=== PATIENT | male | born 1960 | race Caucasian/White ===

== ENCOUNTER 2019-09-14 10:53 | Outpatient (CLI) | payer OTHER, SELFPAY ==
--- NOTE | 2019-09-14 11:01 | US_ITS ---
WS: [id number] ULTRASOUND ABDOMEN LIMITED CLINICAL INFORMATION: RUQ PAIN COMPARISON: None. FINDINGS: Liver Size: Enlarged Craniocaudal length: 20.1 cm. Echogenicity: Diffuse fatty infiltration Surface nodularity: None. Mass (size and location): None. Bile ducts Intrahepatic ducts: Normal. Common bile duct diameter: 5.5 mm. Gallbladder Normal. Gallstones: None. Gallbladder sludge: None. Gallbladder wall thickening: None. Pericholecystic fluid: None. Sonographic Juan sign: Absent. Pancreas Normal as visualized. Right kidney: Normal. Hydronephrosis: None. Size: 11.5 cm x 6.6 cm x 6.1 cm. Right upper pole renal cyst measuring 1.4 x 1.3 x 1.4 cm Abdominal aorta and IVC Visualized portions are normal. Ascites: None. US/US abdomen limited [id number] IMPRESSION: 1. Hepatomegaly with diffuse fatty infiltration. 2. Gallbladder is normal. 3. No hydronephrosis in right kidney. 4. Right renal cyst measuring 1.4 x 1.3 x 1.4 cm
== END 2019-09-14 10:54 | disposition home or self-care (01) ==
LOC: RAD 10:56
PROVIDERS: Family Provider Family Medicine; PCP Family Medicine; Visit Provider Family Medicine
DX: K76.0 Fatty (change of) liver, not elsewhere classified (principal); N28.1 Cyst of kidney, acquired; R10.11 Right upper quadrant pain
CPT/HCPCS: 76705

== ENCOUNTER 2019-09-15 22:43 | Emergency (ER) | payer OTHER, SELFPAY ==
[2019-09-15 22:48] VITALS: BP 152/90; PULSE 71; RESP 18; TEMP 36.4; O2SAT 98; BMI 29.1
--- NOTE | 2019-09-15 22:58 | ED_ITS ---
Entered by Tonie Harris, acting as scribe for Jose Pierce DO HPI - Extremity Problem General: Chief complaint: Extremity Injury, Upper Stated complaint: right arm pain Time Seen by Provider: 09/15/19 23:12 Source: patient Mode of arrival: ambulatory Limitations: no limitations History of Present Illness: HPI Narrative: 59 yo m came to the er for rt shoulder pain. Pt states that [facility] and was told he had a bone spur. Pt states that he has been in so much pain and has not bee able to sleep or move his shoulder at all. Pt states that he cannot move his shoulder and has pain radiating down his arm. MD Complaint: extremity pain Onset (ago): day(s) (today) Pain Consistency: constant Location: right (shoulder) Quality: sharp Radiation: proximal and distal Relieving factors: nothing Associated symptoms: Reports no associated symptoms; Deny chest pain, fever(s) or rash Review of Systems Const: Denies: fever or chills Eyes: Denies: change in vision or blurry vision Card: Denies: chest pain, palpitations, irregular heart rhythm, edema, shortness of breath on exertion or shortness of breath when lying down Resp: Denies: shortness of breath, productive cough, non-productive cough or wheezing GI: Denies: abdominal pain, nausea or vomiting : Denies: difficulty urinating or blood in urine Musc: Denies: neck pain Skin/Breast: Denies: rash, itching or redness Neuro: Denies: headache, dizziness, vertigo or confusion PFSH ED PFSH: Statuses (acute, chronic, etc) shown below reflect problem list status as previously entered and may not be historically accurate Social History Smoking and tobacco status: never smoked Physical Exam Const: GENERAL APPEARANCE: well developed ORIENTATION/CONSCIOUSNESS: Yes oriented to person, Yes oriented to place and Yes oriented to time HENMT: COMMON NORMALS: normocephalic, external ears normal and external nose normal HEAD & SCALP: normocephalic; no scalp tenderness FACE & SINUS: normal facial exam NOSE: external nose normal and no nasal discharge EXTERNAL EAR: Yes external ears normal MOUTH: tongue normal Eye: COMMON NORMALS: PERRL, EOMs intact bilaterally and conjunctivae normal EYELID: eyelids normal CONJUNCTIVA: Yes conjunctivae normal PUPIL: Yes PERRL Neck/C-Spine: COMMON NORMALS: full ROM GENERAL: No tracheal deviation CERVICAL SPINE: Yes normal cervical lordosis and No cervical spine tenderness Chest: COMMONS NORMALS: inspection of chest normal CHEST: No tenderness Resp: COMMON NORMALS: clear to auscultation bilaterally EFFORT & INSPECTION: No tachypneic, No respiratory distress, No retractions, No uses accessory muscles and No tracheal deviation AUSCULTATION: clear to auscultation bilaterally, no rhonchi, no wheezes and lung sounds not diminished Cardio: COMMON NORMALS: regular rate and regular rhythm RATE: regular rate RHYTHM: regular rhythm HEART SOUNDS: no murmurs PERIPHERAL PULSES: radial pulses present GI: INSPECTION: No abdominal distension AUSCULTATION: No hyperactive bowel sounds and No hypoactive bowel sounds PALPATION: No guarding and No rigid Extremity: NARRATIVE EXTREMITY EXAM: Examination of the right shoulder reveals tenderness over the biceps groove. There is some mild joint line tenderness. There is mild rotator cuff footprint tenderness. No AC joint tenderness. Main area of tenderness is the biceps. He has limited range of motion due to pain. There is no swelling or effusion noted by palpation. Neuro: SENSORIUM/ORIENTATION: Yes oriented to person, Yes oriented to place and Yes oriented to time Psych: COMMON NORMALS: mental status grossly normal Skin: COMMON NORMALS: no rashes or lesions noted GENERAL SKIN EXAM: no rashes or lesions noted Course ED course: 59-year-old male with nontraumatic right-sided shoulder pain. He cries on exam. X-ray reveals some mild glenohumeral arthritis. There is significant AC joint arthritis with spurring. There is also evidence of calcific tendinopathy of the rotator cuff. No cause for concern of infection. Vital Signs: Vital signs: Vital Signs Temperature 97.6 F 09/15/19 22:48 Pulse Rate 69 09/16/19 00:25 Respiratory Rate 17 09/16/19 00:25 Blood Pressure 139/85 09/16/19 00:25 Pulse Oximetry 96 09/16/19 00:25 Discharge Plan Discharge Patient Disposition: Home, Self-Care Clinical Impression: Bicipital tendinitis, right shoulder, Calcific tendinitis of right shoulder Condition: Stable Prescriptions: [place] 7.5-325 mg tablet 1 tab PO Q6H Qty: 10 RF: 0 Medrol (M[place]esh) 4 mg tablets,dose pack See Rx Instructions .ROUTE .COMPLEX Qty: 21 RF: 0 Discharge Orders: Discharge Order (Routine); Ordered 09/16/19 Ordered By: Jose Pierce Referrals: Kady Murguia DO [Primary Care Provider] - 4-7 days Discharge Diet: Usual diet Discharge Activity: Increase activity as tolerated Patient Instructions: Rotator Cuff Tendinitis (ED), Calcific Tendinitis (ED) Discharge Date/Time: 09/16/19 00:26 Coding Level of Care Code ED Manager Copy for Chg Fwd The documentation recorded by the Steven martinez Stephanie Lyn, accurately reflects the service I personally performed and the decisions made by Stan carlos Jeremy John, DO Sep 15, 2019 22:43
--- NOTE | 2019-09-15 23:34 | XRR_ITS ---
PROCEDURE INFORMATION: Exam: XR Right Shoulder Exam date and time: 09/15/2019 11:52 PM Age: 59 years old Clinical indication: Right; Patient HX: RT shoulder pain, states he has a bone spur TECHNIQUE: Imaging protocol: XR Right shoulder. Views: 2 or more views. COMPARISON: No relevant prior studies available. FINDINGS: Bones/joints: Mild degenerative changes of the right acromioclavicular and glenohumeral joints. Multiple tiny calcified density superior to the humeral head may be loose bodies within the glenohumeral joint versus tendon calcifications. Soft tissues: Normal. XR/XR shoulder RT min 2V* [id number] IMPRESSION: Mild degenerative changes.
[2019-09-15 23:49] VITALS: RESP 18; O2SAT 68
[2019-09-15] MEDS: HYDROmorphone 1 mg/mL INJ 1 mL 2 MG IM (23:49)
[2019-09-15] MEDS: ketorolac 10 mg Tablet PO (23:50)
[2019-09-15] MEDS: ondansetron 4 MG Tablet PO (23:50)
[2019-09-16] MEDS: dexamethasone 4 mg Tablet 8 MG PO (00:05)
[2019-09-16 00:25] VITALS: BP 139/85; PULSE 69; RESP 17; O2SAT 96
== END 2019-09-16 00:26 | disposition home or self-care (01) ==
PROVIDERS: Emergency Provider Emergency Medicine; Family Provider Family Medicine; PCP Family Medicine
DX: M75.21 Bicipital tendinitis, right shoulder (principal); M75.31 Calcific tendinitis of right shoulder
CPT/HCPCS: 73030; 96372; 99281; 99283; J1170; J8540; Q0162

== ENCOUNTER → 2019-10-12 08:00 | Outpatient (BNVA) | payer OTHER, SELFPAY | PROVIDERS: Family Provider Family Medicine; PCP Family Medicine; Visit Provider Urology | DX: R33.9 Retention of urine, unspecified (principal); R97.20 Elevated prostate specific antigen [PSA]; N40.1 Benign prostatic hyperplasia with lower urinary tract symptoms | CPT/HCPCS: 81001 ==

== ENCOUNTER 2019-10-25 20:00 | Outpatient (CLI) | payer OTHER, SELFPAY | END 2019-10-25 20:01 | disposition home or self-care (01) | LOC: SLEEP 10-26 10:21 | PROVIDERS: Family Provider Family Medicine; PCP Family Medicine; Visit Provider Emergency Medicine Emergency Medical Services | DX: G47.33 Obstructive sleep apnea (adult) (pediatric) (principal) | CPT/HCPCS: 95810 ==

== ENCOUNTER → 2020-01-16 07:48 | Outpatient (BNVA) | payer OTHER, SELFPAY | PROVIDERS: Family Provider Family Medicine; PCP Family Medicine; Visit Provider Urology | DX: R97.20 Elevated prostate specific antigen [PSA] (principal); N40.1 Benign prostatic hyperplasia with lower urinary tract symptoms; R35.0 Frequency of micturition | CPT/HCPCS: 81001; 84153 ==

== ENCOUNTER → 2020-07-18 07:40 | Outpatient (BNVA) | payer OTHER, SELFPAY | PROVIDERS: Family Provider Family Medicine; PCP Family Medicine; Visit Provider Urology | DX: N40.1 Benign prostatic hyperplasia with lower urinary tract symptoms (principal); R35.0 Frequency of micturition; R97.20 Elevated prostate specific antigen [PSA] | CPT/HCPCS: 81003; 84153 ==

== ENCOUNTER 2020-11-22 12:01 | Emergency (ER) | payer OTHER, SELFPAY ==
[2020-11-22 12:09] VITALS: BP 138/84; PULSE 78; RESP 18; TEMP 36.4; O2SAT 96; BMI 27.8
--- NOTE | 2020-11-22 13:05 | W.ED.ABDPA2 ---
HPI - Abdominal Pain General: Chief Complaint: Abdominal Pain Stated Complaint: RUQ PAIN Time Seen by Provider: 11/22/20 12:36 Source: patient Mode of arrival: ambulatory Limitations: no limitations History of Present Illness: HPI narrative: Patient presents to the emergency department with right upper quadrant pain that started earlier today. He noticed the pain when he was riding a golf cart [place] the [place]. [place] Yesterday, he played golf and after he finished his golf session he went to the driving range and hit about 800 shots. He thinks his pain is from the golf and that he may have pulled a muscle but feels food and nutrition services supervisor thought it may be his appendix and so asked him to come to the emergency department to be evaluated. MD elicited complaint: abdominal pain Pertinent past history: none Onset (ago): hour(s) (4) Pain Consistency: constant Location: RUQ Severity: moderate Quality: sharp Radiation: none Migration to: no migration Exacerbating factors: movement Relieving factors: nothing Associated Symptoms: Denies anorexia, belching, bloating, change in bowel habits, change in stool character, chills, coffee ground emesis, constipation, GI cramping, diarrhea, dyspepsia, dysuria, excessive flatus, fever(s), heartburn, hematochezia, hematuria, hematemesis, fecal incontinence, loose stools, melena, nausea, poor appetite, syncope and vomiting Review of Systems General: Reports: 10 or more systems reviewed and unremarkable except in HPI and below Const: Denies: fever(s) or chills Card: Denies: syncope GI: Denies: nausea, vomiting, hematemesis, coffee ground emesis, heartburn, diarrhea, constipation, bloating, GI cramping, belching, excessive flatus, fecal incontinence, change in bowel habits, change in stool character, hematochezia or melena : Denies: dysuria or hematuria PFSH ED PFSH: Medical History Benign prostatic hyperplasia with lower urinary tract symptoms Elevated PSA Erectile dysfunction Urinary retention Surgical History H/O prostate biopsy History of amputation of finger Status post colonoscopy Family History Mother , IN HER 60'S COPD (chronic obstructive pulmonary disease) Father Prostate cancer Denies family history of Anesthesia complication Bleeding disorder Social History Smoking and tobacco status: former smoker Alcohol intake: current Alcohol intake frequency: holidays/special occasions only Adopted: No Caregiver/support person: No Lives independently: No Household members: spouse Marital status: Current occupational status: employed History of recent travel: No Current gender identity: Male Physical Exam Const: COMMON NORMALS: no acute distress, average body habitus, patient oriented x3, no limitations, healthy appearing, alert and well nourished Neck/C-Spine: COMMON NORMALS: no meningeal signs and no JVD Resp: COMMON NORMALS: normal respiratory effort, No retractions, No use of accessory muscles, clear to auscultation bilaterally and percussion normal AUSCULTATION: clear to auscultation bilaterally PERCUSSION: percussion normal Cardio: COMMON NORMALS: no JVD, regular rate, regular rhythm, S1 normal heart sound present, S2 normal heart sound present, No gallops present (Cardio), No clicks present (Cardio), No murmurs present (Cardio), No rub (Cardio) and Peripheral pulses 2+ throughout RATE: regular rate RHYTHM: regular rhythm HEART SOUNDS: S1 normal heart sound present and S2 normal heart sound present PERIPHERAL PULSES: Peripheral pulses 2+ throughout GI: COMMON NORMALS: Normal to inspection, nondistended, normoactive bowel sounds present, Soft to palpation, No hepatosplenomegaly present, no masses and no bruits PALPATION: Yes Soft to palpation, Yes Tenderness to palpation present (GI) Details: RUQ and Yes No hepatosplenomegaly present Extremity: COMMON NORMALS: normal to inspection, full ROM, capillary refill normal, no calf tenderness and no pedal edema Neuro: COMMON NORMALS: patient oriented x3 SENSORIUM/ORIENTATION: Yes alert MENINGEAL SIGNS: Yes no meningeal signs Skin: COMMON NORMALS: no rashes or lesions noted, no wounds, turgor normal, no jaundice, no petechiae and no mottling GENERAL SKIN EXAM: no rashes or lesions noted and turgor normal Course Reevaluation(s): Reevaluation #1: Discussed his lab and findings with him, negative for acute findings. Liver function test normal, no signs of an infection and UA negative. He most likely has a strain of his abdominal wall muscles and will be managed as such conservatively. He voiced understanding and is in agreement with the plan. Time: 14:06 Vital Signs: Vital signs: Vital Signs Temperature 97.6 F 11/22/20 12:09 Pulse Rate 78 11/22/20 12:09 Respiratory Rate 18 11/22/20 12:09 Blood Pressure 138/84 11/22/20 12:09 Pulse Oximetry 96 11/22/20 12:09 MDM - Abdominal Pain MDM Narrative: Medical decision making narrative: 60 year old male who presents to the ED with RUQ pain. He played a lot of golf yesterday and he thought this may be the cause of his pain. He however wanted to be checked to make sure nothing life-threatening was going on. Examination and evaluation was unremarkable in the emergency department and there was no indication for imaging. He is discharged home and is managed as a case of a muscular strain. Medical Records: Attestation: I reviewed the patient's medical records. Lab Data: Attestation: I reviewed the patient's lab results. Labs: Lab Results 11/22/20 11/22/20 11/22/20 Range/Units 12:50 13:28 13:28 WBC 7.1 (4.0-10.0) 10^3/ uL RBC 5.45 H (4.1-5.3) 10^6/u L Hgb 15.1 (11.7-16.6) g/dL Hct 46.0 (42.0-52.0) % MCV 84.4 (80-94) fL MCH 27.7 L (28.0-34.0) pg MCHC 32.8 (30.0-36.0) g/dL RDW 12.8 (12.1-15.1) % Plt Count 258 (130-400) 10^3/c mm MPV 11.1 H (7.4-10.4) fL Neut % (Auto) 69.6 % Lymph % (Auto) 21.9 % Dickenson % (Auto) 7.1 % Eos % (Auto) 0.3 % Baso % (Auto) 0.7 % Neut # (Auto) 4.94 (1.8-7.7) 10^3/u L Lymph # (Auto) 1.6 (0.8-4.8) 10^3/u L Dickenson # (Auto) 0.5 (0.2-0.9) 10^3/u L Eos # (Auto) 0.0 (0.0-0.8) 10^3/u L Baso # (Auto) 0.1 (0.0-0.1) 10^3/u L Nucleated RBC % (a uto) 0 % Nucleated RBCs # 0.0 /100WBC Sodium 136 (136-145) mmol/L Potassium 4.0 (3.5-5.1) mmol/L Chloride 104 (98-107) mmol/L Carbon Dioxide 24 (22-29) mmol/L Anion Gap 12.0 (5-19) BUN 14 (8-23) mg/dL Creatinine 0.8 (0.7-1.2) mg/dL GFR Calculation 98.0 (90-130) mL/min Glucose 91 (65-115) mg/dL Calculated Osmolal ity 282 L (285-295) mOsm/k g Calcium 8.6 (8.5-10.5) mg/dL Total Bilirubin 0.3 (0.15-1.2) mg/dL AST 14 (0-40) U/L ALT 24 (0-41) U/L Alkaline Phosphata se 57 (40-130) IU/L C-Reactive Protein 1.9 (0.0-4.9) mg/L Total Protein 6.7 (6.6-8.7) g/dL Albumin 4.3 (3.5-5.2) g/dL Globulin 2.4 (1.3-4.6) g/dL Lipase 40 (13-60) U/L Urine Color Yellow (Yellow) Urine Appearance Clear (CLEAR) Urine pH 5 (5-7) Ur Specific Gravit y 1.020 (1.005-1.030) Urine Protein Neg (Negative) Urine Glucose (UA) Norm (Normal) Urine Ketones Negative (Negative) Urine Blood Neg (Negative) Urine Nitrate Negative (Negative) Urine Bilirubin Neg (Negative) Urine Urobilinogen Norm (Negative) mg/dL Ur Leukocyte Maddie ase Negative (Negative) Discharge Plan Discharge Patient Disposition: Home Clinical Impression: Abdominal muscle strain Qualifiers: Encounter type: initial encounter Qualified Code(s): S39.011A - Strain of muscle, fascia and tendon of abdomen, initial encounter Condition: Stable Prescriptions: Continued meloxicam 15 mg tablet 15 mg PO DAILY PRN (Reason: Pain) RF: 0 tamsulosin 0.4 mg capsule 0.4 mg PO QAM RF: 0 finasteride 5 mg tablet 5 mg PO QAM RF: 0 Discharge Orders: Discharge ED (Routine); Ordered 11/22/20 Ordered By: Boone Fenton Referrals: Lorenzo Avitia DO [Primary Care Provider] - 1-3 days Discharge Diet: Usual diet Discharge Activity: Limit activity as instructed Patient Instructions: Muscle Strain (ED) Activity Restrictions/Additional Instructions: Return for any new or worsening symptoms. Take Tylenol or ibuprofen as needed for pain. Apply ice to the affected area for 15 minutes at the time with at least 20 minutes break between each application of ice for the first 24 hours, and then you can switch to warm compress like a heating pad. Follow-up with your primary care provider within 3 days. Coding Level of Care Code ED Bicycle Mechanic for Josr Bennett
[2020-11-22 13:34] LABS: Basophils # 0.1 10^3/uL (0.0-0.1); Basophils % 0.7 %; Eosinophils % 0.3 %; Hemoglobin 15.1 g/dL (11.7-16.6); Lymphocytes # 1.6 10^3/uL (0.8-4.8); Lymphocytes % 21.9 %; Mean Corpuscular HGB Conc 32.8 g/dL (30.0-36.0); Mean Corpuscular Hemoglobin 27.7 pg (28.0-34.0); Mean Corpuscular Volume 84.4 fL (80-94); Mean Platelet Volume 11.1 fL (7.4-10.4); Monocytes # 0.5 10^3/uL (0.2-0.9); Monocytes % 7.1 %; Neutrophils # 4.94 10^3/uL (1.8-7.7); Neutrophils % 69.6 %; Nucleated Red Blood Cells % 0 %; Platelet Count 258 10^3/cmm (130-400); Red Blood Count 5.45 10^6/uL (4.1-5.3); Red Cell Distribution Width 12.8 % (12.1-15.1); White Blood Count 7.1 10^3/uL (4.0-10.0)
[2020-11-22 13:52] LABS: Add Urine Microscopic? NO; Charge for UA Resulting for Rev
[2020-11-22 13:54] LABS: Bilirubin Urine Neg (Negative); Blood Urine Neg (Negative); Glucose Urine UA Norm (Normal); Ketones Urine Negative (Negative); Leukocyte Esterase Urine Negative (Negative); Nitrate Urine Negative (Negative); Protein Urine Neg (Negative); Urine Appearance Clear (CLEAR); Urine Color Yellow (Yellow); Urobilinogen Urine Norm (Negative); pH Urine 5 (5-7)
[2020-11-22 13:59] LABS: Alanine Aminotransferase 24 U/L (0-41); Albumin Level 4.3 g/dL (3.5-5.2); Alkaline Phosphatase 57 IU/L (40-130); Aspartate Amino Transferase 14 U/L (0-40); Blood Urea Nitrogen 14 mg/dL (8-23); C Reactive Protein 1.9 mg/L (0.0-4.9); Calcium 8.6 mg/dL (8.5-10.5); Carbon Dioxide 24 mmol/L (22-29); Chloride 104 mmol/L (98-107); Globulin 2.4 g/dL (1.3-4.6); Glucose 91 mg/dL (65-115); Lipase 40 U/L (13-60); Osmolality Calculated 282 mOsm/kg (285-295); Sodium 136 mmol/L (136-145); Total Bilirubin 0.3 mg/dL (0.15-1.2); Total Protein 6.7 g/dL (6.6-8.7)
== END 2020-11-22 14:14 | disposition home or self-care (01) ==
PROVIDERS: Emergency Provider Family Medicine; PCP Emergency Medicine Emergency Medical Services
DX: S39.011A Strain of muscle, fascia and tendon of abdomen, initial encounter (principal); Z87.891 Personal history of nicotine dependence; X50.3XXA Overexertion from repetitive movements, initial encounter; Y93.53 Activity, golf
CPT/HCPCS: 80053; 81003; 83690; 85025; 86140; 99283

== ENCOUNTER 2021-05-07 11:46 | Emergency (ER) | payer OTHER, SELFPAY ==
--- NOTE | 2021-05-07 12:18 | W.ED.CHESTPA ---
HPI - Chest Pain General: Chief Complaint: Chest Pain Stated Complaint: [facility] Time Seen by Provider: 05/07/21 12:18 History of Present Illness: HPI narrative: Mr. Collazo is a 61-year-old gentleman without significant relevant past medical history who presents emergency department due to chest pain. He reports occasional episodes of chest discomfort which self resolved in the past over the last night, starting at rest, he had a 30 to 45-minute episode of chest pressure squeezing in the middle of his chest that was moderate in intensity. No other typical associated cardiac chest pain factors. He cannot think of specific provoking, exacerbating, or alleviating factors. No other changes in health reported. He saw his PCP today and was referred to the emergency department. Review of Systems General: Reports: 10 or more systems reviewed and unremarkable except in HPI and below PFSH ED PFSH: Medical History Benign prostatic hyperplasia with lower urinary tract symptoms Elevated PSA Erectile dysfunction Urinary retention Surgical History H/O prostate biopsy History of amputation of finger Status post colonoscopy Family History Mother , IN HER 60'S COPD (chronic obstructive pulmonary disease) Father Prostate cancer Denies family history of Anesthesia complication Bleeding disorder Social History Smoking and tobacco status: former smoker Alcohol intake: current Alcohol intake frequency: holidays/special occasions only Adopted: No Caregiver/support person: No Lives independently: No Household members: spouse Marital status: Current occupational status: employed History of recent travel: No Current gender identity: Male Physical Exam Narrative: EXAM NARRATIVE: GENERAL/CONSTITUTIONAL - well-appearing. No acute distress. Eyes - PERRL, no conjunctival injection ENMT - Atraumatic external nose and ears. Moist mucous membranes NECK - supple. trachea midline CARDIOVASCULAR - regular rate and rhythm. No peripheral edema RESPIRATORY -clear to auscultation bilaterally. No retractions or accessory muscle use. ABDOMEN/GI - Nontender/Nondistended. No tenderness to percussion or evidence of peritonitis MSK - Extremities without obvious deformity or tenderness to palpation SKIN - Warm, Dry NEURO - alert and appropriately oriented. Moves all extremities equally. PSYCH - Appropriate mood and affect Course ED course: - Patient was seen and evaluated by me at bedside - Patient placed on cardiac monitors, IV access obtained - Initial evaluation notable for no acute distress, nontoxic appearance - Labs notable for negative troponin greater than 6 hours from symptom onset - Imaging notable for no acute abnormality to explain symptoms - Upon serial reexamination after treatment the patient was similar without recurrence of pain - Based on patient history, evaluation, labs, and imaging as interpreted the most likely cause of the patient's condition is chest pain. The patient is likely somewhere between low and moderate risk using heart score. I discussed risk stratification and major adverse cardiac events with the patient. I offered him admission for stress testing which he declined and prefers to follow-up as an outpatient. Unfortunately, as he normally follows at the [facility], case management people to directly schedule stress testing and he will require cardiology approval first. - The results of ED evaluation were discussed with the patient including prescriptions and/or symptomatic cares (if applicable) including appropriate and responsible use, followup plan, and return precautions. The patient verbalized understanding and felt safe for discharge. - Patient discharged in satisfactory condition. Vital Signs: Vital signs: Vital Signs Temperature 97.0 F L 05/07/21 12:25 Pulse Rate 62 05/07/21 14:20 Respiratory Rate 15 05/07/21 14:20 Blood Pressure 127/74 05/07/21 14:20 Pulse Oximetry 99 05/07/21 14:20 MDM - Chest Pain Medical Records: Attestation: I reviewed the patient's medical records. Lab Data: Attestation: I reviewed the patient's lab results. Labs: Lab Results 05/07/21 05/07/21 05/07/21 12:41 12:41 12:41 WBC 4.7 10^3/uL 10^3/ uL (4.0-10.0) RBC 5.85 10^6/uL H 10 ^6/uL (4.1-5.3) Hgb 16.3 g/dL g/dL (11.7-16.6) Hct 49.7 % % (42.0-52.0) MCV 85.0 fl fl (80-94) MCH 27.9 pg L pg (28.0-34.0) MCHC 32.8 g/dL g/dL (30.0-36.0) RDW 13.0 % % (12.1-15.1) Plt Count 217 10^3/cmm 10^3 /cmm (130-400) MPV 11.7 fL H fL (7.4-10.4) Neut % (Auto) 64.0 % % Lymph % (Auto) 28.1 % % Sac % (Auto) 6.3 % % Eos % (Auto) 0.4 % % Baso % (Auto) 0.6 % % Neut # (Auto) 3.03 10^3/uL 10^3 /uL (1.8-7.7) Lymph # (Auto) 1.3 10^3/uL 10^3/ uL (0.8-4.8) Sac # (Auto) 0.3 10^3/uL 10^3/ uL (0.2-0.9) Eos # (Auto) 0.0 10^3/uL 10^3/ uL (0.0-0.8) Baso # (Auto) 0.0 10^3/uL 10^3/ uL (0.0-0.1) Nucleated RBC % (a uto) 0 % % Nucleated RBCs # 0.0 /100WBC /100W BC Sodium 134 mmol/L L mmol /L (136-145) Potassium 5.0 mmol/L mmol/L (3.5-5.1) Chloride 100 mmol/L mmol/L (98-107) Carbon Dioxide 26 mmol/L mmol/L (22-29) Anion Gap 13.0 (5-19) BUN 14 mg/dL mg/dL (8-23) Creatinine 0.7 mg/dL mg/dL (0.7-1.2) GFR Calculation 113.9 mL/min mL/m in (90-130) Glucose 90 mg/dL mg/dL (65-115) Calculated Osmolal ity 278 mOsm/kg L mOs m/kg (285-295) Calcium 9.3 mg/dL mg/dL (8.5-10.5) Total Bilirubin 0.7 mg/dL mg/dL (0.15-1.2) AST 21 U/L U/L (0-40) ALT 30 U/L U/L (0-41) Alkaline Phosphata se 67 IU/L IU/L (40-130) Troponin T Baselin e 8 ng/L ng/L (0-15) NT-Pro-B Natriuret Pep 47 pg/mL pg/mL (0-125) Total Protein 6.7 g/dL g/dL (6.6-8.7) Albumin 4.4 g/dL g/dL (3.5-5.2) Globulin 2.3 g/dL g/dL (1.3-4.6) Lipase 58 U/L U/L (13-60) EKG Data^: EKG 1: Attestation: I personally reviewed and interpreted this EKG as follows: EKG interpretation date: 05/07/21 EKG interpretation time: 12:59 Interpretation: Twelve-lead shows a regular rhythm at 58 NC interval 184, QRS duration 132, QTc 449 Normal axis Interpretation: Sinus bradycardia. Bundle-branch block Discharge Plan Discharge Patient Disposition: Home Clinical Impression: Chest pain, Abnormal ECG Condition: Stable Prescriptions: No Action ibuprofen 200 mg Tablet 400 - 600 mg PO Q4H PRN (Reason: Pain) RF: 0 meloxicam 15 mg tablet 15 mg PO DAILY PRN (Reason: Pain) RF: 0 tamsulosin 0.4 mg capsule 0.4 mg PO QAM RF: 0 finasteride 5 mg tablet 5 mg PO QAM RF: 0 Discharge Orders: Discharge ED (Routine); Ordered 05/07/21 Ordered By: Randolph Travis Referrals: Lorenzo Avitia DO [Primary Care Provider] - Discharge Diet: Usual diet Discharge Activity: Resume usual activity Patient Instructions: Chest Pain (ED) Activity Restrictions/Additional Instructions: Thank you for visiting the emergency department. You were seen and evaluated for chest pain. The exact cause of your symptoms is somewhat unclear, as discussed we recommend cardiology follow-up with stress test and echocardiogram. Please follow-up with your primary care provider. Please return to the emergency department for recurrence of pain or anything else that you are concerned about and feel needs emergency department evaluation. Coding Level of Care Code ED Laundry Housekeeper for Josr Bennett
[2021-05-07 12:20] VITALS: BP 139/73; PULSE 62; RESP 20; O2SAT 98; BMI 29.0
[2021-05-07 12:25] VITALS: BP 139/73; PULSE 62; RESP 11; TEMP 36.1; O2SAT 98
--- NOTE | 2021-05-07 12:26 | ECG_ITS ---
[facility] Test Date: 2021-05-07 Pat Name: Randolph Collazo Department: Room: Gender: Male Behavioral Analyst: : 1960 Requested By: Randolph Travis Order Number: [id number] Tawanda MD: Jenny Polanco M.D. Measurements Intervals [place] Rate: 58 P: 25 AR: 184 QRS: 72 QRSD: 132 T: 17 QT: 452 QTc: 446 Interpretive Statements SINUS BRADYCARDIA RIGHT BUNDLE BRANCH BLOCK [120+ ms QRS DURATION, UPRIGHT V1, 40+ ms S IN I/aVL/V4/V5/V6] No previous ECG available for comparison Electronically Signed On 05-07-2021 23:32:04 CDT by Jenny Polanco M.D. [id number]
--- NOTE | 2021-05-07 12:26 | XR_ITS ---
WS: [id number] Portable AP upright chest, 05/07/2021 Clinical Data: chest pain Comparison: None. Findings: No nodules, masses or effusions are seen. The heart is normal. The pulmonary vascularity is not increased. No pneumonia or pneumothorax is seen. There is minimal patchy atelectasis at the left costophrenic angle. Monitor leads are on the chest wall. XR/XR chest 1V portable [id number] Impression: Negative chest.
[2021-05-07] MEDS: aspirin 81 mg Chew Tablet 324 MG PO (12:33)
--- NOTE | 2021-05-07 12:34 | PC.NURSE ---
PATIENT CONNECTED TO MORTGAGE OR LOAN UNDERWRITER.
[2021-05-07 13:05] LABS: Basophils % 0.6 %; Eosinophils % 0.4 %; Hematocrit 49.7 % (42.0-52.0); Hemoglobin 16.3 g/dL (11.7-16.6); Lymphocytes # 1.3 10^3/uL (0.8-4.8); Lymphocytes % 28.1 %; Mean Corpuscular HGB Conc 32.8 g/dL (30.0-36.0); Mean Corpuscular Hemoglobin 27.9 pg (28.0-34.0); Mean Platelet Volume 11.7 fL (7.4-10.4); Monocytes # 0.3 10^3/uL (0.2-0.9); Monocytes % 6.3 %; Neutrophils # 3.03 10^3/uL (1.8-7.7); Nucleated Red Blood Cells % 0 %; Platelet Count 217 10^3/cmm (130-400); Red Blood Count 5.85 10^6/uL (4.1-5.3); White Blood Count 4.7 10^3/uL (4.0-10.0)
[2021-05-07 13:31] LABS: Troponin(5th) Baseline 8 ng/L (0-15)
[2021-05-07 13:40] LABS: Alanine Aminotransferase 30 U/L (0-41); Albumin Level 4.4 g/dL (3.5-5.2); Alkaline Phosphatase 67 IU/L (40-130); Blood Urea Nitrogen 14 mg/dL (8-23); Calcium 9.3 mg/dL (8.5-10.5); Carbon Dioxide 26 mmol/L (22-29); Chloride 100 mmol/L (98-107); Globulin 2.3 g/dL (1.3-4.6); Glomerular Filtration Rate 113.9 mL/min (90-130); Glucose 90 mg/dL (65-115); Lipase 58 U/L (13-60); NT Pro B Type Natriuretic Pept 47 pg/mL (0-125); Osmolality Calculated 278 mOsm/kg (285-295); Sodium 134 mmol/L (136-145); Total Bilirubin 0.7 mg/dL (0.15-1.2); Total Protein 6.7 g/dL (6.6-8.7)
[2021-05-07 13:42] VITALS: BP 139/73; PULSE 60; RESP 16; O2SAT 98
[2021-05-07 13:48] LABS: Aspartate Amino Transferase 21 U/L (0-40)
[2021-05-07 14:20] VITALS: BP 127/74; PULSE 62; RESP 15; O2SAT 99
--- NOTE | 2021-05-08 11:49 | DCPLANNER ---
Mark muñoz had message to schedule a follow up appointment for patient with heart care. revenue accounting manager called heart care, spoke with Vijaya, gave clinic patients information. A follow up appointment was scheduled for Wednesday, May 19, 2021 at 2:[address] Polanco. revenue accounting manager called patient with appointment information. Patient has [employer] insurance, case assembler emailed patients information to November with [facility], with appointment information so that the authorization process could be started.
--- NOTE | 2021-06-26 07:53 | DCPLANNER ---
Patient had a follow up appointment scheduled for 05.19.[address] Polanco at [facility] - patient did attend appointment.
== END 2021-05-07 14:20 | disposition home or self-care (01) ==
PROVIDERS: Emergency Provider Emergency Medicine; PCP Emergency Medicine Emergency Medical Services
DX: R07.9 Chest pain, unspecified (principal); R94.31 Abnormal electrocardiogram [ECG] [EKG]; Z87.891 Personal history of nicotine dependence
CPT/HCPCS: 71045; 80053; 83690; 83880; 84484; 85025; 93005; 99283

== ENCOUNTER 2021-06-25 12:35 | Outpatient (CLI) | payer OTHER, SELFPAY ==
[2021-06-25 12:40] VITALS: BMI 30.7
--- NOTE | 2021-06-25 12:40 | ECG_ITS ---
[facility] Test Date: 2021-06-25 Pat Name: Randolph Collazo Department: Room: Gender: Male Pattern Worker: Camille Fierro : 1960 Requested By: Jenny Polanco Order Number: [id number] Tawanda MD: Jenny Polanco M.D. Interpretive Statements NAME OF STUDY: TREADMILL STRESS ECHOCARDIOGRAM INDICATION: Chest Pain, PROCEDURE: The baseline electrocardiogram showed [normal sinus rhythm right bundle branch block pattern. Nonspecific T wave changes. . At the baseline, the patient's blood pressure was 153/93 mm Hg with a heart rate of 87. The patient exercised for 8 minutes on a standard Pedro Luis protocol. Patient attained a maximum heart rate of 136 beats per minute( 86 % of the maximum predicted heart rate) with a blood pressure at the peak exercise of 218/110 mm Hg. The EKG at the peak exercise revealed no significant changes. Patient did not have any chest pain or any significant arrhythmis with the exercise The echocardiographic pictures were taken at the baseline, immediate post exercise and during the recovery phase, at the standard views. During the recovery phase, there were no new changes. Blood pressure at the end of the recovery phase was 148/73 mm Hg with a heart rate of 85 per minute. CONCLUSION: 1. No significant EKG changes with the [treadmill exercise 2. No exercise-induced chest pain or cardiac arrhythmia 3. Fair exercise tolerance, attained a maximum of 10.2 METs 4. Echocardiographic pictures were taken at the standard views; see separate report. Electronically Signed On 06-26-2021 23:27:08 CLIENT INSIGHTS CONSULTANT by Jenny Polanco M.D. [id number]
[2021-06-25 13:14] VITALS: BP 171/57; PULSE 95
--- NOTE | 2021-06-25 13:45 | USCV_ITS ---
Randolph Collazo Age: 61 Gender: M : 1960 Exam Date: 06/25/2021 12:58 Ordering Phys: Jenny Polanco MD ([email or web address]) Technologist: Exam Location: [facility] [place] Indication: CP Rhythm: Sinus Patient History: Cardiac Medications: Medications in past 24 hours: Contrast: Stress Results Protocol: Pedro Luis Total dose(mL): Exercise Duration (min:sec): METS: Resting HR: Resting BP: / Peak HR: Peak BP: / Max Predicted HR: 157 % Max Predicted HR Target HR: 133 Double Product: Stress Summary: BP Response: Reason for Termination: Cardiac Symptoms: ECG Analysis Resting ECG: Please see separate report Stress ECG: Please see separate report Arrhythmia: Please see separate report MEASUREMENTS (Male/Female) Normal Values FINDINGS The baseline echocardiogram revealing normal LV size ejection fraction. Aortic valve appeared to be thickened. Leaflets could not be visualized well. Mild concentric left ventricular hypertrophy was noted. Segmental wall motion analysis revealed mild hypokinesia of the basal septum. With the peak exercise, there was a good augmentation of all the segments with no exercise-induced wall motion abnormalities . During the recovery phase, there were no new wall motion normalities. CONCLUSIONS 1. Normal echocardiographic response to treadmill exercise. 2. No significant coronary ischemia based on the above findings Dr Jenny Polanco MD FACC (Electronically Signed) Final Date: 26 June 2021 08:49 S
== END 2021-06-25 12:36 | disposition home or self-care (01) ==
LOC: CDL 12:35
PROVIDERS: PCP Emergency Medicine Emergency Medical Services; Visit Provider Internal Medicine Cardiovascular Disease
DX: R07.89 Other chest pain (principal)
CPT/HCPCS: 93017; 93350

== ENCOUNTER → 2021-07-21 08:10 | Outpatient (BNVA) | payer OTHER, SELFPAY | PROVIDERS: PCP Emergency Medicine Emergency Medical Services; Visit Provider Urology | DX: N40.1 Benign prostatic hyperplasia with lower urinary tract symptoms (principal); R35.0 Frequency of micturition; R97.20 Elevated prostate specific antigen [PSA] | CPT/HCPCS: 81003; 84153 ==

== ENCOUNTER 2022-01-20 07:12 | Outpatient (CLI) | payer OTHER, SELFPAY | END 2022-01-20 07:13 | disposition home or self-care (01) | LOC: LAB 07:16 | PROVIDERS: PCP Emergency Medicine Emergency Medical Services; Visit Provider Urology | DX: N40.1 Benign prostatic hyperplasia with lower urinary tract symptoms (principal); R97.20 Elevated prostate specific antigen [PSA]; R35.0 Frequency of micturition | CPT/HCPCS: 36415; 51798; 81003; 84153; 99213 ==

== ENCOUNTER 2022-04-17 10:41 | Outpatient (CLI) | payer OTHER, SELFPAY | END 2022-04-17 10:42 | disposition home or self-care (01) | LOC: LAB 10:43 | PROVIDERS: PCP Emergency Medicine Emergency Medical Services; Visit Provider Urology | DX: R97.20 Elevated prostate specific antigen [PSA] (principal) | CPT/HCPCS: 36415; 84153 ==

== ENCOUNTER → 2022-04-21 07:40 | Outpatient (BNVA) | payer OTHER, SELFPAY | PROVIDERS: PCP Emergency Medicine Emergency Medical Services; Visit Provider Urology | DX: N40.1 Benign prostatic hyperplasia with lower urinary tract symptoms (principal); R97.20 Elevated prostate specific antigen [PSA]; R35.0 Frequency of micturition | CPT/HCPCS: 99213 ==

== ENCOUNTER → 2022-10-22 07:39 | Outpatient (BNVA) | payer OTHER, SELFPAY | PROVIDERS: PCP Emergency Medicine Emergency Medical Services; Visit Provider Urology | DX: R97.20 Elevated prostate specific antigen [PSA] (principal); N40.1 Benign prostatic hyperplasia with lower urinary tract symptoms; R35.0 Frequency of micturition | CPT/HCPCS: 51798; 81003; 99213 ==

== ENCOUNTER 2023-01-01 09:19 | Outpatient (CLI) | payer OTHER, SELFPAY ==
--- NOTE | 2023-01-01 09:29 | US_ITS ---
WS: [id number] TESTICULAR ULTRASOUND HISTORY: LUMP L SCROTUM AREA COMPARISON: None available. TECHNIQUE: Real-time and color Doppler imaging or utilized to perform a testicular ultrasound. Right testicle: 4.7 cm x 3.1 cm x 3.2 cm. Normal size and echogenicity. No mass or torsion. Normal color Doppler is present throughout. Systolic and diastolic velocities are both present. No significant hydrocele. Right epididymis: Normal epididymis with no increased vascularity. Left testicle: 5.2 cm x 3.0 cm x 2.9 cm. Normal size and echogenicity. No mass or torsion. Normal color Doppler is present throughout. Systolic and diastolic velocities are both present. No significant hydrocele. Left epididymis: Minimally complex cyst head of the LEFT epididymis measures 2.6 x 2.5 x 2.3 cm. A fe w low-level echoes. There is adjacent small amount of fluid in the testicle. US/US scrotum [id number] IMPRESSION: 1. No testicular mass or torsion. 2. LEFT epididymal spermatocele measures 2.6 x 2.5 x 2.3 cm.
== END 2023-01-01 09:20 | disposition home or self-care (01) ==
LOC: RAD 09:21
PROVIDERS: PCP Emergency Medicine Emergency Medical Services; Visit Provider Emergency Medicine Emergency Medical Services
DX: N43.41 Spermatocele of epididymis, single (principal); N50.89 Other specified disorders of the male genital organs
CPT/HCPCS: 76870

== ENCOUNTER → 2023-04-07 14:37 | Outpatient (BNVA) | payer OTHER, SELFPAY | PROVIDERS: PCP Emergency Medicine Emergency Medical Services; Visit Provider Nurse Practitioner Family | DX: L57.8 Other skin changes due to chronic exposure to nonionizing radiation (principal); L57.0 Actinic keratosis; B35.1 Tinea unguium; L21.8 Other seborrheic dermatitis; Z85.828 Personal history of other malignant neoplasm of skin; D22.5 Melanocytic nevi of trunk | CPT/HCPCS: 17000; 17003; 99214 ==

== ENCOUNTER → 2023-10-07 08:11 | Outpatient (BNVA) | payer OTHER, SELFPAY | PROVIDERS: PCP Emergency Medicine Emergency Medical Services; Visit Provider Nurse Practitioner Family | DX: L57.0 Actinic keratosis (principal); D22.4 Melanocytic nevi of scalp and neck; L57.8 Other skin changes due to chronic exposure to nonionizing radiation; L81.4 Other melanin hyperpigmentation; Z85.828 Personal history of other malignant neoplasm of skin | CPT/HCPCS: 17000; 99213 ==

== ENCOUNTER → 2023-10-29 07:51 | Outpatient (BNVA) | payer OTHER, SELFPAY | PROVIDERS: PCP Emergency Medicine Emergency Medical Services; Visit Provider Podiatrist Foot & Ankle Surgery | DX: M20.41 Other hammer toe(s) (acquired), right foot (principal); M20.42 Other hammer toe(s) (acquired), left foot; L84 Corns and callosities; M21.41 Flat foot [pes planus] (acquired), right foot; M21.42 Flat foot [pes planus] (acquired), left foot | CPT/HCPCS: 99203 ==

== ENCOUNTER 2024-01-20 13:44 | Outpatient (CLI) | payer OTHER, SELFPAY ==
--- NOTE | 2024-01-20 13:50 | US_ITS ---
WS: [id number] TESTICULAR ULTRASOUND HISTORY: EPIDIDYMAL CYST/EPIDIDYMAL PAIN COMPARISON: 01/01/2023 TECHNIQUE: Real-time and color Doppler imaging or utilized to perform a testicular ultrasound. Right testicle: 5.3 cm x 2.8 cm x 3.5 cm. Normal size and echogenicity. No mass or torsion. Normal color Doppler is present throughout. Systolic and diastolic velocities are both present. Small simple hydrocele. Right epididymis: Normal epididymis with no increased vascularity. Left testicle: 4.7 cm x 2.6 cm x 3.2 cm. Normal size and echogenicity. No mass or torsion. Normal color Doppler is present throughout. Systolic and diastolic velocities are both present. No significant hydrocele. Left epididymis: LEFT spermatocele 2.2 x 2.0 x 2.3 cm. Similar to the prior exam. US/US scrotum [id number] IMPRESSION: 1. Stable LEFT spermatocele since 01/01/2023. 2. No testicular mass or torsion. 3. No epididymitis.
== END 2024-01-20 13:45 | disposition home or self-care (01) ==
LOC: RAD 13:45
PROVIDERS: PCP Emergency Medicine Emergency Medical Services; Visit Provider Nurse Practitioner Family
DX: N50.3 Cyst of epididymis (principal); N43.41 Spermatocele of epididymis, single; N50.819 Testicular pain, unspecified
CPT/HCPCS: 76870

== ENCOUNTER → 2024-03-02 11:22 | Outpatient (BNVA) | payer OTHER, SELFPAY | PROVIDERS: PCP Emergency Medicine Emergency Medical Services; Visit Provider Nurse Practitioner Family | DX: L57.0 Actinic keratosis (principal); Z85.828 Personal history of other malignant neoplasm of skin; D22.4 Melanocytic nevi of scalp and neck; L57.8 Other skin changes due to chronic exposure to nonionizing radiation; L81.4 Other melanin hyperpigmentation; L91.0 Hypertrophic scar | CPT/HCPCS: 17004; 99213 ==

== ENCOUNTER → 2024-09-04 08:41 | Outpatient (BNVA) | payer OTHER, SELFPAY | PROVIDERS: PCP Emergency Medicine Emergency Medical Services; Visit Provider Nurse Practitioner Family | DX: D22.4 Melanocytic nevi of scalp and neck (principal); L57.8 Other skin changes due to chronic exposure to nonionizing radiation; L81.4 Other melanin hyperpigmentation; L91.0 Hypertrophic scar; L21.8 Other seborrheic dermatitis; Z08 Encounter for follow-up examination after completed treatment for malignant neoplasm; Z85.828 Personal history of other malignant neoplasm of skin; L57.0 Actinic keratosis | CPT/HCPCS: 17000; 99214 ==

== ENCOUNTER 2025-01-10 09:06 | Outpatient (CLI) | payer OTHER, SELFPAY | END 2025-01-10 09:07 | disposition home or self-care (01) | LOC: LAB 09:10 | PROVIDERS: PCP Nurse Practitioner Family; Visit Provider Urology | DX: R97.20 Elevated prostate specific antigen [PSA] (principal) | CPT/HCPCS: 36415; 84153 ==

== ENCOUNTER 2025-02-07 05:30 | Emergency (ER) | payer OTHER, MEDICARE, SELFPAY ==
--- OUTSIDE RECORDS SUMMARY | 2024-07-26 12:00 | XMS_ITS ---
Author Organization [facility] Address [address] [place] [address] Care Team Providers Care Manager Of Broadcast Content Name Role Phone [facility] Lorenzo RUSHING Primary Care Provider Un available BANDAR HOPPER Unavailable [phone] Ac Calderón Unavailable Unavailable RANDOLPH VINCENT Unavailable [phone] REASON FOR VISIT 6 mo w/ fr/pvr/psa Encounters Encounter Location Date Provider Diagnosis [facility] [address] [place] [address] 07/26/2024 RANDOLPH VINCENT Plan Of Treatment Next Appt Details Provider Name:RANDOLPH Salinas, 02/07/2025 11:00:00 AM, [address] [place], [address], Progress Notes * Dmitri COLLAZOOB:1960 (64 yo M)Acc No.[id number]:07/26/2024 Progress Notes Patient: Randolph DODD Provider: Edelmira Vincent MD :1960 A ge:64 Y S ex:Male Date:07/26/2024 [place] [facility] [id number] Pcp:Lorenzo Gavin DO Subjective: * Chief Complaints: * 1 . 6 mo w/ fr/pvr/psa. * Medical History: Objective: * Vitals: Assessment: Plan: * Treatment: * Billing Information: * Visit Code: * Procedure Codes: * Electronic signature of ARIANNA VINCENT MD on 02/07/2025 at 05:39 AM CDT Sign off status: Pending * Provider: Edelmira Vincent MD Date: 1 09/26/2023 Generated for Jaqui mathews/Wally/Jennifer on: 0 02/07/2025 05:39 AM CDT
--- OUTSIDE RECORDS SUMMARY | 2024-09-07 03:30 | XMS_ITS | Encounter Summary ---
Author Name [facility] Organization [facility] [place] Address [address] [place] [address] Care Team Providers Care Cotton Tier Name Role Phone PEGGY BALTAZAR Primary Care Provider Unavailabl e Insurance Providers: All historical and current Section Date Range: From patient's date of to the date document was created. This section includes the names of all active insurance providers for the patient. Insurance Provider Type of Coverage Plan Name Start of Policy Coverage End of Policy Coverage Group Number Member ID Insurance Provider's Telephone Number Policy Ervin's Name Patient's Relationship to Policy Ervin MEDICARE (WNR) MEDICARE (M) PART B Apr 16, 2023 PART B [id number] [phone] JOSE HUGGINS PATIENT MEDICARE (WNR) MEDICARE (M) PART A Apr 16, 2023 PART A [id number] [phone] JOSE HUGGINS PATIENT -FO R-LIFE [place] [facility] FOR LIFE WNR Apr 16, 2023 FOR LIFE [id number] [phone] JOSE HUGGINS PATIENT Selected Encounter This section includes the information on record at [place] for the Encounter. Date/Time Encounter Type Encounter Description Reason Provider Source Sep 07, 2024 08:30 AM OFFICE O/P EST MOD 30 MIN PRIMARY CARE/MEDICINE ICD-10-CM Z00.01 Encounter for general adult medical exam w abnormal findings PEGGY BALTAZAR Benjamin Encounter Template Text not used by [place] Assessments - Encounter Diagnoses This section includes the primary and secondary diagnoses documented for the Encounter. Date/Time Primary/Secondary Diagnosis Diagnosis Name Provider Source Sep 07, 2024 10:11 AM PRIMARY Encounter for general adult medical exam w abnormal findings [facility] Sep 07, 2024 10:11 AM SECONDARY Dizziness and giddiness [facility] Sep 07, 2024 10:11 AM SECONDARY Elevated blood-pressure reading, w/o diagnosis of htn [facility] Sep 07, 2024 10:11 AM SECONDARY Hyperlipidemia, unspecified [facility] Sep 07, 2024 10:11 AM SECONDARY Sleep apnea, unspecified PEGGY BALTAZAR [facility] Plan of Treatment: Future Appointments (+ 6 months) and Future Tests (+/- 45 days) The Plan of Treatment section includes future care activities for the patient from all [place] treatmentfacilities. This section includes future appointments and future orders which are active, pending or scheduled. Future Appointments This section includes appointments that were scheduled to occur 6 months from the date of the Encounter, up to a maximum of 20 appointments. The data comes from all [place] treatment facilities. Appointment Date/Time Appointment Type Appointme nt Facility Name Sep 08, 2024 03:30 PM AMBULATORY - NONE [place] [facility] Sep 15, 2024 09:45 AM [facility] - [facility] Oct 13, 2024 03:30 PM [facility]BUL[facility]ORY - MEDIC[place] [facility] Oct 23, 2024 03:00 PM [facility] [place] Nov 01, 2024 03:00 PM AMBULATORY - NONE [place] [facility] Nov 30, 2024 10:25 AM AMBULATORY - MEDICINE [place] [facility] Dec 01, 2024 03:30 PM AMBULATORY - MEDICINE [place] [facility] Dec 08, 2024 11:00 AM [facility] [place] [facility] December 15, 2024 03:00 PM [facility] [place] [facility] January 05, 2025 10:00 AM AMBULATORY - MEDICINE [facility] January 12, 2025 03:00 PM AMBULATORY - MEDICINE [facility] Feb 07, 2025 11:00 AM AMBULATORY - MEDICINE [facility] Active, Pending, and Scheduled Orders This section includes a listing of several types of active, pending, and scheduled orders, including clinic medications orders, diagnostic test orders, procedure orders and consult orders; where the start date of the order is 45 days before the date of the Encounter or 45 days after the date of theEncounter. The data comes from all [place] treatment facilities. Test Date/Time Test Type Test Details Facility Name Sep 07, 2024 09:19 AM Laboratory - Chemi stry Order ANCILLARY STREP (PB) THROAT PHARYNX SP [facility] Lab Results: +/- 30 days of the encounter This section includes the Chemistry and Hematology Lab Results on record with [place] for the patient. Radiology Reports and Pathology Reports are provided separately, in subsequent sections. Lab Results This section contains the Chemistry/Hematology Results that were resulted 30 days before or 30 daysafter the date of the Encounter. Date/Time Source Result Type Result - Unit Interpretation Reference Range Specimen Type Comment Sep 07, 2024 09:23 AM [facility] ANCILLARY STREP (PB) SWAB Specimen Type: SWAB Comment: Test performed by: Gopal Gordon [id number] Meter #: [id number] Ordering Provider: PEGGY BALTAZAR Report Released Date/Time: Sep 07, 2024 09:30 AM Reporting Lab: [facility] [address] [facility] [address] Performing Lab: [facility] [address] [facility] [address] ANCILLARY STREP (PB) negative Sep 06, 2024 10:47 AM [facility] URINALYSIS (STL-PB) URINE Specimen Type: URIN E No comment entered. Ordering Provider: PEGGY BALTAZAR Report Released Date/Time: Sep 06, 2024 10:46 AM Reporting Lab: [place] [facility] [address] [place] [address] Performing Lab: [place] [facility] [address] [place] [address] URINE COLOR Yellow Yellow U.BILIRUBIN NEGATIVE mg/dL Negative U.PH 6.0 5.0-8.0 URINE WBC/HPF 2 /[HPF] 0-5 URINE RBC/HPF 2 /[HPF] 0-5 APPEARANCE TURBID H Clear U.NITRITE NEGATIVE mg/dL Negative MUCUS FEW /[LPF] H Negative-Rare URN.GLUCOSE NORMAL mg/dL Negative URN.PROTEIN NEGATIVE mg/dL URN.UROBILINOGEN NORMAL mg/dL Normal URN.BLOOD NEGATIVE mg/dL Negative-Trace URN.KETONES NEGATIVE mg/dL Negative-Trac e URN.LEUK.EST. NEGATIVE Negative-Trace URN.SPECIFIC GRAVITY 1.029 1.005-1.029 Sep 06, 2024 08:17 AM [facility] B12 SERUM Specimen Type: SERUM No comment entered. Ordering Provider: PEGGY BALTAZAR Report Released Date/Time: Aug 28, 2024 05:26 PM Reporting Lab: [place] [facility] [address] [place] [address] Performing Lab: [place] [facility] [address] [place] [id number] B12 447 pg/mL 213-816 Sep 06, 2024 08:17 AM [facility] FOLATE (PB) SERUM Specimen Typ e: SERUM No comment entered. Ordering Provider: PEGGY BALTAZAR Report Released Date/Time: Aug 28, 2024 05:26 PM Reporting Lab: [place] [facility] [address] [place] [address] Performing Lab: [place] [facility] [address] [place] [address] FOLATE (PB) 12.3 ng/mL 7-20 Sep 06, 2024 08:17 AM [facility] COMPREHENSIVE METABOLIC PANEL PLASMA Specimen Type: PLASMA No comment entered. Ordering Provider: PEGGY BALTAZAR Report Released Date/Time: Aug 28, 2024 05:26 PM Reporting Lab: [place] [facility] [address] [place] [address] Performing Lab: [place] [facility] [address] [place] [address] CREATININE 0.90 mg/dL 0.7-1.3 UREA NITROGEN 17 mg/dL 9-25 GLUCOSE 108 mg/dL H 72-99 SODIUM 141 meq/L 136-145 POTASSIUM 3.8 meq/L 3.5-5 CHLORIDE 107 meq/L 98-107 CARBON DIOXIDE 24 meq/L 22-31 CALCIUM 8.9 mg/dL 8.4-10.4 PROTEIN 7.2 g/dL 6-8.6 ALBUMIN 4.2 g/dL 3.4-5 TOTAL BILIRUBIN 0.8 mg/dL 0.2-1.2 ALKALINE PHOSPHATASE 55 U/L 40-150 AST/SGOT 16 U/L 5-34 ALT/SGPT 32 U/L 8-40 EGFR (CKD-EPI 2020) 94 Sep 06, 2024 08:17 AM [facility] HGA1C BLOOD Specimen Type: BLOOD No comment entered. Ordering Provider: PEGGY BALTAZAR Report Released Date/Time: Aug 28, 2024 05:26 PM Reporting Lab: [place] [facility] [address] [place] [address] Performing Lab: [place] [facility] [address] [place] [address] HGA1C 5.9 4.0-6.0 Sep 06, 2024 08:17 AM [facility] CBC BLOOD Specimen Type: BLOOD No comment entered. Ordering Provider: PEGGY BALTAZAR Report Released Date/Time: Aug 28, 2024 05:26 PM Reporting Lab: [place] [facility] [address] [place] [address] Performing Lab: [place] [facility] [address] [place] [address] WBC 6.2 10*3/uL 3.6-11.2 RBC 5.58 10*6/uL 4.10-5.70 HGB 15.5 g/dL 13.1-16.8 HCT 46.8 38.2-48.4 MCV 83.9 fL 80.0-100.0 MCH 27.8 pg 27.0-34.0 MCHC 33.1 g/dL 33.0-36.0 PLT 199 10*3/uL 150-400 MPV 12.5 fL H 7.5-11.2 RDW 13.2 11.8-15.1 LYMPHOCYTES, AUTO % 23.7 MONOCYTES, AUTO % 8.7 NEUTROPHILS, AUTO % 65.4 EOSINOPHILS, AUTO % 1.0 BASOPHILS, AUTO % 0.6 LYMPHOCYTES, ABSOLUTE 1.48 10*3/uL 0.77- 4.50 MONOCYTES, ABSOLUTE 0.54 10*3/uL 0.19-0. 8 NEUTROPHILS, ABSOLUTE 4.08 10*3/uL 2.10- 8.00 EOSINOPHILS, ABSOLUTE 0.06 10*3/uL 0.00- 0.60 BASOPHILS, ABSOLUTE 0.04 10*3/uL 0.00-0. 20 IMMATURE GRANS, AUTO % 0.6 IMMATURE GRANS, AUTO ABS 0.04 10*3/uL 0. 00-0.05 Sep 06, 2024 08:17 AM [facility] VITAMIN D, 25-HYDROXY SERUM Specimen Type: SE RUM No comment entered. Ordering Provider: PEGGY BALTAZAR Report Released Date/Time: Aug 28, 2024 05:26 PM Reporting Lab: [place] [facility] [address] [place] [address] Performing Lab: [place] [facility] [address] [place] [id number] VITAMIN D, 25-HYDROXY 31.5 ng/mL 30-96 Sep 06, 2024 08:17 AM [facility] CHOLESTEROL PANEL (PB) PLASMA Specimen Type: P LASMA No comment entered. Ordering Provider: PEGGY BALTAZAR Report Released Date/Time: Aug 28, 2024 05:26 PM Reporting Lab: [place] [facility] [address] [place] [address] Performing Lab: [place] [facility] [address] [place] [address] CHOLESTEROL 166 mg/dL 0-200 TRIGLYCERIDE 220 mg/dL H 0-150 CALCULATED LDL 88.0 mg/dL HDL(New) 34.0 mg/dL L >40 HDL % OF TOTAL CHOLESTEROL (PB) 20.5 >25 Sep 06, 2024 08:17 AM [facility] PROST. SPECIFIC AG.(PB-STL) SERUM Specimen Ty pe: SERUM No comment entered. Ordering Provider: PEGGY BALTAZAR Report Released Date/Time: Aug 28, 2024 05:26 PM Reporting Lab: [place] [facility] [address] [place] [address] Performing Lab: [place] [facility] [address] [place] [address] PROST. SPECIFIC AG.(PB-STL) 3.06 ng/mL 0 -4 Sep 06, 2024 08:17 AM [facility] TSH (MA-PB) SERUM Specimen Typ e: SERUM No comment entered. Ordering Provider: PEGGY BALTAZAR Report Released Date/Time: Aug 28, 2024 05:26 PM Reporting Lab: [place] [facility] [address] [place] [address] Performing Lab: [place] [facility] [address] [place] [address] TSH 2.681 u[IU]/mL 0.47-5 Vital Signs: All taken on the encounter date This section contains inpatient and outpatient Vital Signs collected on the date of the Encounter. Date/Time Temperature Pulse Blood Pressure Respiratory Rate SP02 Pain Height Weight Body Mass Index Source Sep 07, 2024 08:38 AM 97.6 56 143/81 20 97 6 214.8 30 [facility] Social History: Smoking Status (Most current) and Tobacco Use (All prior to encounter date) This section includes the most current, and the historical, smoking and tobacco- related health factors from the [place] facility where the Encounter took place. Current Smoking Status This section includes the most current smoking, or tobacco-related health factor, from the [place] facility where the Encounter took place. Date/Time Current Smoking Status Comment Facil ity Sep 08, 2023 08:30 AM VA-TOBACCO FORMER USER [facility] Tobacco Use History This section includes a history of the smoking, or tobacco-related health factors, that were collected on or before the date of the Encounter. The data comes from the [place] facility where the Encounter took place. Date/Time Smoking Status/Tobacco Use Comment F acility Sep 08, 2023 08:30 AM VA-TOBACCO QUIT < 1 YEAR [facility] Sep 08, 2022 08:30 AM VA-TOBACCO USE > 1 5 LESS THAN 30 YEARS [facility] Sep 08, 2022 08:30 AM VA-TOBACCO USE ADVICE [facility] Sep 08, 2022 08:30 AM VA-TOBACCO USE INFORMATION ASSISTANT NO [facility] Sep 08, 2022 08:30 AM VA-TOBACCO USE MED NO [facility] Sep 08, 2022 08:30 AM VA-TOBACCO USE WI 30 MIN OF WAKE UP [facility] Sep 08, 2022 08:30 AM VA-TOBACCO USER EVERY DAY [facility] Sep 08, 2021 08:30 AM VA-TOBACCO NEVER USED [facility] Sep 10, 2020 10:00 AM VA-TOBACCO FORMER USER [facility] Sep 10, 2020 10:00 AM VA-TOBACCO QUIT 5 TO < 15 YRS [facility] Sep 07, 2019 10:32 AM VA-TOBACCO FORMER USER [facility] Sep 07, 2019 10:32 AM VA-TOBACCO QUIT 1 TO < 5 YRS [facility] Encounter Notes: All associated encounter notes This section contains the clinical notes associated to the Encounter. 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 [place] states that he has been doing Madhu maneuver at home has found it on the internet and states that he is doing much better since doing the maneuver. I told him that if that maneuver is helping then maybe he has BPPV we talked about it and hat the treatment was what he was doing. wants to also start using CPAP again, consult placed for new CPAP set up to possibly try a nose pillow or nose mask. was in the [place] between August 1977-1996. 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 is also having some sinus pressure he has some bulging to tympanic membranes no redness he is complaining of concern chronic rhinitis sinusitis symptoms will send medication to him in the mail and we will also do a dietitian consult for his elevated triglycerides he is not wanting to take any additional meds. He would like to try doing some cardio adding some fiber in his diet and doing the dietitian consult before adding an additional pill to his medications. Allergies: Patient has answered NKA REVIEW OF SYSTEMS: HEENT: No visual or auditory symptoms. RESPIRATORY: No shortness of breath, cough or sputum. CARDIOVASCULAR: No chest pain or palpitation. GI: No abdominal pain, nausea, vomiting or bowel changes. MUSCULOSKELETAL: No muscle aches or pains. SKIN: No new rashes, no unhealing lesions, no moles. : No urinary symptoms. PSYCH: Denies being depressed or anxious. VITALS: Temperature: 97.6 F [36.4 C] (09/07/2024 08:38) Respiratory Rate: 20 (09/07/2024 08:38) Pulse Rate: 56 (09/07/2024 08:38) Blood Pressure: 143/81 (09/07/2024 08:38) HT: 71 in [180.3 cm] (09/07/2019 10:50) WT: 214.8 lb [97.43 kg] (09/07/2024 08:38) BMI: 30.0 97% (09/07/2024 08:38) PHYSICAL EXAM: General: NAD noted, A&Ox3, pleasant, appears stated age HEENT: NCAT, TM's clear, nares and oropharynx clear Neck: Supple with normal active ROM, without any lymphadenopathy Heart: RRR, no murmur, clicks, or rub Resp: Lungs CTA bilaterally, respirations even and unlabored Abdomen: Soft, non-distended, non-tender Ext: No clubbing, cyanosis, edema or obvious deformity Neuro: Grossly intact Psych: Affect normal, answers questions appropriately throughout visit DIAGNOSTIC STUDIES: Labs Performed/Reviewed at Today's Visit: review labs Radiology/Imaging Performed/Reviewed at Today's Visit: None Reason for studies: On the following Active Medications: Active Outpatient Medications (including Supplies): Active Outpatient Medications Status 1) CYCLOBENZAPRINE HCL 10MG TAB TAKE ONE TABLET BY MOUTH THREE ACTIVE TIMES A DAY NEEDED MAY CAUSE DROWSINESS. DO NOT DRINK ALCOHOL WHILE TAKING THIS MEDICATION. Indication: FOR MUSCLE SPASM 2) FINASTERIDE 5MG TAB TAKE ONE TABLET BY MOUTH ONCE A DAY ACTIVE SWALLOW WHOLE, DO NOT CRUSH, SPLIT, OR CHEW. Indication: FOR BENIGN PROSTATIC HYPERPLASIA 3) KETOCONAZOLE 2% CREAM APPLY LIGHTLY TO AFFECTED AREA(S) ONCE ACTIVE A DAY TO AREAS OF SCALING ON FACE FOR 2 WEEKS THEN NEEDED FOR RECURRENCE 4) KETOCONAZOLE 2% SHAMPOO USE SHAMPOO TO AFFECTED AREA(S) ACTIVE DIRECTED TWO TO THREE TIMES A WEEK TO SCALP AND CLEMENT. LET SIT FOR 5 MINUTES THEN RINSE. (EXTERNAL USE ONLY) (SHAKE WELL) 5) MUPIROCIN 2% OINT APPLY SPARINGLY TO AFFECTED AREA(S) TWICE ACTIVE A DAY EXTERNAL USE ONLY. Indication: FOR BACTERIAL INFECTION 6) ROSUVASTATIN CA 40MG TAB TAKE ONE-HALF TABLET BY MOUTH EVERY ACTIVE EVENING TO LOWER CHOLESTEROL Indication: FOR HIGH CHOLESTEROL 7) TAMSULOSIN HCL 0.4MG CAP TAKE ONE CAPSULE BY MOUTH EVERY ACTIVE EVENING APPROXIMATELY 30 MINUTES AFTER THE SAME MEAL EACH DAY Indication: FOR BENIGN PROSTATIC HYPERPLASIA 8) TERBINAFINE HCL 250MG TAB TAKE ONE TABLET BY MOUTH ONCE A ACTIVE DAY FOR Indication: TOENAIL FUNGUS Active Non-VA Medications Status 1) Non-VA CHOLECALCIF 25MCG (D3-1,000UNIT) TAB 25MCG BY MOUTH ACTIVE ONCE A DAY 2) Non-VA FISH OIL 1000MG (500MG DHA/EPA) CAP 1000MG BY MOUTH ACTIVE TWICE A DAY 10 Total Medications 1) Benign Prostatic Hypertrophy With Outflow Obstruction (SCT [id number]) 2) Panic attack 3) H/O: vasectomy 4) Neuralgia of left sciatic nerve 5) Elevated PSA 6) Sleep Apnea (SCT [id number]) 7) HLD - Hyperlipidemia ===== MEDICATION RECONCILIATION: ACTIVE/ OUTPATIENT MEDICATIONS: MRT1 - Med Reconciliation INCLUDED IN THIS LIST: Alphabetical list of active outpatient prescriptions dispensed from this [facility] (local) and dispensed from another [facility] or [facility] facility (remote) as well as inpatient orders (local pending and active), local clinic medications, locally documented non-VA medications, and local prescriptions that have or been discontinued in the past 90 days. Non-VA Meds Last Documented On: Sep 08, 2023 NOTE The display of VA prescriptions dispensed from another VA or [facility] facility (remote) is limited to active outpatient prescription entries matched to National Drug File at the originating site and may not include some items such as investigational drugs, compounds, etc. NOT INCLUDED IN THIS LIST: Medications self-entered by the patient into personal health records (i.e. Doctor kinetic) are NOT included in this list. Non-VA medications documented outside this [facility], remote inpatient orders (regardless of status) and remote clinic medications are NOT included in this list. The patient and provider must always discuss medications the patient is taking, regardless of where the medication was dispensed or obtained. Non-VA CHOLECALCIF 25MCG (D3-1,000UNIT) TAB TAKE ONE TABLET BY MOUTH ONCE A DAY VA RX: Patient wants to buy from Non-VA pharmacy OUTPT CYCLOBENZAPRINE HCL 10MG TAB (Status = Active) TAKE ONE TABLET BY MOUTH THREE TIMES A DAY NEEDED FOR MUSCLE SPASM MAY CAUSE DROWSINESS. DO NOT DRINK ALCOHOL WHILE TAKING THIS MEDICATION. Rx# [id number] Last Released: 12/22/23 Qty/Days Supply: 60 Rx Expiration Date: 12/20/24 Refills Remainin Indication: FOR MUSCLE SPASM OUTPT FINASTERIDE 5MG TAB (Status = Active) TAKE ONE TABLET BY MOUTH ONCE A DAY FOR BENIGN PROSTATIC HYPERPLASIA SWALLOW WHOLE, DO NOT CRUSH, SPLIT, OR CHEW. Rx# [id number] Last Released: 07/18/24 Qty/Days Supply: 90 Rx Expiration Date: 10/14/24 Refills Remainin Indication: FOR BENIGN PROSTATIC HYPERPLASIA Non-VA FISH OIL 1000MG (500MG DHA/EPA) CAP TAKE 1 CAPSULE BY MOUTH TWICE A DAY VA RX: Non-VA Med for Outside Prescription OUTPT KETOCONAZOLE 2% CREAM (Status = Active) APPLY LIGHTLY TO AFFECTED AREA(S) ONCE A DAY TO AREAS OF SCALING ON FACE FOR 2 WEEKS THEN NEEDED FOR RECURRENCE Rx# [id number] Last Released: Qt Supply: Rx Expiration Date: 09/05/25 Refills Remainin OUTPT KETOCONAZOLE 2% SHAMPOO (Status = Active) USE SHAMPOO TO AFFECTED AREA(S) DIRECTED TWO TO THREE TIMES A WEEK TO SCALP AND CLEMENT. LET SIT FOR 5 MINUTES THEN RINSE. (EXTERNAL USE ONLY) (SHAKE WELL) Rx# [id number] Last Released: Qty/ Supply: Rx Expiration Date: 09/05/25 Refills Remainin OUTPT MUPIROCIN 2% OINT (Status = Active) APPLY SPARINGLY TO AFFECTED AREA(S) TWICE A DAY FOR BACTERIAL INFECTION EXTERNAL USE ONLY. Rx# [id number] Last Released: 10/22/23 Qty/Days Supply: 06/06 Rx Expiration Date: 10/21/24 Refills Remainin Indication: FOR BACTERIAL INFECTION OUTPT ROSUVASTATIN CA 40MG TAB (Status = Active) TAKE ONE-HALF TABLET BY MOUTH EVERY EVENING FOR HIGH CHOLESTEROL TO LOWER CHOLESTEROL Rx# [id number] Last Released: 07/18/24 Qty/Days Supply: Rx Expiration Date: 09/08/24 Refills Remainin Indication: FOR HIGH CHOLESTEROL OUTPT TAMSULOSIN HCL 0.4MG CAP (Status = Active) TAKE ONE CAPSULE BY MOUTH EVERY EVENING FOR BENIGN PROSTATIC HYPERPLASIA APPROXIMATELY 30 MINUTES AFTER THE SAME MEAL EACH DAY Rx# [id number] Last Released: 07/21/24 Qty/Days Supply: Rx Expiration Date: 07/20/25 Refills Remainin Indication: FOR BENIGN PROSTATIC HYPERPLASIA OUTPT TERBINAFINE HCL 250MG TAB (Status = Active) TAKE ONE TABLET BY MOUTH ONCE A DAY TOENAIL FUNGUS FOR TOENAIL FUNGUS Rx# [id number] Last Released: 10/28/23 Qty/Days Supply: Rx Expiration Date: 10/21/24 Refills Remainin Indication: TOENAIL FUNGUS SUPPLIES PHARMACY TERMS AND POSSIBLE PATIENT ACTIONS INPT = UT inpatient order IV = UT intravenous medication OUTPT = [facility] outpatient prescription PHARMACY POSSIBLE PATIENT TERMS EXPLANATION ACTIONS -------- ---- ACTIVE A prescription that can be If you have refills, filled at the local VA pharmacy. you may request a refill of this prescription from your VA pharmacy. CLINIC A medication you received during If you have questions a visit to a VA clinic or about this medication emergency department. contact your VA healthcare team. DISCONTINUED A prescription your provider has Contact your VA stopped. It is no longer healthcare team if you available to be sent to you or need more of this picked up at the [facility] pharmacy medication. window. A prescription which is too old Contact your VA to fill. This does not refer to healthcare team if you the expiration date of the need more of this medication in the container. medication. NON-VA A medication that came from If this medication someplace other than a VA information is pharmacy. This may be a incorrect or out of prescription from either the VA date, please tell your or non-VA providers that was VA healthcare team. filled outside the VA. Or, it may be an [id number] (OTC), herbal, dietary supplements or sample medication. ON HOLD An active prescription that will Contact your VA not be filled until pharmacy pharmacy when you need resolves the issue. more of this medication. PARKED An active prescription that will Contact your VA not be filled until the patient pharmacy when you need requests it. this medication. PENDING This prescription order has been If you have been sent to the pharmacy for review instructed to start and is not ready yet. this medication now, contact your VA pharmacy. SUSPENDED An active prescription that is Contact your [facility] not scheduled to be filled yet. pharmacy if you need You should receive it before this medication now. you run out. DISCONTINUED: none ADDED/CHANGES: none NON-VA MEDICATIONS NOT LISTED ABOVE (List, including Herbals and OTC): Reviewed with patient/family members. Copy given to patient. yes Patient verbalized understanding? ===== ASSESSMENT/IMPRESSION: Annual adult well exam -current Obstructive sleep apnea -current Hyperlipidemia mixed -current Elevated blood pressure -current BPPV -current PLAN OF CARE: Annual adult well exam plan to go over labs drawn a couple days ago reviewed Obstructive sleep apnea plan to consult for respiratory for new CPAP machine ordered today Hyperlipidemia mixed, plan to consult dietitian. Plan to increase cardio and monitor dietary modifications as well as adding fiber to diet Elevated blood pressure plan to monitor blood pressure at home will recheck blood pressure with a nurse appointment in 1 weeks BPPV plan to continue the exercises per his desire from you tube(Madhu maneuver) Follow-up: _12_ months and/or as needed and keep regularly scheduled appointment. Discussed diet and exercise as relevant to patient conditions. Patient is advised this primary care clinic has open access and he can make a same day appointment anytime a problem/concern arises. Patient further advised he can be seen on a walk-in basis as needed. Patient is provided clinic contact information. Treatment plan as noted above and the After Visit Summary was reviewed with ; opportunity provided to report concerns and ask question regarding aspects of care or treatment or services; concurrence reached and verbalized understanding. Discussed with patient that in the event of community imaging/testing being ordered in the future, once the imaging testing has been completed, please notify PACT of within 1 week by a [facility] PACT member; this is due to intermittent lapses in notification of imaging completion within CPRS. All questions answered; agrees to plan of care. Follow up as listed above, annually, and as needed. Keep all completion at outside facility if not called with results appointments. Medications Reconciled. Time spent 30 minutes. Peggy [facility] CB APR Float /ashley/ ARELY Morin, MSN, [facility] Signed: 09/07/2024 10:13 09/07/2024 ADDENDUM STATUS: COMPLETED Notified [place] that Strep test was negative. voiced understanding and all questions and concerns addressed at this time. /ashley/ Evan Herron RN BSN [facility] Signed: 09/07/2024 15:23 PEGGY BALTAZAR [facility] Sep 07, 2024 08:39 AM PRIMARY CARE NURSI BG NOTE: LOCAL TITLE: PRIMARY CARE NURSING PROGRESS NOTE (TEXT) NURSING P STANDARD TITLE: PRIMARY CARE NURSING NOTE DATE OF NOTE: SEP 07, 2024@08:39 ENTRY DATE: SEP 07, 2024@08:39:20 AUTHOR: EVAN HERRONIGNER: URGENCY: STATUS: COMPLETED Established Patient ANNALEE HUGGINS IS A 64 YEAR OLD MALE BEING SEEN IN CLINIC SEP 07, 2024. = = REASON FOR VISIT: Annual visit and lab review. reports feeling dizzy and pressure behind eye 3 weeks ago. Are you receiving care any where other than the [facility]? No HEALTH AND SURGICAL HISTORY: No new surgeries Does patient report using home oxygen? No CURRENT ACTIVE MEDICATIONS FOR REVIEW: Allergies/ADRs (Tool #5) FACILITY ALLERGY/ADR -------- No Remote Allergy/ADR Data available for this patient [facility] No Known Allergies Med. Reconciliation (Tool #1) INCLUDED IN THIS LIST: Alphabetical list of active outpatient prescriptions dispensed from this [facility] (local) and dispensed from another VA or [facility]D facility (remote) as well as inpatient orders (local pending and active), local clinic medications, locally documented non-VA medications, and local prescriptions that have or been discontinued in the past 90 days. Non-VA Meds Last Documented On: Sep 08, 2023 NOTE The display of VA prescriptions dispensed from another VA or DoD facility (remote) is limited to active outpatient prescription entries matched to National Drug File at the originating site and may not include some items such as investigational drugs, compounds, etc. NOT INCLUDED IN THIS LIST: Medications self-entered by the patient into personal health records (i.e. Doctor kinetic) are NOT included in this list. Non-VA medications documented outside this VA, remote inpatient orders (regardless of status) and remote clinic medications are NOT included in this list. The patient and provider must always discuss medications the patient is taking, regardless of where the medication was dispensed or obtained. Non-VA CHOLECALCIF 25MCG (D3-1,000UNIT) TAB TAKE ONE TABLET BY MOUTH ONCE A DAY VA RX: Patient wants to buy from Non-VA pharmacy OUTPT CYCLOBENZAPRINE HCL 10MG TAB (Status = Active) TAKE ONE TABLET BY MOUTH THREE TIMES A DAY NEEDED FOR MUSCLE SPASM MAY CAUSE DROWSINESS. DO NOT DRINK ALCOHOL WHILE TAKING THIS MEDICATION. Rx# [id number] Last Released: 12/22/23 Qty/Days Supply: Rx Expiration Date: 12/20/24 Refills Remainin Indication: FOR MUSCLE SPASM OUTPT FINASTERIDE 5MG TAB (Status = Active) TAKE ONE TABLET BY MOUTH ONCE A DAY FOR BENIGN PROSTATIC HYPERPLASIA SWALLOW WHOLE, DO NOT CRUSH, SPLIT, OR CHEW. Rx# [id number] Last Released: 07/18/24 Qty/Days Supply: 90 Rx Expiration Date: 10/14/24 Refills Remainin Indication: FOR BENIGN PROSTATIC HYPERPLASIA Non-VA FISH OIL 1000MG (500MG DHA/EPA) CAP TAKE 1 CAPSULE BY MOUTH TWICE A DAY VA RX: Non-VA Med for Outside Prescription OUTPT KETOCONAZOLE 2% CREAM (Status = Active) APPLY LIGHTLY TO AFFECTED AREA(S) ONCE A DAY TO AREAS OF SCALING ON FACE FOR 2 WEEKS THEN NEEDED FOR RECURRENCE Rx# [id number] Last Released: Qt Supply: Rx Expiration Date: 09/05/25 Refills Remainin OUTPT KETOCONAZOLE 2% SHAMPOO (Status = Active) USE SHAMPOO TO AFFECTED AREA(S) DIRECTED TWO TO THREE TIMES A WEEK TO SCALP AND CLEMENT. LET SIT FOR 5 MINUTES THEN RINSE. (EXTERNAL USE ONLY) (SHAKE WELL) Rx# [id number] Last Released: QtDays Supply: 12030 Rx Expiration Date: 09/05/25 Refills Remainin OUTPT MUPIROCIN 2% OINT (Status = Active) APPLY SPARINGLY TO AFFECTED AREA(S) TWICE A DAY FOR BACTERIAL INFECTION EXTERNAL USE ONLY. Rx# [id number] Last Released: 10/22/23 Qty/Days Supply: 06/06 Rx Expiration Date: 10/21/24 Refills Remainin Indication: FOR BACTERIAL INFECTION OUTPT ROSUVASTATIN CA 40MG TAB (Status = Active) TAKE ONE-HALF TABLET BY MOUTH EVERY EVENING FOR HIGH CHOLESTEROL TO LOWER CHOLESTEROL Rx# [id number] Last Released: 07/18/24 Qty/Days Supply: Rx Expiration Date: 09/08/24 Refills Remainin Indication: FOR HIGH CHOLESTEROL OUTPT TAMSULOSIN HCL 0.4MG CAP (Status = Active) TAKE ONE CAPSULE BY MOUTH EVERY EVENING FOR BENIGN PROSTATIC HYPERPLASIA APPROXIMATELY 30 MINUTES AFTER THE SAME MEAL EACH DAY Rx# [id number] Last Released: 07/21/24 Qty/Days Supply: Rx Expiration Date: 07/20/25 Refills Remainin Indication: FOR BENIGN PROSTATIC HYPERPLASIA OUTPT TERBINAFINE HCL 250MG TAB (Status = Active) TAKE ONE TABLET BY MOUTH ONCE A DAY TOENAIL FUNGUS FOR TOENAIL FUNGUS Rx# [id number] Last Released: 10/28/23 Qty/Days Supply: Rx Expiration Date: 10/21/24 Refills Remainin Indication: TOENAIL FUNGUS SUPPLIES PHARMACY TERMS AND POSSIBLE PATIENT ACTIONS INPT = [facility] inpatient order IV = [facility] intravenous medication OUTPT = [place] outpatient prescription PHARMACY POSSIBLE PATIENT TERMS EXPLANATION ACTIONS -------- ---- ACTIVE A prescription that can be If you have refills, filled at the local [place] pharmacy. you may request a refill of this prescription from your VA pharmacy. CLINIC A medication you received during If you have questions a visit to a [place] clinic or about this medication emergency department. contact your [place] healthcare team. DISCONTINUED A prescription your provider has Contact your VA stopped. It is no longer healthcare team if you available to be sent to you or need more of this picked up at the [place] pharmacy medication. window. A prescription which is too old Contact your VA to fill. This does not refer to healthcare team if you the expiration date of the need more of this medication in the container. medication. NON-VA A medication that came from If this medication someplace other than a VA information is pharmacy. This may be a incorrect or out of prescription from either the VA date, please tell your or non VA providers that was VA healthcare team. filled outside the VA. Or, it may be an [id number] (OTC), herbal, dietary supplements or sample medication. ON HOLD An active prescription that will Contact your VA not be filled until pharmacy pharmacy when you need resolves the issue. more of this medication. PARKED An active prescription that will Contact your VA not be filled until the patient pharmacy when you need requests it. this medication. PENDING This prescription order has been If you have been sent to the pharmacy for review instructed to start and is not ready yet. this medication now, contact your VA pharmacy. SUSPENDED An active prescription that is Contact your [place] not scheduled to be filled yet. pharmacy if you need You should receive it before this medication now. you run out. Patient reports taking medications as ordered. IS PATIENT TAKING ANY OVER THE COUNTER MEDICATIONS, SUCH VITAMINS OR HERBAL SUPPLEMENTS, INCLUDING ANY MEDICATIONS PRESCRIBED BY ANOTHER PHYSICIAN? No ALLERGIES/ADVERSE REACTIONS: Patient has answered NKA Does patient have any new allergies to report since last visit? VITALS: TEMPERATURE: 97.6 F [36.4 C] (09/07/2024 08:38) BP: 143/81 (09/07/2024 08:38) RESP: 20 (09/07/2024 08:38) PULSE: 56 (09/07/2024 08:38) HT: 71 in [180.3 cm] (09/07/2019 10:50) WT: 214.8 lb [97.43 kg] (09/07/2024 08:38) BMI: 30.0 PAIN ASSESSMENT: (Most Recent Pain Score in Vitals Package: 6 (09/07/2024 08:38) ) The patient indicated that they and their close contacts have not traveled outside of the [place] in the past 21 days. The patient reports the following symptoms: No symptoms present The patient is not immunocompromised. The patient does not report having a history of Multi Drug Resistant Organism (MDRO) within the last five years. The patient does not report having been exposed to measles, chickenpox, or zoster in last 30 days. STRESS: Thank you for your service. Now let us serve you. At the [facility], we strive to provide you with exceptional health care that improves your health and well-being. Are you feeling sad, empty, or depressed? No Do you need to talk about things in your life that worry you or cause you stress? No Do you need to talk about personal problems, family problems, alcohol use, drug use, or mental or emotional illness? No SUICIDE SCREENING: The patient was asked, Over the past two weeks, how often have you been bothered by thoughts that you would be better off or of hurting yourself in some way? Not At All SPIRITUAL ASSESSMENT: Are there oriental orthodox practices or spiritual concerns you want the filter worker, your physician, and other health care team members to immediately know about? No Patient advised to call the clinic for any concerns, questions, or symptoms. Patient and/or caregiver verbalized understanding of plan of care. Suicide Screen - V: C-SSRS Screening [place] Suicide Severity Rating Scale (C-SSRS) screener 1. Over the past month, have you wished you were or wished you could go to sleep and not wake up? No 2. Over the past month, have you had any actual thoughts of killing yourself? No 3. Over the past month, have you been thinking about how you might do this? Response not required due to responses to other questions. 4. Over the past month, have you had these thoughts and had some intention of acting on them? Response not required due to responses to other questions. 5. Over the past month, have you started to work out or worked out the details of how to kill yourself? Response not required due to responses to other questions. 6. If yes, at any time in the past month did you intend to carry out this plan? Response not required due to responses to other questions. 7. In your lifetime, have you ever done anything, started to do anything, or prepared to do anything to end your life (for example, collected pills, obtained a gun, gave away valuables, went to the roof but didn't jump)? No 8. If YES, was this within the past 3 months? Response not required due to responses to other questions. Sexual Orientation - CP,L,N,P,PH,PS,S,U: The patient thinks of their sexual orientation as: Straight or Heterosexual PTSD Screening - V: PC-PTSD-5 A PTSD screening test (PC-PTSD-5) was negative (score=2). IN THE PAST MONTH, have you ever had any experience that was so frightening, horrible or traumatic. For example: A serious accident or fire a physical or sexual assault or abuse An earthquake or flood A war Seeing someone be killed or seriously injured Having a loved one through homicide or suicide 1. Have you ever experienced this kind of event? YES 2. Had nightmares about the event(s) or thought about the event(s) when you did not want to? YES 3. Tried hard not to think about the event(s) or went out of your way to avoid situations that reminded you of the event(s)? YES 4. Been constantly on guard, watchful, or easily startled? NO 5. [place] numb or detached from people, activities, or your surroundings? NO 6. [place] guilty or unable to stop blaming yourself or others for the event(s) or any problems the event(s) may have caused? NO COVID-19 Immunization - L,N,P,PH,U: Refused Moderna Monovalent COVID-19 vaccine Immunization: COVID-19 (MODERNA), MRNA, LNP-S, PF, 50 MCG/0.5 ML (AGES 12+ YEARS) Refusal Reason: PATIENT DECISION Patient refuses all immunization(s) in the COVID-19 group Date Documented: 09/07/24 09:06 Alcohol Use Screen (AUDIT-C) - V: Alcohol Screen: SCREEN FOR ALCOHOL (AUDIT-C) An alcohol screening test (AUDIT-C) was negative (score=0). 1. How often did you have a drink containing alcohol in the past year? Consider a drink to be a 12 ounce can or bottle of regular beer, 8 ounces of malt liquor, a 5 ounce glass of table wine, or a 1.5 ounce shot of liquor (like scotch, gin, or vodka). Never 2. How many drinks containing alcohol did you have on a typical day when you were drinking in the past year? Response not required due to responses to other questions. 3. How often did you have six or more drinks on one occasion in the past year? Response not required due to responses to other questions. Depression Screening - V: Perform PHQ-2 A PHQ-2 screen was performed. The score was 0 which is a negative screen for depression. Over the past two weeks, how often have you been bothered by the following problems? 1. Little interest or pleasure in doing things Not at all 2. Feeling down, depressed, or hopeless Not at all Advanced Directive Screen/Maintenance Plumber: ADVANCE DIRECTIVE SCREENING: I asked if the patient has an advance directive, and determined that: Patient does not have an Advance Directive. Patient was given form to update and return when completed. ADVANCE DIRECTIVE NOTIFICATION I provided the patient with written notification about advance directives. Level of understanding: Good Influenza Immunization - L,N,P,PH,U: Deferral / Refusal The patient declines to receive the recommended dose of seasonal influenza vaccine. Immunization: INFLUENZA, UNSPECIFIED FORMULATION Refusal Reason: PATIENT DECISION Patient refuses all immunization(s) in the FLU group Date Documented: 09/07/24 09:09 Pneumococcal Conjugate Vaccine (PCV15/PCV20) - L,N,P,PH,U: Refuses PCV vaccine Immunization: PNEUMOCOCCAL CONJUGATE, UNSPECIFIED FORMULATION Refusal Reason: PATIENT DECISION Patient refuses all immunization(s) in the PneumoPCV group Date Documented: 09/07/24 09:09 Pain Assessment: - PAIN ASSESSMENT: .. This patient's last pain assessment score was: 6 (09/07/2024 08:38). A detailed pain assessment showed the following: Pain characteristics (per patient's own words) Constant, Aching, Burning, Numbness Location of current pain Leg, Low Back Onset/Duration of the current pain. Constant or variable? More than a year Patient's self identified pain goal: 0 Weight Control/Nutrition Counseling: * The patient received the following counseling at this encounter: Patient was encouraged to restrict fat, especially saturated fats, in a normal diet. Benefit of a diet high in fiber was discussed. Patient was advised to include 5 or more servings of fruit and vegetables and six or more servings of grains as a well balanced diet. Patient/Nurse Interview: * * Patient stated that adequate information was received regarding the condition and/or treatment. Hepatitis B Immunization - L,N,P,PH,U: The patient declines to receive the recommended dose of Hepatitis B vaccine. Immunization: HEP B, UNSPECIFIED FORMULATION Refusal Reason: PATIENT DECISION Patient refuses all immunization(s) in the HepB group Comment: to have titer drawn per provider Date Documented: 09/07/24 09:11 Per [facility] Directive 1605.06, wristband documentation: Patient wristband was removed and destroyed by (staff name) Evan Herron and placed in the designated [employer] bin. /ashley/ Evan Herron DEPARTMENTAL SECRETARY [facility] Signed: 09/07/2024 09:11 EVAN HERRON [facility]
--- OUTSIDE RECORDS SUMMARY | 2024-09-15 04:45 | XMS_ITS | Encounter Summary ---
Author Name [facility] [facility] [place] Address [address] [place] [address] Care Team Providers Care Certified Emergency Vehicle Technician Name Role Phone LUIS BALTAZAR Primary Care Provider Unavailabl e Insurance [...] PART B Apr 16, 2023 PART B [id number] [phone] JOSE HUGGINS PATIENT MEDICARE (WNR) MEDICARE (M) PART A Apr 16, 2023 PART A [id number] JOSE HUGGINS PATIENT -FO R-LIFE [facility] FOR LIFE WNR Apr 16, 2023 FOR LIFE [id number] [phone] JOSE HUGGINS PATIENT Selected Encounter This section includes the information on record at [place] for the Encounter. Date/Time Encounter Type Encounter Description Reason Provider Source Sep 15, 2024 09:45 AM OFF/OP EST MAY X REQ PHY/QHP PRIMARY CARE/MEDICINE ICD-10-CM I10 Essential (primary) hypertension AMY HERRON IHE Encounter Template Text not used by [place] Assessments - Encounter Diagnoses This section includes the primary and secondary diagnoses documented for the Encounter. Date/Time Primary/Secondary Diagnosis Diagnosis Name Provider Source Sep 15, 2024 04:14 PM PRIMARY Essential (primary) hypertension EVAN HERRON [facility] Plan of Treatment: Future Appointments (+ 6 months) and Future Tests (+/- 45 days) The Plan of Treatment section includes future care activities for the patient from all [place] [facility]. This section includes future appointments and future orders which are active, pending or scheduled. Future Appointments This section includes appointments that were scheduled to occur 6 months from the date of the Encounter, up to a maximum of 20 appointments. The data comes from all [place] treatment facilities. Appointment Date/Time Appointment Type Appointme nt Facility Name Oct 13, 2024 03:30 PM AMBULATORY - MEDICINE [place] [facility] Oct 23, 2024 03:00 PM AMBULATORY - MEDICINE [facility] Nov 01, 2024 03:00 PM AMBULATORY - NONE [place] [facility] Nov 30, 2024 10:25 AM AMB[facility]ORY - MEDICINE [place] [facility] Dec 01, 2024 03:30 PM AMB[facility]ORY - MEDICINE [place] [facility] Dec 08, 2024 11:00 AM AMBULATORY - MEDICINE [facility] December 15, 2024 03:00 PM AMBULATORY - MEDICINE [facility] January 05, 2025 10:00 AM AMBULATORY - MEDICINE [facility] January 12, 2025 03:00 PM AMBULATORY - MEDICINE [facility] Feb 07, 2025 11:00 AM [facility] Active, Pending, and Scheduled Orders This section includes a listing of several types of active, pending, and scheduled orders, including clinic medications orders, diagnostic test orders, procedure orders and consult orders; where the start date of the order is 45 days before the date of the Encounter or 45 days after the date of theEncounter. The data comes from all [facility]. Test Date/Time Test Type Test Details Facility Name Sep 07, 2024 09:19 AM Laboratory - Chemi stry Order ANCILLARY STREP (PB) THROAT PHARYNX SP [facility] Lab Results: +/- 30 days of the encounter This section includes the Chemistry and Hematology Lab Results on record with [facility] for the patient. Radiology Reports and Pathology Reports are provided separately, in subsequent sections. Lab Results This section contains the Chemistry/Hematology Results that were resulted 30 days before or 30 daysafter the date of the Encounter. Date/Time Source Result Type Result - Unit Interpretation Reference Range Specimen Type Comment Sep 07, 2024 09:23 AM [facility] ANCILLARY STREP (PB) SWAB Specimen Type: SWAB Comment: Test performed by: Gopal Gordon [id number] Meter #: [id number] Ordering Provider: LUIS BALTAZAR Report Released Date/Time: Sep 07, 2024 09:30 AM Reporting Lab: [facility] [address] [facility] [address] Performing Lab: [facility] [address] [facility] [address] ANCILLARY STREP (PB) negative Sep 06, 2024 10:47 AM [facility] URINALYSIS (STL-PB) URINE Specimen Type: URIN E No comment entered. Ordering Provider: LUIS BALTAZAR Report Released Date/Time: Sep 06, 2024 10:46 AM Reporting [facility] [address] [place] [facility] [address] Performing Lab: [facility] [address] [facility] [address] URINE COLOR Yellow Yellow U.BILIRUBIN NEGATIVE mg/dL [...] 1.029 1.005-1.029 Sep 06, 2024 08:17 AM [facility] B12 SERUM Specimen Type: SERUM No comment entered. Ordering Provider: LUIS BALTAZAR Report Released Date/Time: Aug 28, 2024 05:26 PM Reporting Lab: [place] [facility] [address] [place] [id number] Performing Lab: [place] [facility] [address] [place] [id number] B12 447 pg/mL 213-816 Sep 06, 2024 08:17 AM [facility] FOLATE (PB) SERUM Specimen Typ e: SERUM No comment entered. Ordering Provider: LUIS BALTAZAR Report Released Date/Time: Aug 28, 2024 05:26 PM Reporting Lab: [place] [facility] [address] [place] [id number] Performing Lab: [place] [facility] [address] [place] [id number] FOLATE (PB) 12.3 ng/mL 7-20 Sep 06, 2024 08:17 AM [facility] COMPREHENSIVE METABOLIC PANEL PLASMA Specimen Type: PLASMA No comment entered. Ordering Provider: LUIS BALTAZAR Report Released Date/Time: Aug 28, 2024 05:26 PM Reporting Lab: [place] [facility] [address] [place] [id number] Performing Lab: [place] [facility] [address] [place] [id number] CREATININE 0.90 mg/dL 0.7-1.3 UREA NITROGEN 17 [...] 2020) 94 Sep 06, 2024 08:17 AM [facility] HGA1C BLOOD Specimen Type: BLOOD No comment entered. Ordering Provider: LUIS BALTAZAR Report Released Date/Time: Aug 28, 2024 05:26 PM Reporting Lab: [place] [facility] [address] [place] [id number] Performing Lab: [place] [facility] [address] [place] [id number] HGA1C 5.9 4.0-6.0 Sep 06, 2024 08:17 AM [facility] CBC BLOOD Specimen Type: BLOOD No comment entered. Ordering Provider: LUIS BALTAZAR Report Released Date/Time: Aug 28, 2024 05:26 PM Reporting Lab: [place] [facility] [address] [place] [id number] Performing Lab: [place] [facility] [address] [place] [id number] WBC 6.2 10*3/uL 3.6-11.2 RBC 5.58 10*6/uL [...] 0. 00-0.05 Sep 06, 2024 08:17 AM [facility] VITAMIN D, 25-HYDROXY SERUM Specimen Type: SE RUM No comment entered. Ordering Provider: LUIS BALTAZAR Report Released Date/Time: Aug 28, 2024 05:26 PM Reporting Lab: [place] [facility] [address] [place] [address] Performing Lab: [place] [facility] [address] [place] [address] VITAMIN D, 25-HYDROXY 31.5 ng/mL 30-96 Sep 06, 2024 08:17 AM [facility] CHOLESTEROL PANEL (PB) PLASMA Specimen Type: P LASMA No comment entered. Ordering Provider: LUIS BALTAZAR Report Released Date/Time: Aug 28, 2024 05:26 PM Reporting Lab: [place] [facility] [address] [place] [id number] Performing Lab: [place] [facility] [address] [place] [id number] CHOLESTEROL 166 mg/dL 0-200 TRIGLYCERIDE 220 mg/dL H 0-150 CALCULATED LDL 88.0 mg/dL HDL(New) 34.0 mg/dL L >40 HDL % OF TOTAL CHOLESTEROL (PB) 20.5 >25 Sep 06, 2024 08:17 AM [facility] PROST. SPECIFIC AG.(PB-STL) SERUM Specimen Ty pe: SERUM No comment entered. Ordering Provider: LUIS BALTAZAR Report Released Date/Time: Aug 28, 2024 05:26 PM Reporting Lab: [place] [facility] [address] [place] [id number] Performing Lab: [place] [facility] [address] [place] [id number] PROST. SPECIFIC AG.(PB-STL) 3.06 ng/mL 0 -4 Sep 06, 2024 08:17 AM [facility] TSH ([place]-PB) SERUM Specimen Typ e: SERUM No comment entered. Ordering Provider: LUIS BALTAZAR Report Released Date/Time: Aug 28, 2024 05:26 PM Reporting Lab: [place] [facility] [address] [place] [address] Performing Lab: [place] [facility] [address] [place] [address] TSH 2.681 u[IU]/mL 0.47-5 Vital Signs: All taken on the encounter date This section contains inpatient and outpatient Vital Signs collected on the date of the Encounter. Date/Time Temperature Pulse Blood Pressure Respiratory Rate SP02 Pain Height Weight Body Mass Index Source Sep 15, 2024 09:38 AM 97.7 56 128/79 20 96 7 213.5 30 [facility] [place] [facility] Social History: Smoking Status (Most current) and Tobacco Use (All prior to encounter date) This section includes the most current, and the historical, smoking and tobacco- related health factors from the [place] facility where the Encounter took place. Current Smoking Status This section includes the most current smoking, or tobacco-related health factor, from the [place] facility where the Encounter took place. Date/Time Current Smoking Status Comment Facil ity Sep 08, 2023 08:30 AM VA-TOBACCO FORMER USER [facility] Tobacco Use History This section includes a history of the smoking, or tobacco-related health factors, that were collected on or before the date of the Encounter. The data comes from the [place] facility where the Encounter took place. 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 [facility] Sep 08, 2022 08:30 AM VA-TOBACCO USE MED NO [facility] Sep 08, 2022 08:30 AM VA-TOBACCO USE WI 30 MIN OF WAKE UP [facility] Sep 08, 2022 08:30 AM VA-TOBACCO USER EVERY DAY [facility] Sep 08, 2021 08:30 AM VA-TOBACCO NEVER USED [facility] Sep 10, 2020 10:00 AM VA-TOBACCO FORMER USER [facility] Sep 10, 2020 10:00 AM VA-TOBACCO QUIT 5 TO < 15 YRS [facility] Sep 07, 2019 10:32 AM VA-TOBACCO FORMER USER [facility] Sep 07, 2019 10:32 AM VA-TOBACCO QUIT 1 TO < 5 YRS [facility] Encounter Notes: All associated encounter notes This section contains the clinical notes associated to the Encounter. Date/Time Encounter Note(s) Provider Source Sep 15, 2024 04:01 PM NURSING PROGRESS N OTE: LOCAL TITLE: NURSING NOTE PB STANDARD TITLE: NURSING PROGRESS NOTE DATE OF NOTE: SEP 15, 2024@16:01 ENTRY DATE: SEP 15, 2024@16:01:09 AUTHOR: EVAN HERRON EXP COSIGNER: URGENCY: STATUS: COMPLETED NURSING NOTE PB Has ADDENDA This is a 64 year old MALE with known Allergies as noted: Patient has answered NKA On the following Active Medications: Active Outpatient [...] USE ONLY. 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 Alli was hypertensive last time he was in clinic for his PCP visit. Alli does not take any BP medications. was to complete a blood pressure log and bring it with him to this visit. Alli did not bring his blood pressure log with him. states he only took his blood pressure about three times. Alli's BP and clinic today was 128 / 79 with a heart rate of 56. Parsons also reports he has been having some left sided sciatic pain. sees Chiro and massage therapy but would also like to try physical therapy in the [facility] for low bacl and sciatic pain. Advised to continue to log his blood pressure once a day and if he notices it trending up or above 139 / 89 to report that to the PACT team. Advised that a physical therapy consult would be placed for him if provider is in agreement and he would be notified of scheduling. Advised if he has not heard anything in two weeks to contact pack team. Parsons voiced understanding and all questions and concerns addressed at this time. PT consult placed and held for {bertram signature. /es/ Evan Herron RN BSN BRYNN Javier [facility] Signed: 09/15/2024 16:12 Receipt Acknowledged By: 09/19/2024 06:30 /es/ ARELY Morin, MSN, Brynn Javier [facility] 09/15/2024 ADDENDUM STATUS: COMPLETED Per [facility] Directive 1605.06, wristband documentation: Patient wristband was removed and destroyed by (staff name) Evan Herron and placed in the designated Tellme[employer]-It bin. /ashley/ Evan Herron RN BSN BR[facility] Signed: 09/15/2024 16:13 EVAN HERRON [facility]
--- OUTSIDE RECORDS SUMMARY | 2024-10-23 10:00 | XMS_ITS | Encounter Summary ---
Author Name [facility] [place] Address [address] [place] [address] Care Team Providers Care English Language Learner Teacher Name Role Phone LUIS BALTAZAR Primary Care [...] Policy Ervin MEDICARE (WNR) MEDICARE (M) PART A Apr 16, 2023 PART A [id number] JOSE HUGGINS PATIENT MEDICARE (WNR) MEDICARE (M) PART B Apr 16, 2023 PART B [id number] [phone] JOSE HUGGINS PATIENT -FO R-LIFE [facility]ICA RE FOR LIFE WNR Apr 16, 2023 FOR LIFE [id number] [phone] JOSE HUGGINS PATIENT Selected Encounter This section includes the information on record at [place] for the Encounter. Date/Time Encounter Type Encounter Description Reason Provider Source Oct 23, 2024 03:00 PM THERAPEUTIC EXERCISES PHYSICAL THERAPY ICD-10-CM M54.32 Sciatica, left side NENA BROOKS [facility] Encounter Template Text not used by [place] Assessments - Encounter Diagnoses This section includes the primary and secondary diagnoses documented for the Encounter. Date/Time Primary/Secondary Diagnosis Diagnosis Name Provider Source Oct 23, 2024 04:04 PM PRIMARY Sciatica, left side BALTA BROOKS [facility] Plan of Treatment: Future Appointments (+ 6 months) and Future Tests (+/- 45 days) The Plan of Treatment section includes future care activities for the patient from all [place] [facility]. This section includes future appointments and future orders which are active, pending or scheduled. Future Appointments This section includes appointments that were scheduled to occur 6 months from the date of the Encounter, up to a maximum of 20 appointments. The data comes from all [place] treatment facilities. Appointment Date/Time Appointment Type Appointme nt Facility Name Nov 01, 2024 03:00 PM AMBULATORY - NONE [place] [facility] Nov 30, 2024 10:25 AM AMBULATORY - MEDICINE [place] [facility] Dec 01, 2024 03:30 PM AMB[facility]ORY - [facility]ICINE [place] [facility] Dec 08, 2024 11:00 AM AMBULATORY - MEDICINE [facility] December 15, 2024 03:00 PM AMBULATORY - MEDICINE [facility] January 05, 2025 10:00 AM AMBULATORY - MEDICINE [facility] January 12, 2025 03:00 PM AMBULATORY - MEDICINE [facility] Feb 07, 2025 11:00 AM AMBULATORY - MEDICINE [place] [facility] Mar 21, 2025 08:00 AM AMBULATORY - MEDICINE [facility] Social History: Smoking Status (Most current) and Tobacco Use (All prior to encounter date) This section includes the most current, and the historical, smoking and tobacco- related health factors from the [place] facility where the Encounter took place. Current Smoking Status This section includes the most current smoking, or tobacco-related health factor, from the [place] facility where the Encounter took place. Date/Time Current Smoking Status Comment Herminio franklin Sep 08, 2023 08:30 AM VA-TOBACCO FORMER USER [facility] Tobacco Use History This section includes a history of the smoking, or tobacco-related health factors, that were collected on or before the date of the Encounter. The data comes from the [place] facility where the Encounter took place. 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 [facility] Sep 08, 2022 08:30 AM VA-TOBACCO USE MED NO [facility] Sep 08, 2022 08:30 AM VA-TOBACCO USE WI 30 MIN OF WAKE UP [facility] Sep 08, 2022 08:30 AM VA-TOBACCO USER EVERY DAY [facility] Sep 08, 2021 08:30 AM VA-TOBACCO NEVER USED [facility] Sep 10, 2020 10:00 AM VA-TOBACCO FORMER USER [facility] [place] [facility] Sep 10, 2020 10:00 AM VA-TOBACCO QUIT 5 TO < 15 YRS [facility] Sep 07, 2019 10:32 AM VA-TOBACCO FORMER USER [facility] Sep 07, 2019 10:32 AM VA-TOBACCO QUIT 1 TO < 5 YRS [facility] Encounter Notes: All associated encounter notes This section contains the clinical notes associated to the Encounter. Date/Time Encounter Note(s) Provider Source Oct 23, 2024 02:59 PM PHYSICAL THERAPY C ONSULT: LOCAL TITLE: PHYSICAL THERAPY CONSULTS STANDARD TITLE: PHYSICAL THERAPY CONSULT DATE OF NOTE: OCT 23, 2024@14:59 ENTRY DATE: OCT 23, 2024@14:59:25 AUTHOR: BALTA BROOKS EXP COSIGNER: URGENCY: STATUS: COMPLETED Diagnosis: Sciatica, left Side Subjective Patient presents with complaints of low back and left radicular symptoms. He reports numbness down left lateral leg. He does report numbness in B feet. He reports a history of chronic pain that began during his time in the . reports that he has been stretching at home with some relief. Surgical history: Right 1st finger Patient's chief complaint is low back and LLE Pain rated currently as 6/10; At worst 8/10; At best 4/10 Location of pain is low back and LLE Discomfort is described as sharp, burning Symptoms increase with yard work, and decrease with massage therapy, aged or disabled carer, medication Patient's goal is to manage his symptoms Patient demonstrates fair potential to reach goal Patient currently lives in [facility] [place] Objective Oswestry Disability Index score 24% Examination Posture: Patient demonstrates Gait: left antalgic gait pattern Neurological - Light touch: decreased left L4-5 dermatome - Deep tendon reflexes: 3+ bilateral patellar Upon palpation the patient tenderness is noted in lumbar paraspinals, left glutes, L piriformis The following thoracolumbar active ROM % observed Flexion 75% Extension 15% Lateral flexion Left 25% Right 25% Rotation Left 25% Right 25% The following manual muscle tests on scale of 5 hip abduction Left 4/5 Right 5/5 hip adduction Left 4/5 Right 5/5 hip flexion Left 4/5 Right 5/5 knee flexion Left 4/5 Right 5/5 knee extension Left 5/5 Right 5/5 dorsiflexion Left 5/5 Right 5/5 Short sitting position used with knee flexion and hip adduction/abduction manual muscle tests. The following muscle lengths observed in Lower Extremity hamstrings L max, R mod piriformis L max, R mod hip adductors L max, R mod Special Tests: posterior quadrant: negative SLR: positive left Slump: positive left CORINE: negative FADIR: negative hip scour: negative Patient Education: Patient was educated on precautions, expected outcomes, and a home exercise program. [facility] goals were established and patient consents to the plan of care. Therapeutic exercise: -single knee to chest 30 seconds -piriformis stretch 30 seconds -active hamstring stretch 10x Prosthetic consults for TENS unit. Assessment Patient presents with the above findings and is a good candidate for physical therapy services. The patient was instructed in a home program (demo and visual aide) and demonstrated understanding. The patient would benefit from skilled Physical Therapy to address pain, soft tissue mobility, core and lower extremity strength, thoracolumbar range of motion, functional mobility deficits, and ADls. Complexity is low with stable presentation. Plan Short term goals to be achieved in 3 weeks: 1) Patient will be (I) with home exercise. 2) Patient will decrease pain complaints by 25% or more within to improve ADL performance. 3) Patient will increase LE strength by 1/2 grade or more overall within in order to decrease pain and improve ADLs. skilled nursing goals to be achieved in 6 weeks: 1) Patient will have WNL thoracolumbar ROM to decrease pain and improve functional mobility. 2) Patient will increase LE strength by +1 Manual Muscle Grade or more overall. 3) Patient will be decrease his Oswestry score to 13% for improved thoracolumbar function. (MCID 11 points) Treatment Plan: Physical Therapy 1 days per week for 6 weeks. Physical therapy may include: Patient education, therapeutic exercise, therapeutic activities, manual therapy, neuromuscular reeducation, and modalities as indicated. Total Treatment Time: 60 minutes Therapeutic exercise: 10 minutes Visit 1 of /ashley/ Balta Brooks PT, DPT Saleem LUNDY Signed: 10/23/2024 16:05 BALTA BROOKS [place] [facility]
--- OUTSIDE RECORDS SUMMARY | 2024-12-08 06:00 | XMS_ITS | Encounter Summary ---
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 Date/Time Encounter Type Encounter Description Reason Provider Source Dec 08, 2024 11:00 AM OFF/OP EST MAY X REQ PHY/QHP PRIMARY CARE/MEDICINE ICD-10-CM H92.03 Otalgia, bilateral CUSTRED,JEN J [facility] Encounter Template Text not used by [place] Assessments - Encounter Diagnoses This section includes the primary and secondary diagnoses documented for the Encounter. Date/Time Primary/Secondary Diagnosis Diagnosis Name Provider Source Dec 08, 2024 11:42 AM PRIMARY Otalgia, bilateral CUSTRED,JEN J [facility] Plan of Treatment: Future Appointments (+ 6 months) and Future Tests (+/- 45 days) The Plan of Treatment section includes future care activities for the patient from all [place] treatmentfacilities. This section includes future appointments and future orders which are active, pending or scheduled. Future Appointments This section includes appointments that were scheduled to occur 6 months from the date of the Encounter, up to a maximum of 20 appointments. The data comes from all [place] treatment facilities. Appointment Date/Time Appointment Type Appointme nt Facility Name December 15, 2024 03:00 PM AMBULATORY - MEDICINE [facility] January 05, 2025 10:00 AM AMBULATORY MEDICINE [facility] January 12, 2025 03:00 PM AMBULATORY MEDICINE [facility] Feb 07, 2025 11:00 AM AMBULATORY - MEDICINE [facility] Mar 21, 2025 08:00 AM AMBULATORY MEDICINE [facility] Active, Pending, and Scheduled Orders This section includes a listing of several types of active, pending, and scheduled orders, including clinic medications orders, diagnostic test orders, procedure orders and consult orders; where the start date of the order is 45 days before the date of the Encounter or 45 days after the date of theEncounter. The data comes from all [place] treatment facilities. Test Date/Time Test Type Test Details Facility Name December 15, 2024 07:20 AM Consult Order [facility]UNITY CARE-UROLOGY PB [id number] Cons Tilting Head Band Sawyer's Choice [facility] Vital Signs: All taken on the encounter date This section contains inpatient and outpatient Vital Signs collected on the date of the Encounter. Date/Time Temperature Pulse Blood Pressure Respiratory Rate SP02 Pain Height Weight Body Mass Index Source Dec 08, 2024 11:28 AM 98.1 78 133/82 [facility] Social History: Smoking Status (Most current) and Tobacco Use (All prior to encounter date) This section includes the most current, and the historical, smoking and tobacco- related health factors from the [place] facility where the Encounter took place. Current Smoking Status This section includes the most current smoking, or tobacco-related health factor, from the [place] facility where the Encounter took place. Date/Time Current Smoking Status Comment Herminio ity Sep 08, 2023 08:30 AM VA-TOBACCO FORMER USER [facility] Tobacco Use History This section includes a history of the smoking, or tobacco-related health factors, that were collected on or before the date of the Encounter. The data comes from the [place] facility where the Encounter took place. 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 [facility] Sep 08, 2022 08:30 AM [place]AC[place] USE MED [place] [facility] [place] [facility] Sep 08, 2022 08:30 AM VA-TOBACCO USE WI 30 MIN OF WAKE UP [facility] [place] [facility] Sep 08, 2022 08:30 AM VA-TOBACCO USER EVERY DAY [facility] [place] [facility] Sep 08, 2021 08:30 AM VA-TOBACCO NEVER USED [facility] Sep 10, 2020 10:00 AM VA-TOBACCO FORMER USER [facility] Sep 10, 2020 10:00 AM VA-TOBACCO QUIT 5 TO < 15 YRS [facility] Sep 07, 2019 10:32 AM VA-TOBACCO FORMER USER [facility] [place] [facility] Sep 07, 2019 10:32 AM VA-TOBACCO QUIT 1 TO < 5 YRS [facility] Encounter Notes: All associated encounter notes This section contains the clinical notes associated to the Encounter. Date/Time Encounter Note(s) Provider Source Dec 08, 2024 11:28 AM NURSING PROGRESS N OTE: LOCAL TITLE: NURSING NOTE PB STANDARD TITLE: NURSING PROGRESS NOTE DATE OF NOTE: DEC 08, 2024@11:28 ENTRY DATE: DEC 08, 2024@11:28:10 AUTHOR: JEN MCKEON EXP COSIGNER: URGENCY: STATUS: COMPLETED Blood Pressure: 133/82 Pulse: 78 Temperature: 98.1 F (36.7 C) Pulse Oximetry: 98% Active Outpatient Medications: Active Outpatient Medications (including Supplies): Active Outpatient Medications Status 1) CYCLOBENZAPRINE HCL 10MG TAB TAKE ONE TABLET BY MOUTH THREE ACTIVE TIMES A DAY NEEDED MAY CAUSE DROWSINESS. DO NOT DRINK ALCOHOL WHILE TAKING THIS MEDICATION. Indication: FOR MUSCLE SPASM 2) KETOCONAZOLE 2% CREAM APPLY LIGHTLY TO AFFECTED AREA(S) ONCE ACTIVE A DAY TO AREAS OF SCALING ON FACE FOR 2 WEEKS THEN NEEDED FOR RECURRENCE 3) KETOCONAZOLE 2% SHAMPOO USE SHAMPOO TO AFFECTED AREA(S) ACTIVE DIRECTED TWO TO THREE TIMES A WEEK TO SCALP AND CLEMENT. LET SIT FOR 5 MINUTES THEN RINSE. (EXTERNAL USE ONLY) (SHAKE WELL) 4) TAMSULOSIN HCL 0.4MG CAP TAKE ONE CAPSULE BY MOUTH EVERY ACTIVE EVENING APPROXIMATELY 30 MINUTES AFTER THE SAME MEAL EACH DAY Indication: FOR BENIGN PROSTATIC HYPERPLASIA Active Non-VA Medications Status 1) Non-VA CHOLECALCIF 25MCG (D3-1,000UNIT) TAB 25MCG BY MOUTH ACTIVE ONCE A DAY 2) Non-VA FISH OIL 1000MG (500MG DHA/EPA) CAP 1000MG BY MOUTH ACTIVE TWICE A DAY CC: Adel presents to clinic for bilateral ear pain. Subjective: states he has been having bilateral ear pain for past few days. Now reporting soreness behind ears and upper part of neck. Denies fevers, chills, or malaise. Reports history of ear infections and states he feels like he has ear infection. O/A: Adel is alert and oriented. Denies headache or fevers. Respirations easy and non-labored, breath sounds clear. No nasal congestion or cough noted. Otoscope used to visualize ear canals. Bilateral tympanic membranes intact with mild bulging. Mild redness to TM with no perforations or drainage. Moderate amount of cerumen also present in ear canals. No palpable lumps in neck. Plan/ Intervention: Discussed with ELDON Smith as ELDON Real out of clinic today. New prescription for Augmentin twice daily for 7 days. Hand written prescription and immediate need form hand delivered to to present to pharmacy. Educated to use OTC Flonase also to encourage ears to drain. Use nasal spray twice daily for 5 days. to return to clinic after treated for infection for requested ear lavage. RTC: As scheduled and as needed. Return for ear lavage after treatment for evacuation of cerumen. Per [facility] Directive 1605.06, wristband documentation: Patient wristband was removed and destroyed by (staff name) Jen Mckeon and placed in the designated [employer] bin. /es/ JEN CEBALLOS RN [facility] Signed: 12/08/2024 11:41 Receipt Acknowledged By: 12/08/2024 12:09 /es/ ARELY Mcqueen-DIANE DeltaNIKKIE,JEN Dubon [facility] LUNDY
--- OUTSIDE RECORDS SUMMARY | 2025-01-05 05:00 | XMS_ITS | Encounter Summary ---
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 Date/Time Encounter Type Encounter Description Reason Provider Source January 05, 2025 10:00 AM NDL INSJ W/O NJX 3+ [facility] PHYSICAL THERAPY ICD-10-CM M54.32 Sciatica, left side CRAIGBALTA Bonilla E Encounter Template Text not used by [facility] Assessments - Encounter Diagnoses This section includes the primary and secondary diagnoses documented for the Encounter. Date/Time Primary/Secondary Diagnosis Diagnosis Name Provider Source January 05, 2025 01:38 PM PRIMARY Sciatica, left side NENA BROOKSS Irene [facility] Plan of Treatment: Future Appointments (+ 6 months) and Future Tests (+/- 45 days) The Plan of Treatment section includes [facility] care activities for the [facility] [place] [facility] This section includes future appointments and future orders which are active, pending or scheduled. Future Appointments This section includes appointments that were scheduled to occur 6 months from the date of the Encounter, up to a maximum of 20 appointments. The data comes from all [place] treatment facilities. Appointment Date/Time Appointment Type Appointme nt Facility Name January 12, 2025 03:00 PM AMBULATORY - MEDICINE [facility] Feb 07, 2025 11:00 AM AMBULATORY - MEDICINE [facility] Mar 21, 2025 08:00 AM AMBULATORY - MEDICINE [facility] Active, Pending, and Scheduled Orders This section includes a listing of several types of active, pending, and scheduled orders, including clinic medications orders, diagnostic test orders, procedure orders and consult orders; where the start date of the order is 45 days before the date of the Encounter or 45 days after the date of theEncounter. The data comes from all [place] treatment facilities. Test Date/Time Test Type Test Details Facility Name December 15, 2024 07:20 AM Consult Order COMMUNITY CARE-UROLOGY PB [id number] Cons Relief Pharmacist's Choice [facility] Social History: Smoking Status (Most current) and Tobacco Use (All prior to encounter date) This section includes the most current, and the historical, smoking and tobacco- related health factors from the [place] facility where the Encounter took place. Current Smoking Status This section includes the most current smoking, or tobacco-related health factor, from the [place] facility where the Encounter took place. Date/Time Current Smoking Status Comment Herminio franklin Sep 08, 2023 08:30 AM VA-TOBACCO FORMER USER [facility] Tobacco Use History This section includes a history of the smoking, or tobacco-related health factors, that were collected on or before the date of the Encounter. The data comes from the [place] facility where the Encounter took place. 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 Date/Time Encounter Note(s) Provider Source January 05, 2025 09:55 AM PHYSICAL THERAPY N OTE: LOCAL TITLE: PHYSICAL THERAPY NOTE PB STANDARD TITLE: PHYSICAL THERAPY NOTE DATE OF NOTE: JANUARY 05, 2025@09:55 ENTRY DATE: JANUARY 05, 2025@09:55:58 AUTHOR: BALTA BROOKS COSIGNER: URGENCY: STATUS: COMPLETED Diagnosis: Sciatica, left Side Subjective Velma reports 5/10 low back pain. He does also reports right anterior hip pain that began several days ago. Velma went into detail about his home exercises and reports compliance. Objective Therapeutic exercise: -single knee to chest 30 seconds x2 -piriformis stretch 30 seconds -active hamstring stretch 20x -lower trunk rotation 2 minutes -side lying clamshell 20x -side lying reverse clamshell 20x -modified bug 1 minute x2 Dry Needling Informed Consent: Patient was informed on the risks and benefits of dry needling (DN)as well as alternative treatments. Patient was educated on the risks for the procedure which include possible pneumothorax, bruising, infection and/or nerve injury. Patient was also educated on positive effects of DN such as releasing the trigger point, increasing flexibility of muscles, decreasing symptoms of pain and increasing function of the overall muscle. Patient was instructed to inform the therapist whether he/she is on an anticoagulant or has another blood disorder so that precautions can be taken. Patient was informed about other potential alternatives to treatment besides DN. Patient was also educated to inform the therapist of the sensations he/she experiences during the dry needling process, such as cramping,aching,sharpness, or numbness and tingling. Patient provided verbal consent for DN to be performed. Location (area prepared according to Infection Control Policy): bilateral gluteus medius, left piriformis # [place] used in treatment:4 [place] disposed of according to Infection control Policy. # [place] disposed of in appropriate sharps receptacle:4 Education: Patient was educated to drink plenty of water after therapy treatment and that they may experience soreness for the next 10-12 hours. Patient was also instructed to continue with normal daily activities for the remainder of the day, however, not to engage in activities that will overstress the body beyond the patient's normal limits. Patient education: was educated on an updated home exercise program and was given a handout. He was also educated on proper TENS use to which he verbalized understanding. Assessment responded well to dry needling today with reported decreased pain. He was able to progress with therapeutic exercises which were printed out and sent home with to perform for home exercise program. Discussed at length of management of his low back pain through gradual physical activity. Discussed proper response to exercises, and how/when to modify exercises if not achieving desired results. Educated on home TENS unit, and he verbalized understanding of safe/correct use of TENS unit. Plan Will continue to progress through his physical therapy plan of care to address left sciatica. Short term goals to be achieved in 3 weeks: 1) Patient will be (I) with home exercise. 2) Patient will decrease pain complaints by 25% or more within to improve ADL performance. 3) Patient will increase LE strength by 1/2 grade or more overall within in order to decrease pain and improve ADLs. 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 Total Treatment Time: 60 minutes Therapeutic exercise: 30 minutes Dry needlin minutes Patient education: 15 minutes Visit 2 of Soraida /ashley/ Balta Brooks PT, DPT [facility] Signed: 01/05/2025 13:39 BALTA BROOKS [place] EMI CT NIKKIE
[2025-02-07 05:35] VITALS: BP 158/89; PULSE 73; RESP 18; TEMP 36.4; O2SAT 97; BMI 29.0
--- NOTE | 2025-02-07 05:37 | CTR_ITS ---
PROCEDURE INFORMATION: Exam: CT Abdomen And Pelvis With Contrast Exam date and time: 02/07/2025 6:28 AM Age: 64 years old Clinical indication: Abdominal pain; Localized; Left lower quadrant (llq); Additional info: Right sided abd pain TECHNIQUE: Imaging protocol: Computed tomography of the abdomen and pelvis with contrast. Radiation optimization: All CT scans at this facility use at least one of these dose optimization techniques: automated exposure control; mA and/or kV adjustment per patient size (includes targeted exams where dose is matched to clinical indication); or iterative reconstruction. Contrast material: OMNI 350; Contrast volume: 100 ml; Contrast route: INTRAVENOUS (IV); COMPARISON: CT abdomen pelvis w con* [id number] 10/21/2018 1:52 PM RADIATION DOSE METRICS: Total DLP (mGy-cm): 873.63 FINDINGS: Liver: Normal. No mass. Gallbladder and biliary ducts: Normal. No calcified stones. No ductal dilation. Pancreas: Normal. No ductal dilation. Spleen: 12 cm borderline splenomegaly. Adrenal glands: Normal. No mass. Kidneys and ureters: Renal cysts. Stomach and bowel: Mild inflammatory stranding near the junction of the descending and sigmoid colon indicating mild diverticulitis. No drainable abscess or perforation observed. Appendix: No evidence of appendicitis. Intraperitoneal space: Unremarkable. No free air. No significant fluid collection. Vasculature: Unremarkable. No abdominal aortic aneurysm. Lymph nodes: Unremarkable. No enlarged lymph nodes. Urinary bladder: Unremarkable as visualized. Reproductive: Enlarged 6 cm prostate. Bones/joints: Unremarkable. No acute fracture. Soft tissues: Unremarkable. CT/CT abdomen pelvis w con* [id number] IMPRESSION: Mild diverticulitis. COMMENTS: Consistent with the [employer]'s Incidental Findings Committee white paper (J Am Luis Radiol 2018): Any incidental renal lesion less than 1 cm or classified as too small to characterize, or any incidental cystic renal lesion characterized as simple-appearing, is likely benign. No follow-up imaging is recommended for these lesions per consensus recommendations based on imaging criteria.
--- OUTSIDE RECORDS SUMMARY | 2025-02-07 05:38 | XMS_ITS | Continuity of Care Document ---
Author Name [facility] Organization [facility] Care Team Providers Care Rn Lab Name Role Phone [facility] Unavailable Unavailable Problems Combined list of problems from Department of [facility] facilities. It does not include entries that were removed or entered in error. Problem Status Onset Date Problem Type Date of Resolution Comments Source Benign Prostatic Hypertrophy With Outflow Obstruction ([facility] [id number]) Active Condition [facility] Elevated PSA Active Condition [facility] H/O: vasectomy Active Condition [facility] HLD - Hyperlipidemia Active Condition [facility] Neuraligia of left sciatic nerve Active Condition [facility] Panic attack Active Condition [facility] Sleep Apnea (SCT [id number]) Active Condition Nov 07, 2019 Entered By: CARLOS VASQUEZ Comment: Mild per sleep study 10/2019. [facility] Diagnosis: ICD-10-CM M54.32 Sciatica, left side Active Diagnosis [facility] Diagnosis: ICD-10-CM H92.03 Otalgia, bilateral Active Diagnosis [facility] Diagnosis: ICD-10-CM G47.30 Sleep apnea, unspecified Active Diagnosis [facility] Diagnosis: ICD-10-CM I10 Essential (primary) hypertension Active Diagnosis [facility] Diagnosis: ICD-10-CM Z00.01 Encounter for general adult medical exam w abnormal findings Active Diagnosis [facility] Diagnosis: ICD-10-CM B35.1 Tinea unguium Active Diagnosis [facility] Diagnosis: ICD-10-CM L60.0 Ingrowing nail Active Diagnosis [facility] Diagnosis: ICD-10-CM E78.5 Hyperlipidemia, unspecified Active Diagnosis [facility] Medications Combined list of outpatient medications from Department of Defense and Veterans Affairs facilities.Medications provided include 1) outpatient medications from the last 15 months, and 2) patient-reported medications. Medication Details Route Status Patient Instructions Prescription Expires Prescription Number Last Dispense Date Ordering Provider Order Date Order Qty Source CHOLECALCIF ANEL 25MCG (1,000UNIT) TAB TAKE ONE TABLET BY MOUTH ONCE A DAY ORAL ACTIVE BAILEE VASQUEZ 2023 [facility] CYCLOBENZAP RINE (U/D) 10 MG ORAL TAB TAKE ONE TABLET BY MOUTH THREE TIMES A DAY NEEDED FOR MUSCLE SPASM MAY CAUSE DROWSINE SS. DO NOT DRINK ALCOHOL WHILE TAKING THIS MEDICATI ON. 12/20/2024 [id number] 4 BAILEE VASQUEZ 2023 60 [facility] CYCLOBENZAP RINE HCL 10MG TAB TAKE ONE TABLET BY MOUTH THREE TIMES A DAY NEEDED FOR MUSCLE SPASM MAY CAUSE DROWSINE SS. DO NOT DRINK ALCOHOL WHILE TAKING THIS MEDICATI ON. ORAL 12/20/2024 [id number] 4 BAILEE VASQUEZ 2023 60 [facility] FINASTERIDE 5MG TAB TAKE ONE TABLET BY MOUTH ONCE A DAY FOR BENIGN PROSTATI C HYPERPLA DAVID SWALLOW WHOLE, DO NOT CRUSH, SPLIT, OR CHEW. ORAL 10/14/2024 [id number] BAILEE VASQUEZ 2023 90 [facility] FISH OIL 1000MG (500MG DHA/EPA) CAP,ORAL TAKE 1 CAPSULE BY MOUTH TWICE A DAY ORAL ACTIVE BAILEE VASQUEZ 2023 [facility] KETOCONAZOL E 2% CREAM,TOP APPLY LIGHTLY TO AFFECTED AREA(S) ONCE A DAY TO AREAS OF SCALING ON FACE FOR 2 WEEKS THEN NEEDED FOR RECURREN CE TOPICA L ACTIVE 09/05/2025 [id number] DE PAZ,AGUSTÍN TTANY A [address] [place] KETOCONAZOL E 2% SHAMPOO USE SHAMPOO TO AFFECTED AREA(S) DIRECTED TWO TO THREE TIMES A WEEK TO SCALP AND CLEMENT. LET SIT FOR 5 MINUTES THEN RINSE. (EXTERNA L USE ONLY) (SHAKE WELL) TOPICA L ACTIVE 09/05/2025 [id number] DE PAZ,AGUSTÍN TTANY A [address] [place] [facility] ROSUVASTATI N CA 40MG TAB TAKE ONE-HALF TABLET BY MOUTH EVERY EVENING FOR HIGH CHOLESTE ROL TO LOWER CHOLESTE ROL ORAL 09/08/2024 [id number] BAILEE VASQUEZ 2023 45 [facility] TAMSULOSIN HCL 0.4MG CAP TAKE ONE CAPSULE BY MOUTH EVERY EVENING FOR BENIGN PROSTATI C HYPERPLA DAVID APPROXIM ATELY 30 MINUTES AFTER THE SAME MEAL EACH DAY ORAL ACTIVE 07/20/2025 [id number] EMEKA BALTAZAR G 2023 90 [facility] Allergies, Adverse Reactions, Alerts Combined list of allergies from Department of Defense and Veterans Affairs facilities. It does not include entries that were removed or entered in error. Substance Category Reaction Severity Reaction type Status Date Reported Comments Source No Known Allergies Drug allergy (disorder) active 04/24/2007 [facility] Immunizations Combined list of available immunizations from the Department of Defense and Veterans Affairs facilities. Immunization Series Date Given Administered By Site Reaction Lot Number CVX Code Drug Printing Supervisor Status Comments Source INFLUENZA, INJECTABLE, QUADRIVALENT, PRESERVATIVE FREE 2022 JEMMA MARSHALL RIGHT DELTO ID [id number] 150 complet ed [facility] INFLUENZA, INJECTABLE, QUADRIVALENT, PRESERVATIVE FREE 2021 150 complet ed [facility] TDAP 2021 115 complet ed [facility] ZOSTER RECOMBINANT 2 2021 187 complet ed [facility] ZOSTER RECOMBINANT 1 2020 187 complet ed [facility] COVID-19 (LAURIE), VECTOR-NR, RS-AD26, PF, 0.5 ML 2 2020 212 complet ed JSN; [id number]; [address] [place] [address] [facility] INFLUENZA, INJECTABLE, QUADRIVALENT, PRESERVATIVE FREE 2020 150 complet ed [facility] COVID-19 (LAURIE), VECTOR-NR, RS-AD26, PF, 0.5 ML 1 2020 212 complet ed JSN; [id number]; 1 [facility] INFLUENZA, INJECTABLE, QUADRIVALENT, PRESERVATIVE FREE 2019 150 complet ed [facility] INFLUENZA, UNSPECIFIED FORMULATION 2018 88 complet ed [facility] HEP B, ADULT 1 1997 43 complet ed HISTORICA L INFORMATI ON - FROM OTHER REGISTRY, [facility] Results Combined list of recent chemistry, hematology and other laboratory results from Department of Defense and Veterans Affairs, ranging from 15 months to all on record, depending upon the facility. Order Name Results Value Reference Range Date Interpretation Specimen Comments Source ANCILLARY STREP (PB) ANCILLARY STREP (PB) negative 09/07 Specimen Type: SWAB Comment: Test performed by: Gopal Gordon [id number] Meter #: [id number] Ordering Provider: BENY BALTAZAR Report Released Date/Time: Sep 07, 2024 09:30 AM Reporting Lab: [facility] [address] [facility] [address] Performing Lab: [facility] [address] [facility] [address] [facility] URINALYSI S (STL-PB) COLOR OF URINE Yellow 09/06 Specimen Type: URINE No comment entered. Ordering Provider: BENY BALTAZAR Report Released Date/Time: Sep 06, 2024 10:46 AM Reporting Lab: [place] [facility] [address] [place] [address] Performing Lab: [place] [facility] [address] [place] [address] [facility] URINALYSI S (STL-PB) BILIRUBIN.T OTAL [PRESENCE] IN URINE BY TEST STRIP NEGATIVEm g/dL 09/06 Specimen Type: URINE No comment entered. Ordering Provider: BENY BALTAZAR Report Released Date/Time: Sep 06, 2024 10:46 AM Reporting Lab: [place] [facility] [address] [place] [address] Performing Lab: [place] [facility] [address] [place] [address] [place] [facility] URINALYSI S (STL-PB) PH OF URINE BY TEST STRIP 6.0 5.0 - 8.0 09/06 Specimen Type: URINE No comment entered. Ordering Provider: BENY BALTAZAR Report Released Date/Time: Sep 06, 2024 10:46 AM Reporting Lab: [place] [facility] [address] [place] [address] Performing Lab: [place] [facility] [address] [place] [address] [place] [facility] URINALYSI S (STL-PB) LEUKOCYTES [#/AREA] IN URINE SEDIMENT BY MICROSCOPY HIGH POWER FIELD 2 /[HPF] 0 - 5 09/06 Specimen Type: URINE No comment entered. Ordering Provider: BENY BALTAZAR Report Released Date/Time: Sep 06, 2024 10:46 AM Reporting Lab: [place] [facility] [address] [place] [address] Performing Lab: [place] [facility] [address] [place] [address] [place] [facility] URINALYSI S (STL-PB) ERYTHROCYTE S [#/VOLUME] IN URINE SEDIMENT BY MICROSCOPY HIGH POWER FIELD 2 /[HPF] 0 - 5 09/06 Specimen Type: URINE No comment entered. Ordering Provider: BENY BALTAZAR Report Released Date/Time: Sep 06, 2024 10:46 AM Reporting Lab: [place] [facility] [address] [place] [address] Performing Lab: [place] [facility] [address] [place] [address] [place] [facility] URINALYSI S (STL-PB) APPEARANCE OF URINE TURBID 09/06 H Specimen Type: URINE No comment entered. Ordering Provider: BENY BALTAZAR Report Released Date/Time: Sep 06, 2024 10:46 AM Reporting Lab: [place] [facility] [address] [place] [address] Performing Lab: [place] [facility] [address] [place] [address] [place] [facility] URINALYSI S (STL-PB) NITRITE [PRESENCE] IN URINE BY TEST STRIP NEGATIVEm g/dL 09/06 Specimen Type: URINE No comment entered. Ordering Provider: BENY BALTAZAR Report Released Date/Time: Sep 06, 2024 10:46 AM Reporting Lab: [place] [facility] [address] [place] [address] Performing Lab: [place] [facility] [address] [place] [address] [place] [facility] URINALYSI S (STL-PB) MUCUS [PRESENCE] IN URINE SEDIMENT BY LIGHT MICROSCOPY FEW/[LPF] 09/06 H Specimen Type: URINE No comment entered. Ordering Provider: BENY BALTAZAR Report Released Date/Time: Sep 06, 2024 10:46 AM Reporting Lab: [place] [facility] [address] [place] [id number] Performing Lab: [place] [facility] [address] [place] [phone] [place] [facility] URINALYSI S (STL-PB) GLUCOSE [MASS/VOLUM E] IN URINE BY TEST STRIP NORMALmg/ dL 09/06 Specimen Type: URINE No comment entered. Ordering Provider: BENY BALTAZAR Report Released Date/Time: Sep 06, 2024 10:46 AM Reporting Lab: [place] [facility] [address] [place] [phone] Performing Lab: [place] [facility] [address] [place] [address] [place] [facility] URINALYSI S (STL-PB) PROTEIN [MASS/VOLUM E] IN URINE BY TEST STRIP NEGATIVEm g/dL 09/06 Specimen Type: URINE No comment entered. Ordering Provider: BENY BALTAZAR Report Released Date/Time: Sep 06, 2024 10:46 AM Reporting Lab: [place] [facility] [address] [place] [address] Performing Lab: [place] [facility] [address] [place] [address] [place] [facility] URINALYSI S (STL-PB) URN.UROBILI NOGEN NORMALmg/ dL 09/06 Specimen Type: URINE No comment entered. Ordering Provider: BENY BALTAZAR Report Released Date/Time: Sep 06, 2024 10:46 AM Reporting Lab: [place] [facility] [address] [place] [address] Performing Lab: [place] [facility] [address] [place] [address] [place] [facility] URINALYSI S (STL-PB) HEMOGLOBIN [MASS/VOLUM E] IN URINE BY TEST STRIP NEGATIVEm g/dL 09/06 Specimen Type: URINE No comment entered. Ordering Provider: BENY BALTAZAR Report Released Date/Time: Sep 06, 2024 10:46 AM Reporting Lab: [place] [facility] [address] [place] [id number] Performing Lab: [place] [facility] [address] [place] [phone] [place] [facility] URINALYSI S (STL-PB) KETONES [MASS/VOLUM E] IN URINE BY TEST STRIP NEGATIVEm g/dL 09/06 Specimen Type: URINE No comment entered. Ordering Provider: BENY BALTAZAR Report Released Date/Time: Sep 06, 2024 10:46 AM Reporting Lab: [place] [facility] [address] [place] [phone] Performing Lab: [place] [facility] [address] [place] [phone] [place] [facility] URINALYSI S (STL-PB) URN.LEUK.ES T. NEGATIVE 09/06 Specimen Type: URINE No comment entered. Ordering Provider: BENY BALTAZAR Report Released Date/Time: Sep 06, 2024 10:46 AM Reporting Lab: [place] [facility] [address] [place] [address] Performing Lab: [place] [facility] [address] [place] [address] [place] [facility] URINALYSI S (STL-PB) SPECIFIC GRAVITY OF URINE 1.029 1.005 - 1.029 09/06 Specimen Type: URINE No comment entered. Ordering Provider: BENY BALTAZAR Report Released Date/Time: Sep 06, 2024 10:46 AM Reporting Lab: [place] [facility] [address] [place] [address] Performing Lab: [place] [facility] [address] [place] [address] [place] [facility] B12 COBALAMIN (VITAMIN B12) [MASS/VOLUM E] IN SERUM OR PLASMA 447 pg/mL 213 - 816 09/06 Specimen Type: SERUM No comment entered. Ordering Provider: BENY BALTAZAR Report Released Date/Time: Aug 28, 2024 05:26 PM Reporting Lab: [place] [facility] [address] [place] [address] Performing Lab: [place] [facility] [address] [place] [address] [facility] FOLATE (PB) FOLATE [MASS/VOLUM E] IN SERUM OR PLASMA 12.3 ng/mL 7 - 20 09/06 Specimen Type: SERUM No comment entered. Ordering Provider: BENY BALTAZAR Report Released Date/Time: Aug 28, 2024 05:26 PM Reporting Lab: [place] [facility] [address] [place] [address] Performing Lab: [place] [facility] [address] [place] [address] [facility] COMPREHEN SIVE METABOLIC PANEL CREATININE [MASS/VOLUM E] IN SERUM OR PLASMA 0.90 mg/dL 0.7 - 1.3 09/06 Specimen Type: PLASMA No comment entered. Ordering Provider: BENY BALTAZAR Report Released Date/Time: Aug 28, 2024 05:26 PM Reporting Lab: [place] [facility] [address] [place] [address] [place] [address] Performing Lab: [place] [facility] [address] [place] [address] [facility] COMPREHEN SIVE METABOLIC PANEL UREA NITROGEN [MASS/VOLUM E] IN SERUM OR PLASMA 17 mg/dL 9 - 25 09/06 Specimen Type: PLASMA No comment entered. Ordering Provider: BENY BALTAZAR Report Released Date/Time: Aug 28, 2024 05:26 PM Reporting Lab: [place] [facility] [address] [place] [address] Performing Lab: [place] [facility] [address] [place] [address] [facility] COMPREHEN SIVE METABOLIC PANEL GLUCOSE [MASS/VOLUM E] IN SERUM OR PLASMA 108 mg/dL 72 - 99 09/06 H Specimen Type: PLASMA No comment entered. Ordering Provider: BENY BALTAZAR Report Released Date/Time: Aug 28, 2024 05:26 PM Reporting Lab: [place] [facility] [address] [place] [phone] Performing Lab: [place] [facility] [address] [place] [id number] [facility] COMPREHEN SIVE METABOLIC PANEL SODIUM [MOLES/VOLU ME] IN SERUM OR PLASMA 141 meq/L 136 - 145 09/06 Specimen Type: PLASMA No comment entered. Ordering Provider: BENY BALTAZAR Report Released Date/Time: Aug 28, 2024 05:26 PM Reporting Lab: [place] [facility] [address] [place] [phone] Performing Lab: [place] [facility] [address] [place] [id number] [facility] COMPREHEN SIVE METABOLIC PANEL POTASSIUM [MOLES/VOLU ME] IN SERUM OR PLASMA 3.8 meq/L 3.5 - 5 09/06 Specimen Type: PLASMA No comment entered. Ordering Provider: BENY BALTAZAR Report Released Date/Time: Aug 28, 2024 05:26 PM Reporting Lab: [place] [facility] [address] [place] [phone] Performing Lab: [place] [facility] [address] [place] [address] [facility] COMPREHEN SIVE METABOLIC PANEL CHLORIDE [MOLES/VOLU ME] IN SERUM OR PLASMA 107 meq/L 98 - 107 09/06 Specimen Type: PLASMA No comment entered. Ordering Provider: BENY BALTAZAR Report Released Date/Time: Aug 28, 2024 05:26 PM Reporting Lab: [place] [facility] [address] [place] [address] Performing Lab: [place] [facility] [address] [place] [address] [facility] COMPREHEN SIVE METABOLIC PANEL CARBON DIOXIDE, TOTAL [MOLES/VOLU ME] IN SERUM OR PLASMA 24 meq/L 22 - 09/06 Specimen Type: PLASMA No comment entered. Ordering Provider: BENY BALTAZAR Report Released Date/Time: Aug 28, 2024 05:26 PM Reporting Lab: [place] [facility] [address] [place] [address] Performing Lab: [place] [facility] [address] [place] [address] [facility] COMPREHEN SIVE METABOLIC PANEL CALCIUM [MASS/VOLUM E] IN SERUM OR PLASMA 8.9 mg/dL 8.4 - 10.4 09/06 Specimen Type: PLASMA No comment entered. Ordering Provider: BENY BALTAZAR Report Released Date/Time: Aug 28, 2024 05:26 PM Reporting Lab: [place] [facility] [address] [place] [address] Performing Lab: [place] [facility] [address] [place] [address] [facility] COMPREHEN SIVE METABOLIC PANEL PROTEIN [MASS/VOLUM E] IN SERUM OR PLASMA 7.2 g/dL 6 - 8.6 09/06 Specimen Type: PLASMA No comment entered. Ordering Provider: BENY BALTAZAR Report Released Date/Time: Aug 28, 2024 05:26 PM Reporting Lab: [place] [facility] [address] [place] [phone] Performing Lab: [place] [facility] [address] [place] [address] [place] [facility] COMPREHEN SIVE METABOLIC PANEL ALBUMIN [MASS/VOLUM E] IN SERUM OR PLASMA 4.2 g/dL 3.4 - 5 09/06 Specimen Type: PLASMA No comment entered. Ordering Provider: BENY BALTAZAR Report Released Date/Time: Aug 28, 2024 05:26 PM Reporting Lab: [place] [facility] [address] [place] [id number] Performing Lab: [place] [facility] [address] [place] [address] [place] [address] [facility] COMPREHEN SIVE METABOLIC PANEL BILIRUBIN.T OTAL [MASS/VOLUM E] IN SERUM OR PLASMA 0.8 mg/dL 0.2 - 1.2 09/06 Specimen Type: PLASMA No comment entered. Ordering Provider: BENY BALTAZAR Report Released Date/Time: Aug 28, 2024 05:26 PM Reporting Lab: [place] [facility] [address] [place] [phone] Performing Lab: [place] [facility] [address] [place] [address] [facility] COMPREHEN SIVE METABOLIC PANEL ALKALINE PHOSPHATASE [ENZYMATIC ACTIVITY/VO LUME] IN SERUM OR PLASMA 55 U/L 40 - 150 09/06 Specimen Type: PLASMA No comment entered. Ordering Provider: BENY BALTAZAR Report Released Date/Time: Aug 28, 2024 05:26 PM Reporting Lab: [place] [facility] [address] [place] [id number] Performing Lab: [place] [facility] [address] [place] [id number] [facility] COMPREHEN SIVE METABOLIC PANEL ASPARTATE AMINOTRANSF ERASE [ENZYMATIC ACTIVITY/VO LUME] IN SERUM OR PLASMA 16 U/L 5 - 34 09/06 Specimen Type: PLASMA No comment entered. Ordering Provider: BENY BALTAZAR Report Released Date/Time: Aug 28, 2024 05:26 PM Reporting Lab: [place] [facility] [address] [place] [id number] Performing Lab: [place] [facility] [address] [place] [address] [facility] COMPREHEN SIVE METABOLIC PANEL ALANINE AMINOTRANSF ERASE [ENZYMATIC ACTIVITY/VO LUME] IN SERUM OR PLASMA 32 U/L 8 - 40 09/06 Specimen Type: PLASMA No comment entered. Ordering Provider: BENY BALTAZAR Report Released Date/Time: Aug 28, 2024 05:26 PM Reporting Lab: [place] [facility] [address] [place] [address] Performing Lab: [place] [facility] [address] [place] [id number] [facility] COMPREHEN SIVE METABOLIC PANEL GLOMERULAR FILTRATION RATE/1.73 SQ M.PREDICTED [VOLUME RATE/AREA] IN SERUM, PLASMA OR BLOOD BY CREATININE- BASED FORMULA (CKD-EPI 2020) 94 09/06 Specimen Type: PLASMA No comment entered. Ordering Provider: BENY BALTAZAR Report Released Date/Time: Aug 28, 2024 05:26 PM Reporting Lab: [place] [facility] [address] [place] [address] Performing Lab: [place] [facility] [address] [place] [id number] [facility] HGA1C HEMOGLOBIN A1C/HEMOGLO BIN.TOTAL IN BLOOD 5.9 4.0 - 6.0 09/06 Specimen Type: BLOOD No comment entered. Ordering Provider: BENY BALTAZAR Report Released Date/Time: Aug 28, 2024 05:26 PM Reporting Lab: [place] [facility] [address] [place] [address] Performing Lab: [place] [facility] [address] [place] [address] [facility] CBC LEUKOCYTES [#/VOLUME] IN BLOOD BY AUTOMATED COUNT 6.2 10*3/uL 3.6 - 11.2 09/06 Specimen Type: BLOOD No comment entered. Ordering Provider: BENY BALTAZAR Report Released Date/Time: Aug 28, 2024 05:26 PM Reporting Lab: [place] [facility] [address] [place] [address] Performing Lab: [place] [facility] [address] [place] [facility] [facility] CBC ERYTHROCYTE S [#/VOLUME] IN BLOOD BY AUTOMATED COUNT 5.58 10*6/uL 4.10 - 5.70 09/06 Specimen Type: BLOOD No comment entered. Ordering Provider: BENY BALTAZAR Report Released Date/Time: Aug 28, 2024 05:26 PM Reporting Lab: [place] [facility] [address] [place] [id number] Performing Lab: [place] [facility] [address] [place] [address] [facility] CBC HEMOGLOBIN [MASS/VOLUM E] IN BLOOD 15.5 g/dL 13.1 - 16.8 09/06 Specimen Type: BLOOD No comment entered. Ordering Provider: BENY BALTAZAR Report Released Date/Time: Aug 28, 2024 05:26 PM Reporting Lab: [place] [facility] [address] [place] [id number] Performing Lab: [place] [facility] [address] [place] [address] [facility] CBC HEMATOCRIT [VOLUME FRACTION] OF BLOOD 46.8 38.2 - 48.4 09/06 Specimen Type: BLOOD No comment entered. Ordering Provider: BENY BALTAZAR Report Released Date/Time: Aug 28, 2024 05:26 PM Reporting Lab: [place] [facility] [address] [place] [id number] Performing Lab: [place] [facility] [address] [place] [id number] [facility] CBC MCV [ENTITIC VOLUME] BY AUTOMATED COUNT 83.9 fL 80.0 - 100.0 09/06 Specimen Type: BLOOD No comment entered. Ordering Provider: BENY BALTAZAR Report Released Date/Time: Aug 28, 2024 05:26 PM Reporting Lab: [place] [facility] [address] [place] [id number] Performing Lab: [place] [facility] [address] [place] [id number] [facility] CBC MCH [ENTITIC MASS] BY AUTOMATED COUNT 27.8 pg 27.0 - 34.0 09/06 Specimen Type: BLOOD No comment entered. Ordering Provider: BENY BALTAZAR Report Released Date/Time: Aug 28, 2024 05:26 PM Reporting Lab: [place] [facility] [address] [place] [id number] Performing Lab: [place] [facility] [address] [place] [id number] [facility] CBC MCHC [MASS/VOLUM E] BY AUTOMATED COUNT 33.1 g/dL 33.0 - 36.0 09/06 Specimen Type: BLOOD No comment entered. Ordering Provider: BENY BALTAZAR Report Released Date/Time: Aug 28, 2024 05:26 PM Reporting Lab: [place] [facility] [address] [place] [id number] Performing Lab: [place] [facility] [address] [place] [id number] [facility] CBC PLATELETS [#/VOLUME] IN BLOOD BY AUTOMATED COUNT 199 10*3/uL 150 - 400 09/06 Specimen Type: BLOOD No comment entered. Ordering Provider: BENY BALTAZAR Report Released Date/Time: Aug 28, 2024 05:26 PM Reporting Lab: [place] [facility] [address] [place] [id number] Performing Lab: [place] [facility] [address] [place] [id number] [facility] CBC PLATELET MEAN VOLUME [ENTITIC VOLUME] IN BLOOD BY AUTOMATED COUNT 12.5 fL 7.5 - 11.2 09/06 H Specimen Type: BLOOD No comment entered. Ordering Provider: BENY BALTAZAR Report Released Date/Time: Aug 28, 2024 05:26 PM Reporting Lab: [place] [facility] [address] [place] [id number] Performing Lab: [place] [facility] [address] [place] [address] [facility] CBC ERYTHROCYTE DISTRIBUTIO N WIDTH [RATIO] BY AUTOMATED COUNT 13.2 11.8 - 15.1 09/06 Specimen Type: BLOOD No comment entered. Ordering Provider: BENY BALTAZAR Report Released Date/Time: Aug 28, 2024 05:26 PM Reporting Lab: [place] [facility] [address] [place] [address] Performing Lab: [place] [facility] [address] [place] [address] [facility] CBC LYMPHOCYTES /100 LEUKOCYTES IN BLOOD BY AUTOMATED COUNT 23.7 09/06 Specimen Type: BLOOD No comment entered. Ordering Provider: BENY BALTAZAR Report Released Date/Time: Aug 28, 2024 05:26 PM Reporting Lab: [place] [facility] [address] [place] [id number] Performing Lab: [place] [facility] [address] [place] [address] [facility] CBC MONOCYTES/1 00 LEUKOCYTES IN BLOOD BY AUTOMATED COUNT 8.7 09/06 Specimen Type: BLOOD No comment entered. Ordering Provider: BENY BALTAZAR Report Released Date/Time: Aug 28, 2024 05:26 PM Reporting Lab: [place] [facility] [address] [place] [id number] Performing Lab: [place] [facility] [address] [place] [address] [facility] CBC NEUTROPHILS /100 LEUKOCYTES IN BLOOD BY AUTOMATED COUNT 65.4 09/06 Specimen Type: BLOOD No comment entered. Ordering Provider: BENY BALTAZAR Report Released Date/Time: Aug 28, 2024 05:26 PM Reporting Lab: [place] [facility] [address] [place] [id number] Performing Lab: [place] [facility] [address] [place] [address] [facility] CBC EOSINOPHILS /100 LEUKOCYTES IN BLOOD BY AUTOMATED COUNT 1.0 09/06 Specimen Type: BLOOD No comment entered. Ordering Provider: BENY BALTAZAR Report Released Date/Time: Aug 28, 2024 05:26 PM Reporting Lab: [place] [facility] [address] [place] [address] Performing Lab: [place] [facility] [address] [place] [address] [facility] CBC BASOPHILS/1 00 LEUKOCYTES IN BLOOD BY AUTOMATED COUNT 0.6 09/06 Specimen Type: BLOOD No comment entered. Ordering Provider: BENY BALTAZAR Report Released Date/Time: Aug 28, 2024 05:26 PM Reporting Lab: [place] [facility] [address] [place] [address] Performing Lab: [place] [facility] [address] [place] [address] [facility] CBC LYMPHOCYTES [#/VOLUME] IN BLOOD BY AUTOMATED COUNT 1.48 10*3/uL 0.77 - 4.50 09/06 Specimen Type: BLOOD No comment entered. Ordering Provider: BENY BALTAZAR Report Released Date/Time: Aug 28, 2024 05:26 PM Reporting Lab: [place] [facility] [address] [place] [address] Performing Lab: [place] [facility] [address] [place] [address] [facility] CBC MONOCYTES [#/VOLUME] IN BLOOD BY AUTOMATED COUNT 0.54 10*3/uL 0.19 - 0.8 09/06 Specimen Type: BLOOD No comment entered. Ordering Provider: BENY BALTAZAR Report Released Date/Time: Aug 28, 2024 05:26 PM Reporting Lab: [place] [facility] [address] [place] [address] Performing Lab: [place] [facility] [address] [place] [address] [facility] CBC NEUTROPHILS [#/VOLUME] IN BLOOD BY AUTOMATED COUNT 4.08 10*3/uL 2.10 - 8.00 09/06 Specimen Type: BLOOD No comment entered. Ordering Provider: BENY BALTAZAR Report Released Date/Time: Aug 28, 2024 05:26 PM Reporting Lab: [place] [facility] [address] [place] [address] Performing Lab: [place] [facility] [address] [place] [address] [facility] CBC EOSINOPHILS [#/VOLUME] IN BLOOD BY AUTOMATED COUNT 0.06 10*3/uL 0.00 - 0.60 09/06 Specimen Type: BLOOD No comment entered. Ordering Provider: BENY BALTAZAR Report Released Date/Time: Aug 28, 2024 05:26 PM Reporting Lab: [place] [facility] [address] [place] [address] Performing Lab: [place] [facility] [address] [place] [address] [facility] CBC BASOPHILS [#/VOLUME] IN BLOOD BY AUTOMATED COUNT 0.04 10*3/uL 0.00 - 0.20 09/06 Specimen Type: BLOOD No comment entered. Ordering Provider: BENY BALTAZAR Report Released Date/Time: Aug 28, 2024 05:26 PM Reporting Lab: [place] [facility] [address] [place] [address] Performing Lab: [place] [facility] [address] [place] [address] [facility] CBC IMMATURE GRANULOCYTE S/100 LEUKOCYTES IN BLOOD BY AUTOMATED COUNT 0.6 09/06 Specimen Type: BLOOD No comment entered. Ordering Provider: BENY BALTAZAR Report Released Date/Time: Aug 28, 2024 05:26 PM Reporting Lab: [place] [facility] [address] [place] [address] Performing Lab: [place] [facility] [address] [place] [address] [facility] CBC IMMATURE GRANULOCYTE S [#/VOLUME] IN BLOOD BY AUTOMATED COUNT 0.04 10*3/uL 0.00 - 0.05 09/06 Specimen Type: BLOOD No comment entered. Ordering Provider: BENY BALTAZAR Report Released Date/Time: Aug 28, 2024 05:26 PM Reporting Lab: [place] [facility] [address] [place] [id number] Performing Lab: [place] [facility] [address] [place] [id number] [facility] VITAMIN D, 25-HYDROX Y 25-HYDROXYV ITAMIN D3 [MASS/VOLUM E] IN SERUM OR PLASMA 31.5 ng/mL 30 - 96 09/06 Specimen Type: SERUM No comment entered. Ordering Provider: BENY BALTAZAR Report Released Date/Time: Aug 28, 2024 05:26 PM Reporting Lab: [place] [facility] [address] [place] [address] Performing Lab: [place] [facility] [address] [place] [address] [facility] CHOLESTER OL PANEL (PB) CHOLESTEROL [MASS/VOLUM E] IN SERUM OR PLASMA 166 mg/dL 0 - 200 09/06 Specimen Type: PLASMA No comment entered. Ordering Provider: BENY BALTAZAR Report Released Date/Time: Aug 28, 2024 05:26 PM Reporting Lab: [place] [facility] [address] [place] [address] Performing Lab: [place] [facility] [address] [place] [address] [facility] CHOLESTER OL PANEL (PB) TRIGLYCERID E [MASS/VOLUM E] IN SERUM OR PLASMA 220 mg/dL 0 - 150 09/06 H Specimen Type: PLASMA No comment entered. Ordering Provider: BENY BALTAZAR Report Released Date/Time: Aug 28, 2024 05:26 PM Reporting Lab: [place] [facility] [address] [place] [address] Performing Lab: [place] [facility] [address] [place] [address] [facility] CHOLESTER OL PANEL (PB) CHOLESTEROL IN LDL [MASS/VOLUM E] IN SERUM OR PLASMA BY CALCULATION 88.0 mg/dL 09/06 Specimen Type: PLASMA No comment entered. Ordering Provider: BENY BALTAZAR Report Released Date/Time: Aug 28, 2024 05:26 PM Reporting Lab: [place] [facility] [address] [place] [address] Performing Lab: [place] [facility] [address] [place] [address] [facility] CHOLESTER OL PANEL (PB) CHOLESTEROL IN HDL [MASS/VOLUM E] IN SERUM OR PLASMA 34.0 mg/dL 40 09/06 L Specimen Type: PLASMA No comment entered. Ordering Provider: BENY BALTAZAR Report Released Date/Time: Aug 28, 2024 05:26 PM Reporting Lab: [place] [facility] [address] [place] [address] Performing Lab: [place] [facility] [address] [place] [address] [facility] CHOLESTER OL PANEL (PB) CHOLESTEROL IN HDL/CHOLEST ANEL.TOTAL [MASS RATIO] IN SERUM OR PLASMA 20.5 25 09/06 Specimen Type: PLASMA No comment entered. Ordering Provider: BENY BALTAZAR Report Released Date/Time: Aug 28, 2024 05:26 PM Reporting Lab: [place] [facility] [address] [place] [address] Performing Lab: [place] [facility] [address] [place] [address] [facility] PROST. SPECIFIC AG.(PB-ST L) PROSTATE SPECIFIC AG [MASS/VOLUM E] IN SERUM OR PLASMA 3.06 ng/mL 0 - 4 09/06 Specimen Type: SERUM No comment entered. Ordering Provider: BENY BALTAZAR Report Released Date/Time: Aug 28, 2024 05:26 PM Reporting Lab: [place] [facility] [address] [place] [address] Performing Lab: [place] [facility] [address] [place] [address] [facility] Vital Signs Combined list of inpatient and outpatient Vital Signs from Department of Defense and Veterans Affairs, ranging from 12 months to all on record, depending upon the facility. Vital Sign Value Date Comments Source SYSTOLIC BLOOD PRESSURE 133 12/08/2024 11:28:00 [place] [place] DIASTOLIC BLOOD PRESSURE 82 12/08/2024 11:28:00 [place] [place] TEMPERATURE 98.1 12/08/2024 11:28:00 [place] [facility] PULSE 78 12/08/2024 11:28:00 [place] [facility] SYSTOLIC BLOOD PRESSURE 128 09/15/2024 09:38:00 [place] [facility] DIASTOLIC BLOOD PRESSURE 79 09/15/2024 09:38:00 [place] [facility] PULSE OXIMETRY 96 09/15/2024 09:38:00 [place] [facility] WEIGHT 213.5 09/15/2024 09:38:00 [place] [facility] BMI 30 kg/m2 09/15/2024 09:38:00 [place] [place] PAIN 7 09/15/2024 09:38:00 [place] [facility] TEMPERATURE 97.7 09/15/2024 09:38:00 [place] [facility] PULSE 56 09/15/2024 09:38:00 [place] [facility] RESPIRATION 20 09/15/2024 09:38:00 [place] [facility] SYSTOLIC BLOOD PRESSURE 143 09/07/2024 08:38:00 [place] [facility] DIASTOLIC BLOOD PRESSURE 81 09/07/2024 08:38:00 [place] [facility] PULSE OXIMETRY 97 09/07/2024 08:38:00 [place] [facility] WEIGHT 214.8 09/07/2024 08:38:00 [place] [facility] BMI 30 kg/m2 09/07/2024 08:38:00 [place] [place] PAIN 6 09/07/2024 08:38:00 [place] [facility] TEMPERATURE 97.6 09/07/2024 08:38:00 [place] PULSE 56 09/07/2024 08:38:00 [place] [place] [facility] RESPIRATION 20 09/07/2024 08:38:00 [place] [facility] Encounters Combined list of: 1) Encounters from Department of Veterans Affairs facilities going backup to the last 18 months, not all VA inpatient encounters are included; 2) Encounters from the Department of Defense facilities going backup to 280 months. Location Location Details Encounter Type Encounter Number Reason For Visit Attending Provider ADM Date DC Date Status Disposition Source [facility] Outpatient Encounter [id number] 09/01 [facility] Outpatient Encounter [id number] 09/02 [facility] Outpatient Encounter [id number] Brad VASQUEZ 09/03 [facility] OFFICE O/P EST MOD 30 MIN [id number] Diagnos is: ICD-10- CM E78.5 Hyperli pidemia , unspeci fied Brad VASQUEZ 09/08 [facility] Outpatient Encounter [id number] 09/09 [facility] [place] [facility] Outpatient Encounter [id number] [facility] [id number] 09/30 [facility] Outpatient Encounter [id number] [facility] Outpatient Encounter [id number] [facility] Outpatient Encounter [id number] 10/14 [facility] OFF/OP EST DECEMBER X REQ PHY/QHP [id number] Diagnos is: ICD-10- CM L60.0 Ingrowi JUAN Milian 10/20 [facility] OFFICE O/P EST MOD 30 MIN [id number] Diagnos is: ICD-10- CM B35.1 BENY Gerrado 10/20 [facility] Outpatient Encounter [id number] 10/27 [facility] Outpatient Encounter [id number] 10/27 [facility] Outpatient Encounter [id number] 10/28 [facility] [id number] 10/28 [facility] En[facility] [id number] 11/09 [facility] Outpatient Encounter [id number] 11/10 [facility] [id number] 12/08 [facility] Outpatient Encounter [id number] 12/19 [facility] Out[facility] Encounter [id number] 12/22 [facility] Outpatient Encounter [id number] 12/22 [facility] Outpatient Encounter [id number] 12/26 [facility] Outpatient Encounter [id number] 12/27 [facility] Outpatient Encounter [id number] 12/29 [facility] Outpatient Encounter [id number] 01/03 [facility] Encounter [id number] 01/03 [facility] En[facility] [id number] 01/05 [facility] Encounter [id number] 01/11 [facility] Out[facility] Encounter [id number] 01/12 [facility] Out[facility] Encounter [id number] 01/25 [facility] Outpatient Encounter [id number] 01/26 [facility] Outpatient Encounter [id number] 01/26 [facility] Outpatient Encounter [id number] 02/09 [facility] En[facility] [id number] 02[facility] Out[facility] Encounter [id number] 03/02 [facility] Outpatient Encounter [id number] 03/[address] [facility] Encounter [id number] 03/23 [facility] Outpatient Encounter [id number] 04/06 [facility] Outpatient Encounter [id number] 04/[address] [facility] Out[facility] Encounter [id number] 04/21 [facility] Outpatient Encounter [id number] 05/04 [facility] Outpatient Encounter [id number] 05/19 [facility] Encounter [id number] 05/25 [facility] Outpatient Encounter [id number] 05/30 [facility] Outpatient Encounter [id number] 06/08 [facility] Outpatient Encounter [id number] VARGAS MONGE T 06/22 [facility] Outpatient Encounter [id number] 06/22 [facility] Encounter [id number] 06/28 [facility] [place] [facility] Outpatient Encounter [id number] 07[facility] Out[facility] Encounter [id number] 07/18 [facility] Encounter [id number] 07/26 [facility] Outpatient Encounter [id number] 08/03 [facility] Encounter [id number] 08/03 [facility] Encounter [id number] 08/07 [facility] Outpatient Encounter [id number] 08/28 [facility] Encounter [id number] 08/31 [facility] Out[facility] Encounter [id number] 09/04 [facility] OFFICE O/P EST MOD 30 MIN [id number] Diagnos is: ICD-10- CM Z00.01 Encount er for general adult medical exam w helioa shawn munoz BENY Stark 09/07 [facility] Outpatient Encounter [id number] 09/08 [facility] Outpatient Encounter [id number] 09/11 [facility] CB OFF/OP EST MAY X REQ PHY/QHP [id number] Diagnos is: ICD-10- CM I10 Essenti al (primar y) hyperte nsion EVELIA NOVOA D 09/15 [facility] Outpatient Encounter [id number] 3 09/21 [facility] Outpatient Encounter [id number] 09/29 [facility] Outpatient Encounter [id number] 10/12 [facility] PH1 ASSMT&MGMT NQHP 21-30 [id number] Diagnos is: ICD-10- CM G47.30 Sleep apnea, unspeci fied JHON PALOMINO 10/13 [facility] Outpatient Encounter [id number] 10/17 [facility] Outpatient Encounter [id number] 10/17 [facility] Outpatient Encounter [id number] 10/18 [facility] Outpatient Encounter [id number] 10/19 [facility] Outpatient Encounter [id number] 10/23 [facility] THERAPEUTI C EXERCISES [id number] Diagnos is: ICD-10- CM M54.32 Sciatic a, left side BRANDI SRINIVASAN A 10/23 [facility] Outpatient Encounter [id number] 11/01 [facility] Encounter [id number] 11/01 [facility] Encounter [id number] 11/02 [facility] Outpatient Encounter [id number] 11/07 [facility] N [facility] Outpatient Encounter [id number] 11/13 [facility] Outpatient Encounter [id number] 11/16 [facility] Outpatient Encounter [id number] 11/17 [facility] Outpatient Encounter [id number] 11/30 [facility] Outpatient Encounter [id number] 11/30 [facility] PH1 ASSMT&MGMT NQHP 21-30 [id number] Diagnos is: ICD-10- CM G47.30 Sleep apnea, unspeci fied JHON PALOMINO 12/01 [facility] Outpatient Encounter [id number] 12/01 [facility] OFF/OP EST DECEMBER X REQ PHY/QHP [id number] Diagnos is: ICD-10- CM H92.03 Catylkavin [place] al CUSTRED,TO RRI J 12/08 [facility] Outpatient Encounter [id number] 12/08 [facility] Outpatient Encounter [id number] 2 12/14 [facility] Outpatient Encounter [id number] 2 12/15 [facility] Outpatient Encounter [id number] 12/15 [facility] Outpatient Encounter [id number] 12/18 [facility] NDL INSJ W/O NJX 3+ MUSC [id number] Diagnos is: ICD-10- CM M54.32 Sciatic a, left side BRANDI SRINIVASAN A 01/05 [facility] Outpatient Encounter [id number] 3 01/11 [facility] Outpatient Encounter [id number] 01/18 [facility] Social History Combined list of available smoking, tobacco, and other social history from Department of Defense and Veterans Affairs facilities. Social History Type Response Date Comment Sourc e Tobacco smoking status NHIS VA-TOBACCO FORMER USER 09/08/2023 [facility] History of tobacco use VA-TOBACCO QUIT < 1 YEAR 09/08/2023 [facility] History of tobacco use VA-TOBACCO USER E VERY DAY 09/08/2022 [facility] History of tobacco use VA-TOBACCO NEVER USED 09/08/2021 [facility] History of tobacco use VA-TOBACCO FORMER USER 09/10/2020 [facility] History of tobacco use UT-TOBACCO QUIT 1 TO < 5 YRS 09/07/2019 [facility] This section is an empty social history section. DoD Plan of Care List of future care activities from Department of Veterans Affairs facilities. Additional future care activities may be listed in the Assessment and Plan section. Date/Time Care Activity Care Activity Detail Facili ty 02/07/2025 AMBULATORY - MEDICINE AMBULATORY - MEDICI [facility]
--- OUTSIDE RECORDS SUMMARY | 2025-02-07 05:40 | XMS_ITS | Patient Health Record ---
Author Organization [employer] Address [address] [place] [address] Care Team Providers Care Hunting Sales Leader Name Role Phone [facility] Lorenzo RUSHING Primary Care Provider Un available HOPPER BANDAR Unavailable [phone] Ac Calderón Unavailable Unavailable RANDOLPH DIANE Unavailable [phone] Allergies No Known Allergies Reason For Referral No Information Medications Medication SIG (Take, Route, Frequency, Duration) Notes Start Date End Date Status Finasteride 5 MG 1 tablet Orally Once a day Active Tamsulosin HCl 0.4 MG 1 capsule Orally O nce a day Active Rosuvastatin Calcium 10 MG 1 tablet Oral ly Once a day Active Social History Tobacco Use: Social History Observation Description Date Details (start date - stop date) Former Smoker NA - NA Tobacco Control (Standard) Question Answer Notes Tobacco use: Former smoker Problems Problem Type SNOMED Code ICD Code Onset Dates Problem Status W/U Status Risk Notes Problem 171234422 Gross hematuria (R31.0) Active confirmed Problem BPH (benign prostatic hyperplasia) (N40.0) Active confirmed Problem 427070840 Elevated PSA (R97.20) Active confirmed Problem 666776505 Urinary retention (R33.9) Active confirmed Problem 034257293 Benign prostatic hyperplasia, unspecified whether lower urinary tract symptoms present (N40.0) Active confirmed Problem Spermatocele (56684640) Spermatocele (N43.40) Active confirmed Encounters Encounter Location Date Provider Diagnosis [employer] [address] [place] [address] 05/30/2024 RANDOLPH DIANE Elevated PSA R97.20 [employer] [address] [place] [address] 06/05/2024 RANDOLPH DIANE Prostate cancer screening Z12.5 [facility], [facility] [address] [place] [address] 07/24/2024 RANDOLPH DIANE Assessments Encounter Date Diagnosis (ICD Code) Assessment Notes Treatment Notes Treatment Clinical Notes Section Notes 06/05/2024 Prostate cancer screening (ICD-10 - Z12.5) 05/30/2024 Elevated PSA (ICD-10 - R97.20) Plan Of Treatment Pending Test Test Name Order Date Ultrasound : Testicle / Scrotum 15012 PSA Diagnostic--[id number] 10/29/2022 Bladder Scan 01/12/2024 PSA-Diagnostic 05/30/2024 Next Appt Details Provider Name:RANDOLPH Salinas, 02/07/2025 11:00:00 AM, [address] [facility] [place], [address], Insurance Providers Payer Name Payer Address Payer Phone Subscriber Number Group Number Insured Name Patient Relationship to Insured Coverage Start Date Coverage End Date [employer]UM [address] [place], [place] [id number] Randolph Collazo Self - patient is the insured Medical (General) History Medical History History ICD Code gross hematuria BPH with LUTS Elevated PSA Spermatocele anxiety disorder hyperlipidemia sleep apnea Surgical History Surgery Date(Month/Year) Vasectomy
--- OUTSIDE RECORDS SUMMARY | 2025-02-07 05:40 | XMS_ITS | Clinical Summary ---
Author Organization [facility] Address [address] [place] [address] Care Team Providers Care Cooperage Shop Supervisor Name Role Phone Unavailable Primary Care Provider Unavailabl e Medications finasteride (PROSCAR) 5 mg tablet Take 5 mg by mouth daily. Active tamsulosin (FLOMAX) 0.4 mg capsule Take 0.4 mg by mouth daily. Active Active Problems No known active problems Social History Tobacco Use Types Packs/Day Years Used Date Smoking Tobacco: Never Assessed Sex and Gender Information Value Date Recorded Sex Assigned at Not on file Legal Sex Male 10:43 AM CDT Gender Identity Not on file Sexual Orientation Not on file Plan of Treatment Health Maintenance Due Date Last Done Comments COLORECTAL SCREENING 2003 Colorectal Cancer Screening 2003 FIT-DNA Q 3 years 2003 FIT/FOBT Q 1 year 2003 Flex Sig/CT Colonography Q 5 years 2003 PNEUMOCOCCAL VACCINE 50+ YEA RS (1 of 1 - PCV) 2008 INFLUENZA VACCINE (#1) 2024 3, 05/27/2022, 05/20/2021, Additional history exists DTAP/TDAP/TD VACCINES (2 - T d or Tdap) 05/27/2032 05/27/2022 RSV VACCINE (60+ or ) (1 - 1-dose 75+ series) 2033 ZOSTER VACCINE Completed 12/03/2021, 07/17/2021 Insurance [facility] [place] [employer]
--- NOTE | 2025-02-07 05:56 | W.ED.ABDPA2 ---
Documented by User: Elder Crowder MD 02/07/25 06:00 HPI - Abdominal Pain General: Chief Complaint: Abdominal Pain Stated Complaint: ABD Rt Side Pain Time Seen by Provider: 02/07/25 05:50 History of Present Illness: Patient presents with gradual onset of left lower abdominal pain over the last 12 hrs. The pain reportedly began gradually, with the patient going to bed feeling well and waking up with pain that worsened over time. The pain is described as severe and is localized to a specific spot on the left side, which is reproducible and worsens with movement and palpation. The patient denies any prior similar episodes and has never experienced this type of pain before. There is no associated nausea or vomiting. The patient reports being physically active, regularly walking, going to the gym, and playing golf. No recent trauma was mentioned, but the patient considered the possibility of a muscle strain. The patient has a history of arthritis and receives care from a physical therapist and chiropractor. No prior abdominal surgeries. The patient is followed by a urologist for PSA monitoring and has a semiannual checkup scheduled. No urinary symptoms or other associated complaints were discussed. Related Data Home Medications ?Medication ?Instructions ?Recorded ?Confirmed omega 9-aej-cjq-fish oil 100 cap PO DAILY 01/20/22 10/29/23 mg-160 mg-1,000 mg capsule (Fish Oil) Previous Rx's ?Medication ?Instructions ?Recorded carvedilol 3.125 mg tablet 3.125 mg PO BID #60 tabs 05/22/21 finasteride 5 mg tablet 5 mg PO QAM #90 tabs 11/21/21 tamsulosin 0.4 mg capsule See Rx Instructions .Route 11/02/22 .COMPLEX #90 caps orthotic shoes with L3020 inserts #1 ea 10/29/23 ciprofloxacin HCl 500 mg tablet 500 mg PO BID 10 days #20 tabs 02/07/25 hydrocodone 5 mg-acetaminophen 325 1 tab PO Q6H PRN pain #20 tabs 02/07/25 mg tablet metronidazole 500 mg tablet 500 mg PO Q8H 10 days #30 tabs 02/07/25 ondansetron 4 mg disintegrating 4 mg PO Q8H PRN nausea and 02/07/25 tablet vomiting #10 tabs polyethylene glycol 3350 17 17 g PO DAILY #510 grams 02/07/25 gram/dose oral powder (Miralax) Allergies Allergy/AdvReac Type Severity Reaction Status Date / Time No Known Allergies Allergy Verified 10/29/23 07:54 PFSH ED PFSH: Medical History Hyperlipidemia Anxiety Benign prostatic hyperplasia with lower urinary tract symptoms Urinary retention Erectile dysfunction Elevated PSA Surgical History Status post colonoscopy History of amputation of finger H/O prostate biopsy Family History Mother , IN HER 60'S COPD (chronic obstructive pulmonary disease) Lung disease Father Prostate cancer Cancer Denies family history of Diabetes CAD (coronary artery disease) Clotting disorder Dementia Chronic kidney disease (CKD) Suicide Anesthesia complication Bleeding disorder Stroke Social History Smoking and tobacco/nicotine status: never used tobacco/nicotine Alcohol intake: current Alcohol intake frequency: holidays/special occasions only Substance/Drug Use: never Adopted: No Caregiver/support person: No Lives independently: No Household members: spouse Marital status: Current occupational status: employed 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 Current gender identity: Male Physical Exam Const: COMMON NORMALS: no acute distress, patient oriented x3 and alert HENMT: COMMON NORMALS: normocephalic and atraumatic HEAD & SCALP: normocephalic and atraumatic Eye: COMMON NORMALS: Equal, round and reactive pupils present, EOMs intact bilaterally and no scleral icterus PUPIL: Yes Equal, round and reactive pupils present Resp: COMMON NORMALS: normal respiratory effort and No retractions Cardio: COMMON NORMALS: regular rate, regular rhythm and No murmurs present (Cardio) RATE: regular rate RHYTHM: regular rhythm GI: OTHER: Focal tenderness of the left lower quadrant reproducible with palpation and with motion. Flexion of the abdominal musculature increases the pain as well. Neuro: COMMON NORMALS: patient oriented x3 SENSORIUM/ORIENTATION: Yes alert Skin: COMMON NORMALS: no rashes or lesions noted GENERAL SKIN EXAM: no rashes or lesions noted Course Vital Signs: Vital signs: Vital Signs Temperature 97.5 F L 02/07/25 05:35 Pulse Rate 73 02/07/25 05:35 Respiratory Rate 18 02/07/25 05:35 Blood Pressure 158/89 02/07/25 05:35 Pulse Oximetry 97 02/07/25 05:35 Oxygen Delivery Me thod Room Air 02/07/25 05:35 MDM - Abdominal Pain Medical Decision Making In summary, patient is a generally well-appearing 64-year-old male seen for gradual onset left lower quadrant abdominal pain. He has a history of ureteral stone, no dysuria, no flank pain, no fever, no nausea or vomiting. He has no history of diverticulitis. Labs and CT scan will be performed. He was given morphine initially for pain. Pertinent details of the case were shared with the oncoming emergency physician who will help facilitate ultimate disposition once labs and CT have been obtained. Lab Data 02/07/25 05:50 02/07/25 05:50 Labs/Radiology: Radiology Impressions Abdomen/Pelvis CT 02/07/25 05:37 IMPRESSION: Mild diverticulitis. COMMENTS: Consistent with the [employer] [employer]'s Incidental Findings Committee white paper (J Am Luis Radiol 2018): Any incidental renal lesion less than 1 cm or classified as too small to characterize, or any incidental cystic renal lesion characterized as simple-appearing, is likely benign. No follow-up imaging is recommended for these lesions per consensus recommendations based on imaging criteria. Laboratory Results WBC 10.97 10^3/uL (3.29-11.43) 02/07/25 05:50 RBC 5.84 10^6/uL (3.85-5.65) H 02/07/25 05:50 Hgb 16.30 g/dL (11.27-16.99) 02/07/25 05:50 Hct 50.0 % (37-53) 02/07/25 05:50 MCV 85.6 fl (82-101) 02/07/25 05:50 MCH 27.9 pg (27-33) 02/07/25 05:50 MCHC 32.6 g/dL (30-55) 02/07/25 05:50 RDW 13.2 % (12.1-15.1) 02/07/25 05:50 Plt Count 220 10^3/cmm (157-399) 02/07/25 05:50 MPV 11.1 fL (7.4-10.4) H 02/07/25 05:50 Neut % (Auto) 74.7 % 02/07/25 05:50 Lymph % (Auto) 14.4 % 02/07/25 05:50 [place] % (Auto) 9.5 % 02/07/25 05:50 Eos % (Auto) 0.5 % 02/07/25 05:50 Baso % (Auto) 0.4 % 02/07/25 05:50 Neut # (Auto) 8.19 10^3/uL (1.8-7.7) H 02/07/25 05:50 Lymph # (Auto) 1.6 10^3/uL (0.8-4.8) 02/07/25 05:50 [place] # (Auto) 1.0 10^3/uL (0.2-0.9) H 02/07/25 05:50 Eos # (Auto) 0.1 10^3/uL (0.0-0.8) 02/07/25 05:50 Baso # (Auto) 0.0 10^3/uL (0.0-0.1) 02/07/25 05:50 Nucleated RBC % (auto) 0 % 02/07/25 05:50 Nucleated RBCs # 0.0 /100WBC 02/07/25 05:50 Sodium 139 mmol/L (136-145) 02/07/25 05:50 Potassium 4.4 mmol/L (3.5-5.1) 02/07/25 05:50 Chloride 102 mmol/L (98-107) 02/07/25 05:50 Carbon Dioxide 26 mmol/L (22-29) 02/07/25 05:50 Anion Gap 15.4 (5-19) 02/07/25 05:50 BUN 17 mg/dL (8-23) 02/07/25 05:50 Creatinine 0.9 mg/dL (0.7-1.2) 02/07/25 05:50 GFR Calculation 84.4 mL/min (90-130) L 02/07/25 05:50 Glucose 126 mg/dL (65-115) H 02/07/25 05:50 Calculated Osmolality 291 mOsm/kg (285-295) 02/07/25 05:50 Calcium 9.1 mg/dL (8.5-10.5) 02/07/25 05:50 Total Bilirubin 0.8 mg/dL (0.15-1.2) 02/07/25 05:50 AST 15 U/L (0-40) 02/07/25 05:50 ALT 18 U/L (0-41) 02/07/25 05:50 Alkaline Phosphatase 70 U/L (40-130) 02/07/25 05:50 Total Protein 7.6 g/dL (6.6-8.7) 02/07/25 05:50 Albumin 4.4 g/dL (3.5-5.2) 02/07/25 05:50 Globulin 3.2 g/dL (1.3-4.6) 02/07/25 05:50 Lipase 50 U/L (13-60) 02/07/25 05:50 Urine Color Yellow (Yellow) 02/07/25 06:08 Urine Appearance Clear (CLEAR) 02/07/25 06:08 Urine pH 5.0 (5-7) 02/07/25 06:08 Ur Specific [place] 1.032 (1.005-1.030) H 02/07/25 06:08 Urine Protein Negative (Negative) 02/07/25 06:08 Urine Glucose (UA) Negative (Normal) 02/07/25 06:08 Urine Ketones Trace (Negative) 02/07/25 06:08 Urine Blood Trace (Negative) A 02/07/25 06:08 Urine Nitrate Negative (Negative) 02/07/25 06:08 Urine Bilirubin Negative (Negative) 02/07/25 06:08 Urine Urobilinogen 1.0 mg/dL (Negative) 02/07/25 06:08 Ur Leukocyte Esterase Negative (Negative) 02/07/25 06:08 Urine RBC 3-5 /hpf (0-2) 02/07/25 06:08 Urine WBC 0-5 /hpf (0-5) 02/07/25 06:08 Ur Squamous Epith Cells 0-5 /hpf (0-5) 02/07/25 06:08 Amorphous Sediment Not Reportable 02/07/25 06:08 Urine Bacteria None seen /hpf (NONE) 02/07/25 06:08 Hyaline Casts 3.71 /lpf 02/07/25 06:08 Discharge Plan Discharge Patient Disposition: Home Clinical Impression: Diverticulitis Condition: Stable Prescriptions: New hydrocodone-acetaminophen 5-325 mg tablet 1 tab PO Q6H PRN (Reason: pain) Qty: 20 0RF ciprofloxacin HCl 500 mg tablet 500 mg PO BID 10 Days Qty: 20 0RF polyethylene glycol 3350 [Miralax] 17 gram/dose powder 17 g PO DAILY Qty: 510 0RF Rx Instructions: Take 1 scoop daily while taking pain medications. metronidazole 500 mg tablet 500 mg PO Q8H 10 Days Qty: 30 0RF ondansetron 4 mg tablet,disintegrating 4 mg PO Q8H PRN (Reason: nausea and vomiting) Qty: 10 0RF No Action Fish Oil 100-160-1,000 mg capsule PO DAILY (DME) orthotic shoes with L3020 inserts See Rx Instructions .Route .MEDSUPPLY Qty: 1 0RF Rx Instructions: As directed to the shoe martin carvedilol 3.125 mg tablet 3.125 mg PO BID Qty: 60 5RF Rx Instructions: must administer with a meal/food finasteride 5 mg tablet 5 mg PO QAM Qty: 90 3RF tamsulosin 0.4 mg capsule See Rx Instructions .ROUTE .COMPLEX Qty: 90 3RF Dose Instruction: TAKE 1 CAPSULE BY MOUTH DAILY Rx Instructions: TAKE 1 CAPSULE BY MOUTH DAILY Discharge Orders: Discharge ED (Routine); Ordered 02/07/25 Ordered By: Elena Huston Discharge Diet: Usual diet Discharge Activity: Increase activity as tolerated Patient Instructions: Diverticulitis (ED), Opioid Safety, Pain Management, Patient Portal & Ravi Instructions Activity Restrictions/Additional Instructions: Thank you for choosing [facility] for your healthcare needs today. You have been screened and evaluated and felt safe for discharge. Health conditions do change or evolve sometimes and as such it is important that you follow up with your Primary Doctor to be re checked, 3-5 days is a general good time frame for follow up. You are always welcome to return to the ED for re assessment if your symptoms are worsening or you have new concerns Print Language: [place] Coding Level of Care Code ED Automobile Or Truck Rental Dispatcher for Chg Fwd Documented by User: Elena Huston MD 02/07/25 07:26 HPI - Abdominal Pain General: Chief Complaint: Abdominal Pain Stated Complaint: ABD Rt Side Pain Time Seen by Provider: 02/07/25 05:50 Related Data Home Medications ?Medication ?Instructions ?Recorded ?Confirmed omega 1-cmj-pio-fish oil 100 cap PO DAILY 01/20/22 10/29/23 mg-160 mg-1,000 mg capsule (Fish Oil) Previous Rx's ?Medication ?Instructions ?Recorded carvedilol 3.125 mg tablet 3.125 mg PO BID #60 tabs 05/22/21 finasteride 5 mg tablet 5 mg PO QAM #90 tabs 11/21/21 tamsulosin 0.4 mg capsule See Rx Instructions .Route 11/02/22 .COMPLEX #90 caps orthotic shoes with L3020 inserts #1 ea 10/29/23 ciprofloxacin HCl 500 mg tablet 500 mg PO BID 10 days #20 tabs 02/07/25 hydrocodone 5 mg-acetaminophen 325 1 tab PO Q6H PRN pain #20 tabs 02/07/25 mg tablet metronidazole 500 mg tablet 500 mg PO Q8H 10 days #30 tabs 02/07/25 ondansetron 4 mg disintegrating 4 mg PO Q8H PRN nausea and 02/07/25 tablet vomiting #10 tabs polyethylene glycol 3350 17 17 g PO DAILY #510 grams 02/07/25 gram/dose oral powder (Miralax) Allergies Allergy/AdvReac Type Severity Reaction Status Date / Time No Known Allergies Allergy Verified 10/29/23 07:54 PFSH ED PFSH: Medical History Hyperlipidemia Anxiety Benign prostatic hyperplasia with lower urinary tract symptoms Urinary retention Erectile dysfunction Elevated PSA Surgical History Status post colonoscopy History of amputation of finger H/O prostate biopsy Family History Mother , IN HER 60'S COPD (chronic obstructive pulmonary disease) Lung disease Father Prostate cancer Cancer Denies family history of Diabetes CAD (coronary artery disease) Clotting disorder Dementia Chronic kidney disease (CKD) Suicide Anesthesia complication Bleeding disorder Stroke Social History Smoking and tobacco/nicotine status: never used tobacco/nicotine Alcohol intake: current Alcohol intake frequency: holidays/special occasions only Substance/Drug Use: never Adopted: No Caregiver/support person: No Lives independently: No Household members: spouse Marital status: Current occupational status: employed 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 He has a history of ureteral stone, no dysuria, no flank pain, no fever, no nausea or vomiting. He has no history of diverticulitis. Labs and CT scan will be performed. He was given morphine initially for pain. Pertinent details of the case were shared with the oncoming emergency physician who will help facilitate ultimate disposition once labs and CT have been obtained. Patient care transitioned me at shift change awaiting lab work and CT scan. Lab work is unremarkable. CT scan shows mild diverticulitis consistent with workup, physical exam. Patient given Dilaudid as morphine did not work. First dose of Cipro and Flagyl here. Prescriptions written. Patient discharged. Lab Data 02/07/25 05:50 02/07/25 05:50 Labs/Radiology: Radiology Impressions Abdomen/Pelvis CT 02/07/25 05:37 IMPRESSION: Mild diverticulitis. COMMENTS: Consistent with the [employer] [employer]'s Incidental Findings Committee white paper (J Am Luis Radiol 2018): Any incidental renal lesion less than 1 cm or classified as too small to characterize, or any incidental cystic renal lesion characterized as simple-appearing, is likely benign. No follow-up imaging is recommended for these lesions per consensus recommendations based on imaging criteria. Laboratory Results WBC 10.97 10^3/uL (3.29-11.43) 02/07/25 05:50 RBC 5.84 10^6/uL (3.85-5.65) H 02/07/25 05:50 Hgb 16.30 g/dL (11.27-16.99) 02/07/25 05:50 Hct 50.0 % (37-53) 02/07/25 05:50 MCV 85.6 fl (82-101) 02/07/25 05:50 MCH 27.9 pg (27-33) 02/07/25 05:50 MCHC 32.6 g/dL (30-55) 02/07/25 05:50 RDW 13.2 % (12.1-15.1) 02/07/25 05:50 Plt Count 220 10^3/cmm (157-399) 02/07/25 05:50 MPV 11.1 fL (7.4-10.4) H 02/07/25 05:50 Neut % (Auto) 74.7 % 02/07/25 05:50 Lymph % (Auto) 14.4 % 02/07/25 05:50 [place] % (Auto) 9.5 % 02/07/25 05:50 Eos % (Auto) 0.5 % 02/07/25 05:50 Baso % (Auto) 0.4 % 02/07/25 05:50 Neut # (Auto) 8.19 10^3/uL (1.8-7.7) H 02/07/25 05:50 Lymph # (Auto) 1.6 10^3/uL (0.8-4.8) 02/07/25 05:50 [place] # (Auto) 1.0 10^3/uL (0.2-0.9) H 02/07/25 05:50 Eos # (Auto) 0.1 10^3/uL (0.0-0.8) 02/07/25 05:50 Baso # (Auto) 0.0 10^3/uL (0.0-0.1) 02/07/25 05:50 Nucleated RBC % (auto) 0 % 02/07/25 05:50 Nucleated RBCs # 0.0 /100WBC 02/07/25 05:50 Sodium 139 mmol/L (136-145) 02/07/25 05:50 Potassium 4.4 mmol/L (3.5-5.1) 02/07/25 05:50 Chloride 102 mmol/L (98-107) 02/07/25 05:50 Carbon Dioxide 26 mmol/L (22-29) 02/07/25 05:50 Anion Gap 15.4 (5-19) 02/07/25 05:50 BUN 17 mg/dL (8-23) 02/07/25 05:50 Creatinine 0.9 mg/dL (0.7-1.2) 02/07/25 05:50 GFR Calculation 84.4 mL/min (90-130) L 02/07/25 05:50 Glucose 126 mg/dL (65-115) H 02/07/25 05:50 Calculated Osmolality 291 mOsm/kg (285-295) 02/07/25 05:50 Calcium 9.1 mg/dL (8.5-10.5) 02/07/25 05:50 Total Bilirubin 0.8 mg/dL (0.15-1.2) 02/07/25 05:50 AST 15 U/L (0-40) 02/07/25 05:50 ALT 18 U/L (0-41) 02/07/25 05:50 Alkaline Phosphatase 70 U/L (40-130) 02/07/25 05:50 Total Protein 7.6 g/dL (6.6-8.7) 02/07/25 05:50 Albumin 4.4 g/dL (3.5-5.2) 02/07/25 05:50 Globulin 3.2 g/dL (1.3-4.6) 02/07/25 05:50 Lipase 50 U/L (13-60) 02/07/25 05:50 Urine Color Yellow (Yellow) 02/07/25 06:08 Urine Appearance Clear (CLEAR) 02/07/25 06:08 Urine pH 5.0 (5-7) 02/07/25 06:08 Ur Specific [place] 1.032 (1.005-1.030) H 02/07/25 06:08 Urine Protein Negative (Negative) 02/07/25 06:08 Urine Glucose (UA) Negative (Normal) 02/07/25 06:08 Urine Ketones Trace (Negative) 02/07/25 06:08 Urine Blood Trace (Negative) A 02/07/25 06:08 Urine Nitrate Negative (Negative) 02/07/25 06:08 Urine Bilirubin Negative (Negative) 02/07/25 06:08 Urine Urobilinogen 1.0 mg/dL (Negative) 02/07/25 06:08 Ur Leukocyte Esterase Negative (Negative) 02/07/25 06:08 Urine RBC 3-5 /hpf (0-2) 02/07/25 06:08 Urine WBC 0-5 /hpf (0-5) 02/07/25 06:08 Ur Squamous Epith Cells 0-5 /hpf (0-5) 02/07/25 06:08 Amorphous Sediment Not Reportable 02/07/25 06:08 Urine Bacteria None seen /hpf (NONE) 02/07/25 06:08 Hyaline Casts 3.71 /lpf 02/07/25 06:08 All radiology interpretation(s) finalized by discharge Discharge Plan Discharge Patient Disposition: Home Clinical Impression: Diverticulitis Condition: Stable Prescriptions: New hydrocodone-acetaminophen 5-325 mg tablet 1 tab PO Q6H PRN (Reason: pain) Qty: 20 0RF ciprofloxacin HCl 500 mg tablet 500 mg PO BID 10 Days Qty: 20 0RF polyethylene glycol 3350 [Miralax] 17 gram/dose powder 17 g PO DAILY Qty: 510 0RF Rx Instructions: Take 1 scoop daily while taking pain medications. metronidazole 500 mg tablet 500 mg PO Q8H 10 Days Qty: 30 0RF ondansetron 4 mg tablet,disintegrating 4 mg PO Q8H PRN (Reason: nausea and vomiting) Qty: 10 0RF No Action Fish Oil 100-160-1,000 mg capsule PO DAILY (DME) orthotic shoes with L3020 inserts See Rx Instructions .Route .MEDSUPPLY Qty: 1 0RF Rx Instructions: As directed to the shoe gukassidy carvedilol 3.125 mg tablet 3.125 mg PO BID Qty: 60 5RF Rx Instructions: must administer with a meal/food finasteride 5 mg tablet 5 mg PO QAM Qty: 90 3RF tamsulosin 0.4 mg capsule See Rx Instructions .ROUTE .COMPLEX Qty: 90 3RF Dose Instruction: TAKE 1 CAPSULE BY MOUTH DAILY Rx Instructions: TAKE 1 CAPSULE BY MOUTH DAILY Discharge Orders: Discharge ED (Routine); Ordered 02/07/25 Ordered By: Elena Huston Discharge Diet: Usual diet Discharge Activity: Increase activity as tolerated Patient Instructions: Diverticulitis (ED), Opioid Safety, Pain Management, Patient Portal & Ravi Instructions Activity Restrictions/Additional Instructions: Thank you for choosing [facility] for your healthcare needs today. You have been screened and evaluated and felt safe for discharge. Health conditions do change or evolve sometimes and as such it is important that you follow up with your Primary Doctor to be re checked, 3-5 days is a general good time frame for follow up. You are always welcome to return to the ED for re assessment if your symptoms are worsening or you have new concerns Print Language: [place]ian Coding Level of Care Code ED Automobile Or Truck Rental Dispatcher for Josr Bennett
[2025-02-07] MEDS: morphine 4 mg/mL SDV 1 mL IVP (05:57)
[2025-02-07 05:59] LABS: Basophils % 0.4 %; Eosinophils # 0.1 10^3/uL (0.0-0.8); Eosinophils % 0.5 %; Lymphocytes # 1.6 10^3/uL (0.8-4.8); Lymphocytes % 14.4 %; Mean Corpuscular HGB Conc 32.6 g/dL (30-55); Mean Corpuscular Hemoglobin 27.9 pg (27-33); Mean Corpuscular Volume 85.6 fl (82-101); Mean Platelet Volume 11.1 fL (7.4-10.4); Monocytes % 9.5 %; Neutrophils # 8.19 10^3/uL (1.8-7.7); Neutrophils % 74.7 %; Nucleated Red Blood Cells % 0 %; Platelet Count 220 10^3/cmm (157-399); Red Blood Count 5.84 10^6/uL (3.85-5.65); Red Cell Distribution Width 13.2 % (12.1-15.1); White Blood Count 10.97 10^3/uL (3.29-11.43)
[2025-02-07] MEDS: sodium chloride 0.9% 1,000 ML 999 ML IV (05:59)
[2025-02-07 06:17] LABS: Alanine Aminotransferase 18 U/L (0-41); Albumin Level 4.4 g/dL (3.5-5.2); Alkaline Phosphatase 70 U/L (40-130); Anion Gap 15.4 (5-19); Aspartate Amino Transferase 15 U/L (0-40); Blood Urea Nitrogen 17 mg/dL (8-23); Calcium 9.1 mg/dL (8.5-10.5); Carbon Dioxide 26 mmol/L (22-29); Chloride 102 mmol/L (98-107); Creatinine Clr Calc Pharmacy 94.6912; Globulin 3.2 g/dL (1.3-4.6); Glomerular Filtration Rate 84.4 mL/min (90-130); Glucose 126 mg/dL (65-115); Lipase 50 U/L (13-60); Osmolality Calculated 291 mOsm/kg (285-295); Potassium 4.4 mmol/L (3.5-5.1); Sodium 139 mmol/L (136-145); Total Bilirubin 0.8 mg/dL (0.15-1.2); Total Protein 7.6 g/dL (6.6-8.7)
[2025-02-07] MEDS: iohexol 350 mg/mL 500 mL Btl (per mL) IV (06:30)
[2025-02-07 06:46] LABS: Bilirubin Urine Negative (Negative); Blood Urine Trace (Negative); Glucose Urine UA Negative (Normal); Ketones Urine Trace (Negative); Leukocyte Esterase Urine Negative (Negative); Nitrate Urine Negative (Negative); Protein Urine Negative (Negative); Urine Appearance Clear (CLEAR); Urine Color Yellow (Yellow)
[2025-02-07 06:51] LABS: Add Urine Microscopic? YES; Bacteria Urine None Seen /hpf; Hyaline Casts Urine 3.71 /lpf; Squamous Epithelial Cell Urine 0-5 /hpf (0-5); WBC Urine 0-5 /hpf (0-5)
[2025-02-07 06:54] LABS: Specific Gravity, Urine 1.032 (1.005-1.030)
[2025-02-07] MEDS: metroNIDAZOLE 500 MG Tablet PO (07:33)
[2025-02-07] MEDS: ciprofloxacin 500 mg Tablet PO (07:34)
[2025-02-07] MEDS: HYDROmorphone 0.5 MG/0.5 ML INJ 1 MG IVP (07:35)
[2025-02-07 07:38] VITALS: BP 125/64; PULSE 62; O2SAT 97
[2025-02-07 08:27] VITALS: BP 135/71; PULSE 60; O2SAT 97
== END 2025-02-07 08:25 | disposition home or self-care (01) ==
PROVIDERS: Student in an Organized Health Care Education/Training Program; Emergency Provider Emergency Medicine
DX: K57.92 Diverticulitis of intestine, part unspecified, without perforation or abscess without bleeding (principal); E78.5 Hyperlipidemia, unspecified
CPT/HCPCS: 36415; 74177; 80053; 81001; 83690; 85025; 96361; 96374; 96375; 99285; J1171; J2270; J7030; J9999

== ENCOUNTER → 2025-03-05 08:32 | Outpatient (BNVA) | payer OTHER, SELFPAY | PROVIDERS: Visit Provider Nurse Practitioner Family | DX: D22.4 Melanocytic nevi of scalp and neck (principal); L57.8 Other skin changes due to chronic exposure to nonionizing radiation; L81.4 Other melanin hyperpigmentation; L91.0 Hypertrophic scar; L21.8 Other seborrheic dermatitis; L82.1 Other seborrheic keratosis; Z08 Encounter for follow-up examination after completed treatment for malignant neoplasm; Z85.828 Personal history of other malignant neoplasm of skin; L57.0 Actinic keratosis | CPT/HCPCS: 17000; 99214 ==

== ENCOUNTER → 2025-03-07 09:30 | Outpatient (BNVA) | payer OTHER, SELFPAY | PROVIDERS: Referring Provider Family Medicine Geriatric Medicine; Visit Provider Surgery | DX: K57.92 Diverticulitis of intestine, part unspecified, without perforation or abscess without bleeding (principal) | CPT/HCPCS: 99203 ==

== ENCOUNTER 2025-05-31 08:53 | Day surgery (SDC) | payer OTHER, SELFPAY ==
[2025-05-31 09:08] VITALS: BP 155/90; PULSE 63; RESP 18; TEMP 36.4; O2SAT 97; BMI 27.8
--- NOTE | 2025-05-31 09:25 | W.PM.OPSFHP ---
Same Day Surgery H&P Indication for Procedure/HPI DATE OF PROCEDURE: May 31, 2025 CHIEF COMPLAINT/INDICATIONFOR SURGICAL PROCEDURE: need for screening colonoscopy PREOP DIAGNOSIS: need for screening colonoscopy PLANNED PROCEDURE: Operation Date: 05/31/25 11:15 Proposed Procedures p Colonoscopy [id number], K57.92(Not Applicable) - Bryce Jett MD Medications/Allergies* Home Medications ?Medication ?Instructions ?Recorded ?Confirmed ?Type rosuvastatin 5 mg tablet 5 mg PO DAILY 04/03/25 05/31/25 History tamsulosin 0.4 mg capsule 0.4 mg PO DAILY 04/03/25 05/31/25 History Allergies/Adverse Reactions Allergy/AdvReac Type Severity Reaction Status Date / Time No Known Allergies Allergy Verified 04/03/25 11:42 Pertinent History/Comorbid Conditions* Medical History (Updated 02/15/25 @ 00:00 by MANUEL Aguilera) Hyperlipidemia Anxiety Benign prostatic hyperplasia with lower urinary tract symptoms Urinary retention Erectile dysfunction Elevated PSA Surgical History (Updated 08/26/20 @ 13:45 by Jem Friedman MD) Status post colonoscopy History of amputation of finger H/O prostate biopsy Family History (Updated 05/19/21 @ 14:49 by Radha Troy RN) Mother, IN HER 60'S Prostate cancer Father COPD (chronic obstructive pulmonary disease) Mother Lung disease Mother Cancer Father Denies family history of Diabetes CAD (coronary artery disease) Clotting disorder Dementia Chronic kidney disease (CKD) Suicide Anesthesia complication Bleeding disorder Stroke Social History Smoking and tobacco/nicotine status: former use of tobacco/nicotine Alcohol intake: current Alcohol intake frequency: holidays/special occasions only Substance/Drug Use: never Adopted: No Caregiver/support person: No Lives independently: No Household members: spouse Marital status: 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
--- NOTE | 2025-05-31 10:11 | ANES.PREANE2 ---
Pre-Anesthetic Assessment Height/Weight: Height 1.8 m Weight 90.718 kg Temp Pulse Resp BP Pulse Ox O2 Del Method 97.6 F 63 18 155/90 97 Room Air 05/31/25 09:08 05/31/25 09:08 05/31/25 09:08 05/31/25 09:08 05/31/25 09:08 05/31/25 09:08 Preop Diagnosis: need for screening colonoscopy Operation Date: 05/31/25 11:15 Proposed Procedures p Colonoscopy [id number] G0105, K57.92(Not Applicable) - Bryce Jett MD Familial anesthetic complications: none Was Beta Jodi taken within 24 hours: N/A Was Clonidine taken within 24 hours: N/A Last intake: Intake Last Liquid Date 05/30/25 Last Liquid Time 23:50 Last Solid Date 05/29/25 Last Solid Time 17:00 Social No alcohol and No tobacco Exam alert, oriented x 3, clear to auscultation bilaterally and regular rate & rhythm Airway Submandibular: within normal limits Cervical ROM: within normal limits Mallampati: Class II Dentition: full History/ROS No significant history except as noted and No significant complaints Pulmonary None reported CV/HEM None reported None reported Hepatic None reported GI None reported Metabolic None reported Musc/skel None reported Neuropsych Anxiety Anesthetic Plan ASA status: 2 Anesthesia: MAC Risk of > 500 ml blood loss (7ml/kg in children): No Medications/Allergies Home Medications ?Medication ?Instructions ?Recorded ?Confirmed ?Last Taken ?Type finasteride 5 mg tablet 5 mg PO QAM #90 tabs 11/21/21 05/31/25 05/29/25 Rx orthotic shoes with L3020 inserts #1 ea 10/29/23 04/03/25 Unknown Rx rosuvastatin 5 mg tablet 5 mg PO DAILY 04/03/25 05/31/25 05/29/25 History tamsulosin 0.4 mg capsule 0.4 mg PO DAILY 04/03/25 05/31/25 05/29/25 History Allergies Allergy/AdvReac Type Severity Reaction Status Date / Time No Known Allergies Allergy Verified 04/03/25 11:42 Current Medications Generic Name Dose Route Start Last Admin Trade Name Freq PRN Reason Stop Dose Admin Sodium Chloride 1,000 mls @ 15 mls/hr 05/31/25 09:03 05/31/25 09:25 Sodium Chloride 0.9% IV 06/01/25 09:02 15 mls/hr .Q24H PRN Administration COLONOSCOPY FLUIDS PFSH Anesthesia Medical History Hyperlipidemia Anxiety Benign prostatic hyperplasia with lower urinary tract symptoms Urinary retention Erectile dysfunction Elevated PSA Surgical History Status post colonoscopy History of amputation of finger H/O prostate biopsy Family History Mother , IN HER 60'S COPD (chronic obstructive pulmonary disease) Lung disease Father Prostate cancer Cancer Denies family history of Diabetes CAD (coronary artery disease) Clotting disorder Dementia Chronic kidney disease (CKD) Suicide Anesthesia complication Bleeding disorder Stroke Social History Smoking and tobacco/nicotine status: former use of tobacco/nicotine Alcohol intake: current Alcohol intake frequency: holidays/special occasions only Substance/Drug Use: never Adopted: No Caregiver/support person: No Lives independently: No Household members: spouse Marital status: Current occupational status: employed 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
[2025-05-31 10:58] VITALS: BP 130/69; PULSE 51; RESP 18; TEMP 36.4; O2SAT 95
[2025-05-31 11:15] VITALS: BP 128/78; PULSE 49; RESP 18; O2SAT 96
--- NOTE | 2025-05-31 11:30 | ANE.PACU2 ---
Inpatient post-anesthesia follow up: Airway intact: Yes Vital signs: Temperature 97.6 F Pulse Rate 49 Respiratory Rate 18 Blood Pressure 128/78 Pulse Oximetry 96 Oxygen Delivery Me thod Room Air Oxygen Flow Rate Fraction of Inspir ed Oxygen Hydration adequate: Yes Nausea and vomiting: No Pain level: 1 Mental status: Baseline
== END 2025-05-31 11:30 | disposition home or self-care (01) ==
PROVIDERS: PCP Family Medicine Geriatric Medicine; Visit Provider Surgery
PROC: 0DJD8ZZ Inspection of Lower Intestinal Tract, Via Natural or Artificial Opening Endoscopic (ICD-10-PCS; CPT 45378; principal; 2025-05-31 11:15)
DX: Z12.11 Encounter for screening for malignant neoplasm of colon (principal); K57.30 Diverticulosis of large intestine without perforation or abscess without bleeding; D12.5 Benign neoplasm of sigmoid colon; D12.3 Benign neoplasm of transverse colon; E78.5 Hyperlipidemia, unspecified; F41.9 Anxiety disorder, unspecified; Z80.42 Family history of malignant neoplasm of prostate; Z87.891 Personal history of nicotine dependence
CPT/HCPCS: 45385; 88305; J2704; J7030

== ENCOUNTER → 2025-06-19 08:31 | Outpatient (BNVA) | payer OTHER, SELFPAY | PROVIDERS: PCP Family Medicine Geriatric Medicine; Visit Provider Surgery | DX: Z09 Encounter for follow-up examination after completed treatment for conditions other than malignant neoplasm (principal) | CPT/HCPCS: 99213 ==